=== PATIENT | male | born 1940 | race Two or more races ===

== ENCOUNTER → 2016-12-06 | Outpatient (REF) | payer MEDICARE ==
[2016-12-06 18:01] LABS: ALBUMIN 3.9 GM/DL (3.2-5.2); ALBUMIN/GLOBULIN RATIO 1.03 (1.00-1.93); BILIRUBIN,TOTAL 0.3 MG/DL (0.2-1.0); CALCIUM LEVEL 8.5 MG/DL (8.8-10.2); CREATININE FOR GFR 1.51 MG/DL (0.70-1.30); GLOMERULAR FILTRATION RATE 47.9 (>42); TOTAL PROTEIN 7.7 GM/DL (6.4-8.2)
[2016-12-06 18:03] LABS: POTASSIUM SERUM 5.2 MEQ/L (3.5-5.1)
[2016-12-06 18:32] LABS: MEAN CORPUSCULAR HEMOGLOBIN 34.5 pg (27.0-33.0); MEAN CORPUSCULAR HGB CONC 33.1 g/dl (32.0-36.5); MEAN CORPUSCULAR VOLUME 104.3 fl (80.0-96.0); RED CELL DISTRIBUTION WIDTH 13.5 % (11.5-14.5); WHITE BLOOD COUNT 8.4 K/mm3 (4.0-10.0)
[2016-12-06 19:16] LABS: EOSINOPHILS 1 % (0-5)
== END ==
LOC: M SFHCLERA 14:53
PROVIDERS: ATTEND Family Medicine
DX: S91.051A Open bite, right ankle, initial encounter (principal); I25.2 Old myocardial infarction; W54.0XXA Bitten by dog, initial encounter; Y92.9 Unspecified place or not applicable; Y93.9 Activity, unspecified; Y99.9 Unspecified external cause status; Z79.899 Other long term (current) drug therapy; Z79.82 Long term (current) use of aspirin
CPT/HCPCS: 80053; 80061; 83036; 85007; 85027; G0463

== ENCOUNTER 2017-03-07 13:54 | Emergency (ER) | payer MEDICARE ==
[~2017-03-07] VITALS: Ht 185.4 cm; Wt 77.1 kg
[2017-03-07] MEDS ORDERED: LISI-542 (14:13)
[2017-03-07] MEDS ORDERED: VITA400C97 PO (14:13)
[2017-03-07] MEDS ORDERED: IRON28TA PO (14:13)
[2017-03-07] MEDS ORDERED: MULTCAP11 PO (14:13)
[2017-03-07] MEDS ORDERED: ASCO25TA PO (14:13)
[2017-03-07] MEDS ORDERED: ASPI81TA85 PO (14:13)
[2017-03-07] MEDS ORDERED: HYDR500C12 (14:13)
[2017-03-07] MEDS ORDERED: METO-209 (14:13)
[2017-03-07] MEDS ORDERED: ATOR40TA (14:13)
--- NOTE | 2017-03-07 16:51 | REP ---
CT HEAD WITHOUT CONTRAST: HISTORY: Trauma. An area of decreased attentuation is present in the left basal ganglia. This represents an old lacunar infarction. Areas of decreased attenuation are present in the periventricular white matter. This represents small vessel ischemic disease. There is no intraparenchymal hemorrhage, mass, or midline shift. The ventricular system and cortical sulci are dilated consistent with mild volume loss. There is no extracerebral collection. There is no fracture. A small subgaleal hematoma is present overlying the left frontal and parietal bones at the vertex. The visualized sinuses are clear. IMPRESSION: 1. Old left basal ganglia lacunar infarction. 2. Small vessel ischemic disease. 2. Mild volume loss. Signed by Óscar Mathews MD 03/07/2017 04:56 P
--- NOTE | 2017-03-07 16:52 | REP ---
CT CERVICAL SPINE WITHOUT CONTRAST: HISTORY: Trauma. There is no acute fracture. Disc bulges are present at the C2-3 through C4-5 levels. Disc bulge with associated osteophyte formation are present at the C5-6 and C6-7 levels. There is minimal narrowing of the spinal canal. Uncinate process and/or facet hypertrophy are present at the C2-3 through C7-T1 levels. These findings produce minimal to moderate narrowing of the neural foramina. The C5-6 and C6-7 intervertebral discs are decreased in height consistent with disc degeneration. There are 2 mm of anterior subluxation of C3 on C4 and C4 on C5. A calcified granuloma is present in the right upper lobe. IMPRESSION: 1. There is no acute fracture. 2. There is cervical spondylosis at the C2-3 through C7-T1 levels. Signed by Óscar Mathews MD 03/07/2017 04:56 P
[2017-03-07 17:28] VITALS: BP 111/55
== END 2017-03-07 17:30 | disposition home or self-care (01) ==
LOC: M ED 15:06
DX: S01.01XA Laceration without foreign body of scalp, initial encounter (principal); W18.09XA Striking against other object with subsequent fall, initial encounter; Y92.014 Private driveway to single-family (private) house as the place of occurrence of the external cause; Y93.55 Activity, bike riding; Y99.8 Other external cause status; M47.813 Spondylosis without myelopathy or radiculopathy, cervicothoracic region; I73.9 Peripheral vascular disease, unspecified; I10 Essential (primary) hypertension; I25.2 Old myocardial infarction; F41.9 Anxiety disorder, unspecified; E78.00 Pure hypercholesterolemia, unspecified; Z79.82 Long term (current) use of aspirin; Z79.899 Other long term (current) drug therapy

== ENCOUNTER → 2017-03-28 | Outpatient (CLI) | payer MEDICARE ==
[~2017-03-28] MED LIST: ASCO25TA PO; ASPI81TA85 PO; ATOR40TA75; HYDR500C3; IRON28TA PO; LISI-542; METO1TAB33; MULTCAP11 PO; VITA400C97 PO
--- NOTE | 2017-03-28 17:42 | REP ---
RIGHT ANKLE, FOUR VIEWS: HISTORY: Injury. There is no acute fracture or dislocation. The joint space is normal in appearance. Osteophytes are present on the inferior and posterior calcaneus. A calcification is present lateral to the distal fibula. This represents ligamentous of tendon calcification. IMPRESSION: There is no acute fracture or dislocation. Signed by Óscar Mathews MD 03/28/2017 06:21 P
== END ==
LOC: M LRY 17:08
PROVIDERS: ATTEND Nurse Practitioner Family
DX: M25.471 Effusion, right ankle (principal)
CPT/HCPCS: 73610; G0463

== ENCOUNTER → 2017-05-03 | Outpatient (REF) | payer MEDICARE | LOC: M SFHCLERA 13:51 | PROVIDERS: ATTEND Family Medicine | DX: M70.21 Olecranon bursitis, right elbow (principal) ==

== ENCOUNTER → 2017-10-03 | Outpatient (REF) | payer MEDICARE ==
[2017-10-03 14:12] LABS: APPEARANCE, URINE CLEAR (CLEAR); BACTERIA, URINE AUTO NEGATIVE (NEGATIVE); BILIRUBIN, URINE AUTO NEGATIVE (NEGATIVE); BLOOD, URINE BLOOD NEGATIVE (NEGATIVE); COLOR, URINE YELLOW (YELLOW); GLUCOSE, URINE (UA) AUTO NEGATIVE (NEGATIVE); KETONE, URINE AUTO NEGATIVE (NEGATIVE); LEUKOCYTE ESTERASE, URINE AUTO NEGATIVE (NEGATIVE); NITRITE, URINE AUTO NEGATIVE (NEGATIVE); PROTEIN, URINE AUTO NEGATIVE (NEGATIVE); RBC, URINE AUTO 0 /HPF (0-3); SPECIFIC GRAVITY URINE AUTO 1.013 (1.002-1.035); SQUAMOUS EPITHELIAL CELL UR AU 0 /HPF (0-6); UROBILINOGEN, URINE AUTO 0.2 mg/dL (0.0-2.0); WBC, URINE AUTO 1 /HPF (0-3)
== END ==
LOC: M SMT 13:18
DX: N40.0 Benign prostatic hyperplasia without lower urinary tract symptoms (principal); R35.1 Nocturia
CPT/HCPCS: 81001

== ENCOUNTER → 2017-10-16 | Outpatient (REF) | payer MEDICARE ==
[2017-10-16 19:04] LABS: D-DIMER QUANT 713.8 ng/ml (<500)
[2017-10-16 19:55] LABS: C REACTIVE PROTEIN QUANTITATIV 0.51 MG/DL (0.00-0.30)
[2017-10-16 20:02] LABS: ERYTHROCYTE SEDIMENTATION RATE 21 mm/hr (0-20); REASON FOR REVIEW COMPREHENSIVE REVIEW; SLIDE REVIEW Report; SOURCE PERIPHERAL SMEAR
== END ==
LOC: M LAB REF 17:19
DX: D47.3 Essential (hemorrhagic) thrombocythemia (principal)
CPT/HCPCS: 86140

== ENCOUNTER 2017-10-20 10:06 | Emergency (ER) | payer MEDICARE ==
[2017-10-20] MEDS: fentaNYL 100 MCG/2 ML INJECTION (J3010) IV (11:18)
[2017-10-20 11:28] LABS: EOS # 0.1 10^3/uL (0.0-0.50); EOS % 0.5 % (0.0-3.0); HEMATOCRIT 35.1 % (42.0-52.0); HEMOGLOBIN 11.6 g/dl (14.0-18.0); IMMATURE GRANULOCYTE # 0.1 10^3/uL (0-0); LYMPH # 1.1 10^3/uL (1.5-4.5); LYMPH % 8.5 % (24.0-44.0); MEAN CORPUSCULAR HEMOGLOBIN 34.6 pg (27.0-33.0); MEAN CORPUSCULAR VOLUME 104.8 fl (80.0-96.0); MONO % 33.1 % (0.0-5.0); NEUTROPHILS # 7.3 10^3/uL (1.8-7.7); NEUTROPHILS % 56.9 % (36.0-66.0); PLATELET COUNT, AUTOMATED 379 10^3/uL (150-450); RED BLOOD COUNT 3.35 10^6/uL (4.30-6.10); RED CELL DISTRIBUTION WIDTH 13.4 % (11.5-14.5); WHITE BLOOD COUNT 12.9 10^3/uL (4.0-10.0)
[2017-10-20 11:39] LABS: INR 1.28; PROTHROMBIN TIME 16.3 SECONDS (12.4-14.5)
[2017-10-20 11:40] LABS: PARTIAL THROMBOPLASTIN TIME 33.4 SECONDS (26.8-37.9)
[2017-10-20 11:57] LABS: ALBUMIN 4.1 GM/DL (3.2-5.2); ALBUMIN/GLOBULIN RATIO 1.08 (1.00-1.93); ALKALINE PHOSPHATASE 109 U/L (45-117); ALT/SGPT 26 U/L (12-78); ANION GAP 8 MEQ/L (8-16); AST/SGOT 32 U/L (7-37); BILIRUBIN,DIRECT 0.1 MG/DL (0.0-0.2); BILIRUBIN,TOTAL 0.4 MG/DL (0.2-1.0); BLOOD UREA NITROGEN 25 MG/DL (7-18); CALCIUM LEVEL 8.4 MG/DL (8.8-10.2); CARBON DIOXIDE LEVEL 25 MEQ/L (21-32); CHLORIDE LEVEL 105 MEQ/L (98-107); CREATININE FOR GFR 1.59 MG/DL (0.70-1.30); GLOMERULAR FILTRATION RATE 45.1 (>42); GLUCOSE, FASTING 98 MG/DL (70-100); LIPASE 187 U/L (73-393); POTASSIUM SERUM 4.8 MEQ/L (3.5-5.1); SODIUM LEVEL 138 MEQ/L (136-145); TOTAL PROTEIN 7.9 GM/DL (6.4-8.2)
[2017-10-20 11:58] LABS: ADD MANUAL DIFFER NO; DIFF SLIDE NUMBER 142; MONO # 4.3 10^3/uL (0.0-0.8); POSITIVE DIFF POS FLAG
[2017-10-20 12:00] LABS: LACTIC ACID SEPSIS PROTOCOL 0.8 MMOL/L (0.4-2.0)
[2017-10-20] MEDS ORDERED: ISOVUE-370 76% 100ML VIAL (Q9967) As Ordered (12:00)
[2017-10-20] MEDS: OXYCODONE/APAP 5MG/325MG(BULK FOR ED) 1 TABLET PO (14:01)
== END 2017-10-20 14:12 | disposition home or self-care (01) ==
LOC: M ED 10:06
DX: M79.81 Nontraumatic hematoma of soft tissue (principal); I10 Essential (primary) hypertension; I45.10 Unspecified right bundle-branch block; I25.10 Atherosclerotic heart disease of native coronary artery without angina pectoris; E78.00 Pure hypercholesterolemia, unspecified; F41.9 Anxiety disorder, unspecified; F03.90 Unspecified dementia, unspecified severity, without behavioral disturbance, psychotic disturbance, mood disturbance, and anxiety; D61.9 Aplastic anemia, unspecified; Z79.899 Other long term (current) drug therapy

== ENCOUNTER 2017-10-22 18:45 | Inpatient (IN) | payer MEDICARE ==
[~2017-10-22 18:45] MED LIST changes: -ASCO25TA PO; -ASPI81TA85 PO; -ATOR40TA75; -HYDR500C3; +HYDROXYUREA 500 MG CAP PO; -IRON28TA PO; -LISI-542; -METO1TAB33; -MULTCAP11 PO; -VITA400C97 PO
[2017-10-22 19:15] LABS: BASO % 0.1 % (0.0-1.0); EOS % 0.2 % (0.0-3.0); HEMATOCRIT 30.3 % (42.0-52.0); IMMATURE GRANULOCYTE # 0.2 10^3/uL (0-0); IMMATURE GRANULOCYTE % 0.8 % (0-0); LYMPH # 0.9 10^3/uL (1.5-4.5); LYMPH % 4.7 % (24.0-44.0); MEAN CORPUSCULAR HEMOGLOBIN 34.6 pg (27.0-33.0); MEAN CORPUSCULAR VOLUME 104.8 fl (80.0-96.0); NEUTROPHILS # 14.5 10^3/uL (1.8-7.7); NEUTROPHILS % 75.2 % (36.0-66.0); PLATELET COUNT, AUTOMATED 347 10^3/uL (150-450); RED BLOOD COUNT 2.89 10^6/uL (4.30-6.10); RED CELL DISTRIBUTION WIDTH 13.4 % (11.5-14.5); WHITE BLOOD COUNT 19.3 10^3/uL (4.0-10.0)
[2017-10-22 19:17] LABS: VENOUS BASE EXCESS -2.6 (-2.0-2.0); VENOUS O2 SATURATION 47.7 % (60.0-80.0); VENOUS PARTIAL PRESSURE CO2 49.5 mmHg (38.0-50.0); VENOUS PARTIAL PRESSURE O2 28.1 mmHg (30.0-50.0); VENOUS PH 7.303 UNITS (7.330-7.430); VENOUS STANDARD HCO3 21.4 MEQ/L; VENOUS TOTAL CO2 25.5 MEQ/L (24.0-28.0)
[2017-10-22 19:34] LABS: AMMONIA 10 uMOL/L (<32)
[2017-10-22 19:37] LABS: OSMOLALITY SERUM 285 MOSM/KG (280-301)
[2017-10-22 19:38] LABS: LACTIC ACID SEPSIS PROTOCOL 1.1 MMOL/L (0.4-2.0)
[2017-10-22 19:40] LABS: MONO # 3.7 10^3/uL (0.0-0.8); POSITIVE DIFF POS FLAG; POSITIVE MORPH POS FLAG
[2017-10-22 19:53] LABS: BEDSIDE GLUCOSE 135 MG/DL (83-110)
[2017-10-22 19:54] LABS: ALBUMIN 3.7 GM/DL (3.2-5.2); ALBUMIN/GLOBULIN RATIO 1.06 (1.00-1.93); ALKALINE PHOSPHATASE 100 U/L (45-117); ALT/SGPT 20 U/L (12-78); ANION GAP 9 MEQ/L (8-16); AST/SGOT 31 U/L (7-37); BILIRUBIN,DIRECT 0.2 MG/DL (0.0-0.2); BILIRUBIN,TOTAL 0.6 MG/DL (0.2-1.0); BLOOD UREA NITROGEN 32 MG/DL (7-18); CALCIUM LEVEL 8.1 MG/DL (8.8-10.2); CARBON DIOXIDE LEVEL 25 MEQ/L (21-32); CHLORIDE LEVEL 100 MEQ/L (98-107); CPK CREATINE PHOSPHOKINASE 147 U/L (39-308); CREATININE FOR GFR 1.79 MG/DL (0.70-1.30); GLOMERULAR FILTRATION RATE 39.3 (>42); GLUCOSE, FASTING 129 MG/DL (70-100); POTASSIUM SERUM 5.1 MEQ/L (3.5-5.1); SODIUM LEVEL 134 MEQ/L (136-145); TOTAL PROTEIN 7.2 GM/DL (6.4-8.2); TROPONIN I < 0.02 NG/ML (< 0.10)
[2017-10-22 20:00] LABS: CK-MB VALUE MASS 2.6 NG/ML (0.0-3.6); MB/CK RELATIVE INDEX 1.76 (< OR =4)
[2017-10-22 21:04] LABS: AMORPHOUS SEDIMENT RFX SMALL (NEGATIVE); KETONE, URINE AUTO RFX NEGATIVE (NEGATIVE); LEUKOCYTE ESTERASE UR AUTO RFX NEGATIVE (NEGATIVE); MUCUS, URINE RFX SMALL (NEGATIVE); NITRITE, URINE AUTO RFX NEGATIVE (NEGATIVE); RBC, URINE AUTO RFX 3 /HPF (0-3); SPECIFIC GRAVITY UR AUTO RFX 1.017 (1.002-1.035); SQUAM EPITHELIAL CELL UR AURFX 0 /HPF (0-6); WBC, URINE AUTO RFX 3 /HPF (0-3)
[2017-10-22] MEDS: NS 500 ML IV (21:19)
[2017-10-22] MEDS ORDERED: NS 1,000 ML IV (22:29)
[2017-10-22] MEDS ORDERED: ONDANSETRON 4MG/2ML VIAL (J2405) IV (22:30)
[2017-10-22] MEDS ORDERED: ACETAMINOPHEN TAB 650MG DOSE (2X325MG) PO (22:30)
[2017-10-22] MEDS: LORazepam 2 MG/ML VIAL (J2060) IV (23:02)
[2017-10-22] MEDS: HALOPERIDOL 5 MG/ML VIAL (J1630) IM ×2 (23:10→23:46)
[2017-10-22 23:15] LABS: C REACTIVE PROTEIN QUANTITATIV 2.72 MG/DL (0.00-0.30); FREE THYROXINE INDEX 3.3 % (1.4-3.8); LDH LACTATE DEHYDROGENASE 313 U/L (87-241); T UPTAKE 34 % (33-40); THYROXINE (T4) 9.8 UG/DL (4.5-12.0)
[2017-10-22 23:23] LABS: REASON FOR REVIEW COMPREHENSIVE REVIEW; SLIDE REVIEW Report; SOURCE PERIPHERAL SMEAR
[2017-10-22] MEDS: PIPERACILLIN/TAZOBACTAM SOD 2.25 GM in APPROPRIATE DILUENT 1 EA IV (23:25)
[2017-10-22 23:48] LABS: ERYTHROCYTE SEDIMENTATION RATE 52 mm/hr (0-20)
[2017-10-22] MEDS: diphenhydrAMINE INJ 50MG/ML VIAL (J1200) IM (23:58)
[2017-10-23] MEDS: diphenhydrAMINE INJ 50MG/ML VIAL (J1200) IV (00:17)
[2017-10-23] MEDS: NS 1,000 ML IV (01:02)
[2017-10-23] MEDS: ASPIRIN 81 MG ENTERIC TAB PO ×2 (01:03→21:18)
[2017-10-23] MEDS: HYDROXYUREA 500 MG CAP PO ×2 (01:03→21:18)
[2017-10-23] MEDS: FERROUS SULFATE 325MG TAB PO ×2 (01:03→21:18)
[2017-10-23] MEDS: ASCORBIC ACID 500 MG TAB PO ×2 (01:03→21:18)
[2017-10-23 07:22] LABS: BASO % 0.1 % (0.0-1.0); EOS # 0.1 10^3/uL (0.0-0.50); EOS % 0.3 % (0.0-3.0); HEMATOCRIT 27.4 % (42.0-52.0); HEMOGLOBIN 9.1 g/dl (14.0-18.0); IMMATURE GRANULOCYTE # 0.1 10^3/uL (0-0); IMMATURE GRANULOCYTE % 0.7 % (0-0); LYMPH # 1.5 10^3/uL (1.5-4.5); LYMPH % 10.2 % (24.0-44.0); MEAN CORPUSCULAR HEMOGLOBIN 34.3 pg (27.0-33.0); MEAN CORPUSCULAR HGB CONC 33.2 g/dl (32.0-36.5); MEAN CORPUSCULAR VOLUME 103.4 fl (80.0-96.0); MONO % 25.7 % (0.0-5.0); NEUTROPHILS # 9.3 10^3/uL (1.8-7.7); PLATELET COUNT, AUTOMATED 321 10^3/uL (150-450); RED BLOOD COUNT 2.65 10^6/uL (4.30-6.10); RED CELL DISTRIBUTION WIDTH 13.2 % (11.5-14.5); WHITE BLOOD COUNT 14.8 10^3/uL (4.0-10.0)
[2017-10-23 07:44] LABS: ANION GAP 8 MEQ/L (8-16); BLOOD UREA NITROGEN 24 MG/DL (7-18); CALCIUM LEVEL 8.1 MG/DL (8.8-10.2); CARBON DIOXIDE LEVEL 24 MEQ/L (21-32); CHLORIDE LEVEL 105 MEQ/L (98-107); GLOMERULAR FILTRATION RATE 48.2 (>42); GLUCOSE, FASTING 80 MG/DL (70-100); SODIUM LEVEL 137 MEQ/L (136-145)
[2017-10-23 07:49] LABS: MONO # 3.8 10^3/uL (0.0-0.8); POSITIVE DIFF POS FLAG
[2017-10-23 08:43] LABS: C REACTIVE PROTEIN QUANTITATIV 2.57 MG/DL (0.00-0.30)
[2017-10-23] MEDS: MULTIVITAMINS/MINERALS THERAP 1 TAB PO (10:06)
[2017-10-23] MEDS: OSELTAMIVIR PHOSPHATE 30MG CAPSULE PO ×2 (10:06→21:17)
[2017-10-23] MEDS: VITAMIN D 1,000 INTERNATIONAL UNITS TABLET PO (10:06)
[2017-10-23] MEDS: ATORVASTATIN 20 MG TAB PO (10:06)
[2017-10-23] MEDS: HEPARIN SOD (PORCINE) 5000 UNITS/ML VIAL SQ (21:19)
[2017-10-24 06:29] LABS: HEMATOCRIT 29.5 % (42.0-52.0); HEMOGLOBIN 9.6 g/dl (14.0-18.0); MEAN CORPUSCULAR HEMOGLOBIN 33.8 pg (27.0-33.0); MEAN CORPUSCULAR HGB CONC 32.5 g/dl (32.0-36.5); MEAN CORPUSCULAR VOLUME 103.9 fl (80.0-96.0); PLATELET COUNT, AUTOMATED 350 10^3/uL (150-450); RED BLOOD COUNT 2.84 10^6/uL (4.30-6.10); RED CELL DISTRIBUTION WIDTH 13.1 % (11.5-14.5); WHITE BLOOD COUNT 14.5 10^3/uL (4.0-10.0)
[2017-10-24 06:30] LABS: ADD MANUAL DIFFER YES; DIFF SLIDE NUMBER 54; POSITIVE DIFF POS FLAG; POSITIVE MORPH POS FLAG
[2017-10-24 06:47] LABS: ANION GAP 6 MEQ/L (8-16); BLOOD UREA NITROGEN 21 MG/DL (7-18); C REACTIVE PROTEIN QUANTITATIV 2.94 MG/DL (0.00-0.30); CALCIUM LEVEL 8.4 MG/DL (8.8-10.2); CARBON DIOXIDE LEVEL 27 MEQ/L (21-32); CHLORIDE LEVEL 105 MEQ/L (98-107); CREATININE FOR GFR 1.33 MG/DL (0.70-1.30); GLOMERULAR FILTRATION RATE 55.4 (>42); GLUCOSE, FASTING 86 MG/DL (70-100); SODIUM LEVEL 138 MEQ/L (136-145)
[2017-10-24 06:55] LABS: ATYPICAL LYMPH 1 % (0-5); LYMPHOCYTES 14 % (16-52); MONOCYTES 26 % (0-8); NEUTROPHILS 59 % (35-75)
[2017-10-24 06:56] LABS: GIANT PLATELETS 2+; PLATELET ESTIMATE NORMAL (NORMAL)
[2017-10-24] MEDS: VITAMIN D 1,000 INTERNATIONAL UNITS TABLET PO (09:54)
[2017-10-24] MEDS: ATORVASTATIN 20 MG TAB PO (09:54)
[2017-10-24] MEDS: OSELTAMIVIR PHOSPHATE 30MG CAPSULE PO ×2 (09:54→20:26)
[2017-10-24] MEDS: MULTIVITAMINS/MINERALS THERAP 1 TAB PO (09:54)
[2017-10-24] MEDS: HEPARIN SOD (PORCINE) 5000 UNITS/ML VIAL SQ ×2 (09:55→20:26)
[2017-10-24] MEDS: METOPROLOL SUCC (TopROL XL) 50MG **XL** TAB PO (13:03)
[2017-10-24] MEDS: ASCORBIC ACID 500 MG TAB PO (20:25)
[2017-10-24] MEDS: ASPIRIN 81 MG ENTERIC TAB PO (20:25)
[2017-10-24] MEDS: FERROUS SULFATE 325MG TAB PO (20:25)
[2017-10-24] MEDS: HYDROXYUREA 500 MG CAP PO (20:25)
[2017-10-25 06:29] LABS: BASO % 0.1 % (0.0-1.0); EOS # 0.1 10^3/uL (0.0-0.50); EOS % 0.3 % (0.0-3.0); HEMATOCRIT 31.1 % (42.0-52.0); HEMOGLOBIN 10.3 g/dl (14.0-18.0); IMMATURE GRANULOCYTE # 0.1 10^3/uL (0-0); IMMATURE GRANULOCYTE % 0.3 % (0-0); LYMPH # 1.4 10^3/uL (1.5-4.5); LYMPH % 8.7 % (24.0-44.0); MEAN CORPUSCULAR HEMOGLOBIN 34.2 pg (27.0-33.0); MEAN CORPUSCULAR HGB CONC 33.1 g/dl (32.0-36.5); MEAN CORPUSCULAR VOLUME 103.3 fl (80.0-96.0); MONO % 25.5 % (0.0-5.0); NEUTROPHILS # 10.7 10^3/uL (1.8-7.7); NEUTROPHILS % 65.1 % (36.0-66.0); PLATELET COUNT, AUTOMATED 427 10^3/uL (150-450); RED BLOOD COUNT 3.01 10^6/uL (4.30-6.10); RED CELL DISTRIBUTION WIDTH 13.2 % (11.5-14.5); WHITE BLOOD COUNT 16.4 10^3/uL (4.0-10.0)
[2017-10-25 06:30] LABS: MONO # 4.2 10^3/uL (0.0-0.8); POSITIVE DIFF POS FLAG
[2017-10-25 06:49] LABS: ANION GAP 7 MEQ/L (8-16); BLOOD UREA NITROGEN 19 MG/DL (7-18); C REACTIVE PROTEIN QUANTITATIV 2.49 MG/DL (0.00-0.30); CALCIUM LEVEL 8.8 MG/DL (8.8-10.2); CARBON DIOXIDE LEVEL 26 MEQ/L (21-32); CHLORIDE LEVEL 103 MEQ/L (98-107); CREATININE FOR GFR 1.34 MG/DL (0.70-1.30); GLOMERULAR FILTRATION RATE 54.9 (>42); GLUCOSE, FASTING 98 MG/DL (70-100); POTASSIUM SERUM 3.9 MEQ/L (3.5-5.1); SODIUM LEVEL 136 MEQ/L (136-145)
[2017-10-25] MEDS: METOPROLOL SUCC (TopROL XL) 50MG **XL** TAB PO (09:00)
[2017-10-25] MEDS: MULTIVITAMINS/MINERALS THERAP 1 TAB PO (10:15)
[2017-10-25] MEDS: ATORVASTATIN 20 MG TAB PO (10:15)
[2017-10-25] MEDS: VITAMIN D 1,000 INTERNATIONAL UNITS TABLET PO (10:16)
[2017-10-25] MEDS: HEPARIN SOD (PORCINE) 5000 UNITS/ML VIAL SQ ×2 (10:16→20:31)
[2017-10-25] MEDS: OSELTAMIVIR PHOSPHATE 30MG CAPSULE PO ×2 (10:16→20:32)
[2017-10-25] MEDS: FERROUS SULFATE 325MG TAB PO (20:31)
[2017-10-25] MEDS: ASCORBIC ACID 500 MG TAB PO (20:32)
[2017-10-25] MEDS: ASPIRIN 81 MG ENTERIC TAB PO (20:32)
[2017-10-25] MEDS: HYDROXYUREA 500 MG CAP PO (20:32)
[2017-10-26 06:43] LABS: BASO % 0.1 % (0.0-1.0); EOS # 0.1 10^3/uL (0.0-0.50); EOS % 0.4 % (0.0-3.0); HEMATOCRIT 29.2 % (42.0-52.0); HEMOGLOBIN 9.7 g/dl (14.0-18.0); IMMATURE GRANULOCYTE # 0.1 10^3/uL (0-0); IMMATURE GRANULOCYTE % 0.4 % (0-0); LYMPH # 1.6 10^3/uL (1.5-4.5); LYMPH % 9.9 % (24.0-44.0); MEAN CORPUSCULAR HEMOGLOBIN 33.9 pg (27.0-33.0); MEAN CORPUSCULAR HGB CONC 33.2 g/dl (32.0-36.5); MEAN CORPUSCULAR VOLUME 102.1 fl (80.0-96.0); MONO # 4.9 10^3/uL (0.0-0.8); MONO % 30.3 % (0.0-5.0); NEUTROPHILS # 9.6 10^3/uL (1.8-7.7); NEUTROPHILS % 58.9 % (36.0-66.0); PLATELET COUNT, AUTOMATED 434 10^3/uL (150-450); POSITIVE DIFF POS FLAG; RED BLOOD COUNT 2.86 10^6/uL (4.30-6.10); WHITE BLOOD COUNT 16.3 10^3/uL (4.0-10.0)
[2017-10-26 06:59] LABS: ANION GAP 5 MEQ/L (8-16); BLOOD UREA NITROGEN 18 MG/DL (7-18); C REACTIVE PROTEIN QUANTITATIV 1.56 MG/DL (0.00-0.30); CALCIUM LEVEL 8.7 MG/DL (8.8-10.2); CARBON DIOXIDE LEVEL 27 MEQ/L (21-32); CHLORIDE LEVEL 105 MEQ/L (98-107); CREATININE FOR GFR 1.31 MG/DL (0.70-1.30); GLOMERULAR FILTRATION RATE 56.3 (>42); GLUCOSE, FASTING 93 MG/DL (70-100); POTASSIUM SERUM 4.3 MEQ/L (3.5-5.1); SODIUM LEVEL 137 MEQ/L (136-145)
[2017-10-26] MEDS: OSELTAMIVIR PHOSPHATE 30MG CAPSULE PO ×2 (10:12→20:34)
[2017-10-26] MEDS: ATORVASTATIN 20 MG TAB PO (10:13)
[2017-10-26] MEDS: MULTIVITAMINS/MINERALS THERAP 1 TAB PO (10:13)
[2017-10-26] MEDS: VITAMIN D 1,000 INTERNATIONAL UNITS TABLET PO (10:13)
[2017-10-26] MEDS: HEPARIN SOD (PORCINE) 5000 UNITS/ML VIAL SQ ×2 (10:14→20:34)
[2017-10-26] MEDS: METOPROLOL SUCC (TopROL XL) 50MG **XL** TAB PO (10:14)
[2017-10-26] MEDS: ASCORBIC ACID 500 MG TAB PO (20:34)
[2017-10-26] MEDS: HYDROXYUREA 500 MG CAP PO (20:34)
[2017-10-26] MEDS: FERROUS SULFATE 325MG TAB PO (20:35)
[2017-10-26] MEDS: ASPIRIN 81 MG ENTERIC TAB PO (20:35)
[2017-10-27 07:01] LABS: HEMOGLOBIN 10.1 g/dl (14.0-18.0); MEAN CORPUSCULAR HEMOGLOBIN 33.6 pg (27.0-33.0); MEAN CORPUSCULAR HGB CONC 32.6 g/dl (32.0-36.5); PLATELET COUNT, AUTOMATED 510 10^3/uL (150-450); RED BLOOD COUNT 3.01 10^6/uL (4.30-6.10); RED CELL DISTRIBUTION WIDTH 13.2 % (11.5-14.5)
[2017-10-27 07:19] LABS: ANION GAP 8 MEQ/L (8-16); BLOOD UREA NITROGEN 23 MG/DL (7-18); C REACTIVE PROTEIN QUANTITATIV 1.28 MG/DL (0.00-0.30); CALCIUM LEVEL 8.8 MG/DL (8.8-10.2); CARBON DIOXIDE LEVEL 26 MEQ/L (21-32); CHLORIDE LEVEL 104 MEQ/L (98-107); GLOMERULAR FILTRATION RATE 52.2 (>42); GLUCOSE, FASTING 85 MG/DL (70-100); POTASSIUM SERUM 4.2 MEQ/L (3.5-5.1); SODIUM LEVEL 138 MEQ/L (136-145)
[2017-10-27 07:21] LABS: ADD MANUAL DIFFER YES; DIFF SLIDE NUMBER 15; POSITIVE DIFF POS FLAG
[2017-10-27 07:46] LABS: ATYPICAL LYMPH 1 % (0-5); EOSINOPHILS 1 % (0-5); LYMPHOCYTES 8 % (16-52); MONOCYTES 24 % (0-8); NEUTROPHILS 66 % (35-75)
[2017-10-27 07:51] LABS: GIANT PLATELETS 1+
[2017-10-27 07:52] LABS: PLATELET ESTIMATE INCREASED (NORMAL)
[2017-10-27] MEDS: METOPROLOL SUCC (TopROL XL) 50MG **XL** TAB PO (09:00)
[2017-10-27] MEDS: ATORVASTATIN 20 MG TAB PO (09:13)
[2017-10-27] MEDS: MULTIVITAMINS/MINERALS THERAP 1 TAB PO (09:13)
[2017-10-27] MEDS: HEPARIN SOD (PORCINE) 5000 UNITS/ML VIAL SQ ×2 (09:13→20:51)
[2017-10-27] MEDS: VITAMIN D 1,000 INTERNATIONAL UNITS TABLET PO (09:14)
[2017-10-27] MEDS: OSELTAMIVIR PHOSPHATE 30MG CAPSULE PO ×2 (10:25→20:51)
[2017-10-27] MEDS: HYDROXYUREA 500 MG CAP PO (20:51)
[2017-10-27] MEDS: FERROUS SULFATE 325MG TAB PO (20:51)
[2017-10-27] MEDS: ASCORBIC ACID 500 MG TAB PO (20:52)
[2017-10-27] MEDS: ASPIRIN 81 MG ENTERIC TAB PO (20:52)
[2017-10-28 06:23] LABS: BASO % 0.1 % (0.0-1.0); EOS # 0.1 10^3/uL (0.0-0.50); EOS % 0.5 % (0.0-3.0); HEMATOCRIT 31.5 % (42.0-52.0); HEMOGLOBIN 10.3 g/dl (14.0-18.0); IMMATURE GRANULOCYTE # 0.1 10^3/uL (0-0); IMMATURE GRANULOCYTE % 0.7 % (0-0); LYMPH # 1.8 10^3/uL (1.5-4.5); LYMPH % 9.8 % (24.0-44.0); MEAN CORPUSCULAR HEMOGLOBIN 33.4 pg (27.0-33.0); MEAN CORPUSCULAR HGB CONC 32.7 g/dl (32.0-36.5); MEAN CORPUSCULAR VOLUME 102.3 fl (80.0-96.0); MONO % 34.5 % (0.0-5.0); NEUTROPHILS % 54.4 % (36.0-66.0); PLATELET COUNT, AUTOMATED 553 10^3/uL (150-450); RED BLOOD COUNT 3.08 10^6/uL (4.30-6.10); RED CELL DISTRIBUTION WIDTH 13.2 % (11.5-14.5); WHITE BLOOD COUNT 18.5 10^3/uL (4.0-10.0)
[2017-10-28 06:56] LABS: ANION GAP 10 MEQ/L (8-16); BLOOD UREA NITROGEN 25 MG/DL (7-18); CARBON DIOXIDE LEVEL 22 MEQ/L (21-32); CHLORIDE LEVEL 104 MEQ/L (98-107); CREATININE FOR GFR 1.35 MG/DL (0.70-1.30); GLOMERULAR FILTRATION RATE 54.4 (>42); GLUCOSE, FASTING 88 MG/DL (70-100); MAGNESIUM LEVEL 2.3 MG/DL (1.8-2.4); MONO # 6.4 10^3/uL (0.0-0.8); POSITIVE DIFF POS FLAG; SODIUM LEVEL 136 MEQ/L (136-145)
[2017-10-28] MEDS: VITAMIN D 1,000 INTERNATIONAL UNITS TABLET PO (08:12)
[2017-10-28] MEDS: MULTIVITAMINS/MINERALS THERAP 1 TAB PO (08:12)
[2017-10-28] MEDS: HEPARIN SOD (PORCINE) 5000 UNITS/ML VIAL SQ ×2 (08:12→19:59)
[2017-10-28] MEDS: ATORVASTATIN 20 MG TAB PO (08:13)
[2017-10-28] MEDS: OSELTAMIVIR PHOSPHATE 30MG CAPSULE PO (08:13)
[2017-10-28] MEDS: METOPROLOL SUCC (TopROL XL) 50MG **XL** TAB PO (08:14)
[2017-10-28] MEDS: BISACODYL 5 MG TAB PO (10:21)
[2017-10-28] MEDS: ASPIRIN 81 MG ENTERIC TAB PO (19:57)
[2017-10-28] MEDS: FERROUS SULFATE 325MG TAB PO (19:58)
[2017-10-28] MEDS: HYDROXYUREA 500 MG CAP PO (19:58)
[2017-10-28] MEDS: ASCORBIC ACID 500 MG TAB PO (19:58)
[2017-10-29] MEDS: ATORVASTATIN 20 MG TAB PO (08:13)
[2017-10-29] MEDS: MULTIVITAMINS/MINERALS THERAP 1 TAB PO (08:13)
[2017-10-29] MEDS: VITAMIN D 1,000 INTERNATIONAL UNITS TABLET PO (08:13)
[2017-10-29] MEDS: HEPARIN SOD (PORCINE) 5000 UNITS/ML VIAL SQ ×2 (08:14→21:52)
[2017-10-29] MEDS: METOPROLOL SUCC (TopROL XL) 50MG **XL** TAB PO (08:14)
[2017-10-29 08:19] LABS: BASO % 0.1 % (0.0-1.0); EOS # 0.1 10^3/uL (0.0-0.50); EOS % 0.5 % (0.0-3.0); HEMATOCRIT 30.7 % (42.0-52.0); HEMOGLOBIN 10.1 g/dl (14.0-18.0); IMMATURE GRANULOCYTE # 0.1 10^3/uL (0-0); IMMATURE GRANULOCYTE % 0.6 % (0-0); LYMPH # 1.3 10^3/uL (1.5-4.5); LYMPH % 7.8 % (24.0-44.0); MEAN CORPUSCULAR HEMOGLOBIN 33.8 pg (27.0-33.0); MEAN CORPUSCULAR HGB CONC 32.9 g/dl (32.0-36.5); MEAN CORPUSCULAR VOLUME 102.7 fl (80.0-96.0); MONO % 37.2 % (0.0-5.0); NEUTROPHILS # 8.8 10^3/uL (1.8-7.7); NEUTROPHILS % 53.8 % (36.0-66.0); PLATELET COUNT, AUTOMATED 542 10^3/uL (150-450); RED BLOOD COUNT 2.99 10^6/uL (4.30-6.10); RED CELL DISTRIBUTION WIDTH 13.4 % (11.5-14.5); WHITE BLOOD COUNT 16.4 10^3/uL (4.0-10.0)
[2017-10-29 08:41] LABS: ANION GAP 5 MEQ/L (8-16); BLOOD UREA NITROGEN 25 MG/DL (7-18); CALCIUM LEVEL 8.9 MG/DL (8.8-10.2); CARBON DIOXIDE LEVEL 26 MEQ/L (21-32); CHLORIDE LEVEL 106 MEQ/L (98-107); GLOMERULAR FILTRATION RATE 52.2 (>42); GLUCOSE, FASTING 92 MG/DL (70-100); MAGNESIUM LEVEL 2.5 MG/DL (1.8-2.4); POTASSIUM SERUM 4.6 MEQ/L (3.5-5.1); SODIUM LEVEL 137 MEQ/L (136-145)
[2017-10-29 08:45] LABS: MONO # 6.1 10^3/uL (0.0-0.8); POSITIVE DIFF POS FLAG
[2017-10-29] MEDS: ASPIRIN 81 MG ENTERIC TAB PO (21:51)
[2017-10-29] MEDS: FERROUS SULFATE 325MG TAB PO (21:51)
[2017-10-29] MEDS: ASCORBIC ACID 500 MG TAB PO (21:51)
[2017-10-29] MEDS: HYDROXYUREA 500 MG CAP PO (21:52)
[2017-10-30 05:50] LABS: HEMATOCRIT 29.6 % (42.0-52.0); HEMOGLOBIN 9.7 g/dl (14.0-18.0); MEAN CORPUSCULAR HGB CONC 32.8 g/dl (32.0-36.5); MEAN CORPUSCULAR VOLUME 103.9 fl (80.0-96.0); PLATELET COUNT, AUTOMATED 488 10^3/uL (150-450); RED BLOOD COUNT 2.85 10^6/uL (4.30-6.10); RED CELL DISTRIBUTION WIDTH 13.4 % (11.5-14.5); WHITE BLOOD COUNT 15.6 10^3/uL (4.0-10.0)
[2017-10-30 05:53] LABS: ADD MANUAL DIFFER YES; DIFF SLIDE NUMBER 49; POSITIVE DIFF POS FLAG; POSITIVE MORPH POS FLAG
[2017-10-30 06:09] LABS: ANION GAP 9 MEQ/L (8-16); BLOOD UREA NITROGEN 27 MG/DL (7-18); CARBON DIOXIDE LEVEL 25 MEQ/L (21-32); CHLORIDE LEVEL 102 MEQ/L (98-107); CREATININE FOR GFR 1.47 MG/DL (0.70-1.30); GLOMERULAR FILTRATION RATE 49.3 (>42); GLUCOSE, FASTING 93 MG/DL (70-100); MAGNESIUM LEVEL 2.4 MG/DL (1.8-2.4); POTASSIUM SERUM 4.2 MEQ/L (3.5-5.1); SODIUM LEVEL 136 MEQ/L (136-145)
[2017-10-30 07:33] LABS: ANISOCYTOSIS 2+; BASOPHILS 1 % (0-4); EOSINOPHILS 2 % (0-5); LYMPHOCYTES 14 % (16-52); MONOCYTES 25 % (0-8); MYELOCYTES 1 % (0-0); NEUTROPHILS 57 % (35-75)
[2017-10-30 07:34] LABS: PLATELET ESTIMATE INCREASED (NORMAL); POLYCHROMASIA 1+
[2017-10-30] MEDS: ATORVASTATIN 20 MG TAB PO (09:00)
[2017-10-30] MEDS: VITAMIN D 1,000 INTERNATIONAL UNITS TABLET PO (09:00)
[2017-10-30] MEDS: METOPROLOL SUCC (TopROL XL) 50MG **XL** TAB PO (09:00)
[2017-10-30] MEDS: MULTIVITAMINS/MINERALS THERAP 1 TAB PO (09:00)
[2017-10-30] MEDS: HEPARIN SOD (PORCINE) 5000 UNITS/ML VIAL SQ ×2 (09:00→21:50)
[2017-10-30] MEDS: HYDROXYUREA 500 MG CAP PO (21:50)
[2017-10-30] MEDS: ASPIRIN 81 MG ENTERIC TAB PO (21:51)
[2017-10-30] MEDS: FERROUS SULFATE 325MG TAB PO (21:51)
[2017-10-30] MEDS: ASCORBIC ACID 500 MG TAB PO (21:51)
[2017-10-31 05:43] LABS: BASO % 0.2 % (0.0-1.0); EOS # 0.2 10^3/uL (0.0-0.50); HEMATOCRIT 30.5 % (42.0-52.0); HEMOGLOBIN 9.9 g/dl (14.0-18.0); IMMATURE GRANULOCYTE # 0.1 10^3/uL (0-0); IMMATURE GRANULOCYTE % 0.8 % (0-0); LYMPH # 1.3 10^3/uL (1.5-4.5); LYMPH % 8.1 % (24.0-44.0); MEAN CORPUSCULAR HEMOGLOBIN 33.8 pg (27.0-33.0); MEAN CORPUSCULAR HGB CONC 32.5 g/dl (32.0-36.5); MEAN CORPUSCULAR VOLUME 104.1 fl (80.0-96.0); MONO % 43.3 % (0.0-5.0); NEUTROPHILS # 7.7 10^3/uL (1.8-7.7); NEUTROPHILS % 46.6 % (36.0-66.0); PLATELET COUNT, AUTOMATED 501 10^3/uL (150-450); RED BLOOD COUNT 2.93 10^6/uL (4.30-6.10); RED CELL DISTRIBUTION WIDTH 13.5 % (11.5-14.5); WHITE BLOOD COUNT 16.5 10^3/uL (4.0-10.0)
[2017-10-31 05:45] LABS: MONO # 7.2 10^3/uL (0.0-0.8); POSITIVE DIFF POS FLAG
[2017-10-31 06:05] LABS: ANION GAP 9 MEQ/L (8-16); BLOOD UREA NITROGEN 25 MG/DL (7-18); CARBON DIOXIDE LEVEL 24 MEQ/L (21-32); CHLORIDE LEVEL 105 MEQ/L (98-107); CREATININE FOR GFR 1.38 MG/DL (0.70-1.30); GLOMERULAR FILTRATION RATE 53.1 (>42); GLUCOSE, FASTING 88 MG/DL (70-100); MAGNESIUM LEVEL 2.5 MG/DL (1.8-2.4); POTASSIUM SERUM 4.3 MEQ/L (3.5-5.1); SODIUM LEVEL 138 MEQ/L (136-145)
[2017-10-31] MEDS: HEPARIN SOD (PORCINE) 5000 UNITS/ML VIAL SQ ×2 (08:07→20:33)
[2017-10-31] MEDS: VITAMIN D 1,000 INTERNATIONAL UNITS TABLET PO (08:07)
[2017-10-31] MEDS: METOPROLOL SUCC (TopROL XL) 50MG **XL** TAB PO (08:07)
[2017-10-31] MEDS: MULTIVITAMINS/MINERALS THERAP 1 TAB PO (08:07)
[2017-10-31] MEDS: ATORVASTATIN 20 MG TAB PO (08:07)
[2017-10-31] MEDS: FERROUS SULFATE 325MG TAB PO (20:31)
[2017-10-31] MEDS: ASCORBIC ACID 500 MG TAB PO (20:32)
[2017-10-31] MEDS: HYDROXYUREA 500 MG CAP PO (20:32)
[2017-10-31] MEDS: ASPIRIN 81 MG ENTERIC TAB PO (20:32)
[2017-11-01 06:50] LABS: BASO % 0.2 % (0.0-1.0); EOS # 0.1 10^3/uL (0.0-0.50); EOS % 0.9 % (0.0-3.0); HEMATOCRIT 31.5 % (42.0-52.0); HEMOGLOBIN 10.2 g/dl (14.0-18.0); IMMATURE GRANULOCYTE % 0.8 % (0-3.0); LYMPH # 1.2 10^3/uL (1.5-4.5); LYMPH % 8.5 % (24.0-44.0); MEAN CORPUSCULAR HGB CONC 32.4 g/dl (32.0-36.5); NEUTROPHILS # 6.4 10^3/uL (1.8-7.7); NEUTROPHILS % 46.6 % (36.0-66.0); PLATELET COUNT, AUTOMATED 484 10^3/uL (150-450); RED CELL DISTRIBUTION WIDTH 13.8 % (11.5-14.5); WHITE BLOOD COUNT 13.7 10^3/uL (4.0-10.0)
[2017-11-01 06:54] LABS: MONO # 5.9 10^3/uL (0.0-0.8); POSITIVE DIFF POS FLAG
[2017-11-01 07:11] LABS: ANION GAP 7 MEQ/L (8-16); BLOOD UREA NITROGEN 29 MG/DL (7-18); CARBON DIOXIDE LEVEL 26 MEQ/L (21-32); CHLORIDE LEVEL 105 MEQ/L (98-107); CREATININE FOR GFR 1.45 MG/DL (0.70-1.30); GLOMERULAR FILTRATION RATE 50.1 (>42); GLUCOSE, FASTING 88 MG/DL (70-100); MAGNESIUM LEVEL 2.6 MG/DL (1.8-2.4); POTASSIUM SERUM 4.5 MEQ/L (3.5-5.1); SODIUM LEVEL 138 MEQ/L (136-145)
[2017-11-01] MEDS: ATORVASTATIN 20 MG TAB PO (09:34)
[2017-11-01] MEDS: MULTIVITAMINS/MINERALS THERAP 1 TAB PO (09:34)
[2017-11-01] MEDS: VITAMIN D 1,000 INTERNATIONAL UNITS TABLET PO (09:35)
[2017-11-01] MEDS: HEPARIN SOD (PORCINE) 5000 UNITS/ML VIAL SQ ×2 (09:35→21:18)
[2017-11-01] MEDS: METOPROLOL SUCC (TopROL XL) 50MG **XL** TAB PO (09:47)
[2017-11-01] MEDS: ASPIRIN 81 MG ENTERIC TAB PO (21:18)
[2017-11-01] MEDS: FERROUS SULFATE 325MG TAB PO (21:18)
[2017-11-01] MEDS: HYDROXYUREA 500 MG CAP PO (21:18)
[2017-11-01] MEDS: ASCORBIC ACID 500 MG TAB PO (21:18)
[2017-11-02 06:41] LABS: BASO % 0.2 % (0.0-1.0); EOS # 0.1 10^3/uL (0.0-0.50); EOS % 0.9 % (0.0-3.0); HEMATOCRIT 30.5 % (42.0-52.0); HEMOGLOBIN 9.9 g/dl (14.0-18.0); IMMATURE GRANULOCYTE % 0.6 % (0-3.0); LYMPH # 1.2 10^3/uL (1.5-4.5); LYMPH % 9.5 % (24.0-44.0); MEAN CORPUSCULAR HEMOGLOBIN 33.8 pg (27.0-33.0); MEAN CORPUSCULAR HGB CONC 32.5 g/dl (32.0-36.5); MEAN CORPUSCULAR VOLUME 104.1 fl (80.0-96.0); MONO % 40.9 % (0.0-5.0); NEUTROPHILS # 6.1 10^3/uL (1.8-7.7); NEUTROPHILS % 47.9 % (36.0-66.0); PLATELET COUNT, AUTOMATED 488 10^3/uL (150-450); RED BLOOD COUNT 2.93 10^6/uL (4.30-6.10); RED CELL DISTRIBUTION WIDTH 13.7 % (11.5-14.5); WHITE BLOOD COUNT 12.7 10^3/uL (4.0-10.0)
[2017-11-02 07:02] LABS: ANION GAP 7 MEQ/L (8-16); BLOOD UREA NITROGEN 31 MG/DL (7-18); CALCIUM LEVEL 8.6 MG/DL (8.8-10.2); CARBON DIOXIDE LEVEL 26 MEQ/L (21-32); CHLORIDE LEVEL 104 MEQ/L (98-107); CREATININE FOR GFR 1.51 MG/DL (0.70-1.30); GLOMERULAR FILTRATION RATE 47.8 (>42); GLUCOSE, FASTING 99 MG/DL (70-100); MAGNESIUM LEVEL 2.5 MG/DL (1.8-2.4); POTASSIUM SERUM 4.5 MEQ/L (3.5-5.1); SODIUM LEVEL 137 MEQ/L (136-145)
[2017-11-02 07:28] LABS: ADD MANUAL DIFFER NO; DIFF SLIDE NUMBER 8; MONO # 5.2 10^3/uL (0.0-0.8); POSITIVE DIFF POS FLAG
[2017-11-02] MEDS: VITAMIN D 1,000 INTERNATIONAL UNITS TABLET PO (08:59)
[2017-11-02] MEDS: HEPARIN SOD (PORCINE) 5000 UNITS/ML VIAL SQ (08:59)
[2017-11-02] MEDS: ATORVASTATIN 20 MG TAB PO (08:59)
[2017-11-02] MEDS: MULTIVITAMINS/MINERALS THERAP 1 TAB PO (08:59)
[2017-11-02] MEDS: METOPROLOL SUCC (TopROL XL) 50MG **XL** TAB PO (09:00)
== END 2017-11-02 12:40 | DRG 193 ==
LOC: M ED INP 22:29 → M MSPAV 10-23 15:14 → M ED 18:45
DX: J10.1 Influenza due to other identified influenza virus with other respiratory manifestations (principal); G93.40 Encephalopathy, unspecified; D46.9 Myelodysplastic syndrome, unspecified; M79.81 Nontraumatic hematoma of soft tissue; Z66 Do not resuscitate; I10 Essential (primary) hypertension; I45.10 Unspecified right bundle-branch block; I25.10 Atherosclerotic heart disease of native coronary artery without angina pectoris; E78.00 Pure hypercholesterolemia, unspecified; R29.6 Repeated falls; D47.3 Essential (hemorrhagic) thrombocythemia; Z79.899 Other long term (current) drug therapy; I25.2 Old myocardial infarction; Z79.82 Long term (current) use of aspirin; Z95.9 Presence of cardiac and vascular implant and graft, unspecified

== ENCOUNTER → 2017-10-22 | Outpatient (REF) | payer MEDICARE ==
[2017-10-22 20:25] LABS: ANION GAP 9 MEQ/L (8-16); BLOOD UREA NITROGEN 31 MG/DL (7-18); CALCIUM LEVEL 8.4 MG/DL (8.8-10.2); CARBON DIOXIDE LEVEL 26 MEQ/L (21-32); CHLORIDE LEVEL 99 MEQ/L (98-107); CREATININE FOR GFR 1.71 MG/DL (0.70-1.30); GLOMERULAR FILTRATION RATE 41.4 (>42); GLUCOSE, FASTING 111 MG/DL (70-100); POTASSIUM SERUM 5.1 MEQ/L (3.5-5.1); SODIUM LEVEL 134 MEQ/L (136-145)
[2017-10-22 21:12] LABS: BASO % 0.1 % (0.0-1.0); EOS # 0.1 10^3/uL (0.0-0.50); EOS % 0.3 % (0.0-3.0); HEMOGLOBIN 10.8 g/dl (14.0-18.0); IMMATURE GRANULOCYTE # 0.1 10^3/uL (0-0); IMMATURE GRANULOCYTE % 0.8 % (0-0); LYMPH # 1.2 10^3/uL (1.5-4.5); LYMPH % 6.8 % (24.0-44.0); MEAN CORPUSCULAR HEMOGLOBIN 34.3 pg (27.0-33.0); MEAN CORPUSCULAR HGB CONC 32.7 g/dl (32.0-36.5); MEAN CORPUSCULAR VOLUME 104.8 fl (80.0-96.0); MONO % 23.6 % (0.0-5.0); NEUTROPHILS # 12.1 10^3/uL (1.8-7.7); NEUTROPHILS % 68.4 % (36.0-66.0); PLATELET COUNT, AUTOMATED 384 10^3/uL (150-450); RED BLOOD COUNT 3.15 10^6/uL (4.30-6.10); RED CELL DISTRIBUTION WIDTH 13.6 % (11.5-14.5); WHITE BLOOD COUNT 17.7 10^3/uL (4.0-10.0)
[2017-10-22 21:39] LABS: MONO # 4.2 10^3/uL (0.0-0.8); POSITIVE DIFF POS FLAG
== END ==
LOC: M SFHCLERA 11:52
DX: D47.3 Essential (hemorrhagic) thrombocythemia (principal); S30.1XXD Contusion of abdominal wall, subsequent encounter
CPT/HCPCS: 80048

== ENCOUNTER → 2017-11-07 | Outpatient (REF) | payer MEDICARE | LOC: SKLAB8 08:00 | DX: R00.1 Bradycardia, unspecified (principal) | CPT/HCPCS: 93005 ==

== ENCOUNTER → 2017-11-08 | Outpatient (REF) | payer MEDICARE | LOC: SKLAB8 08:15 | DX: I25.10 Atherosclerotic heart disease of native coronary artery without angina pectoris (principal) ==

== ENCOUNTER → 2017-11-08 | Outpatient (REF) | payer MEDICARE ==
[2017-11-08 09:17] LABS: HEMATOCRIT 31.9 % (42.0-52.0); HEMOGLOBIN 10.1 g/dl (14.0-18.0); MEAN CORPUSCULAR HGB CONC 31.7 g/dl (32.0-36.5); MEAN CORPUSCULAR VOLUME 107.4 fl (80.0-96.0); PLATELET COUNT, AUTOMATED 518 10^3/uL (150-450); RED BLOOD COUNT 2.97 10^6/uL (4.30-6.10); RED CELL DISTRIBUTION WIDTH 14.3 % (11.5-14.5); WHITE BLOOD COUNT 12.9 10^3/uL (4.0-10.0)
[2017-11-08 09:54] LABS: ALBUMIN 4.1 GM/DL (3.2-5.2); ALBUMIN/GLOBULIN RATIO 1.08 (1.00-1.93); ALKALINE PHOSPHATASE 102 U/L (45-117); ALT/SGPT 20 U/L (12-78); ANION GAP 8 MEQ/L (8-16); AST/SGOT 29 U/L (7-37); BILIRUBIN,TOTAL 0.4 MG/DL (0.2-1.0); BLOOD UREA NITROGEN 39 MG/DL (7-18); CALCIUM LEVEL 8.8 MG/DL (8.8-10.2); CARBON DIOXIDE LEVEL 27 MEQ/L (21-32); CHLORIDE LEVEL 101 MEQ/L (98-107); CHOLESTEROL LEVEL 97 MG/DL (<200); CHOLESTEROL RISK RATIO 2.487 (<5); CREATININE FOR GFR 1.61 MG/DL (0.70-1.30); GLOMERULAR FILTRATION RATE 44.4 (>42); GLUCOSE, FASTING 113 MG/DL (70-100); HDL CHOLESTEROL 39 MG/DL (>40); IRON (FE) 58 UG/DL (65-175); LDL CHOLESTEROL 38.4 MG/DL (<100); NON-HDL-C 58 MG/DL; SODIUM LEVEL 136 MEQ/L (136-145); TOTAL PROTEIN 7.9 GM/DL (6.4-8.2); TRIGLYCERIDES LEVEL 98 MG/DL (<150)
[2017-11-08 09:56] LABS: POTASSIUM SERUM 5.2 MEQ/L (3.5-5.1)
== END ==
LOC: SKLAB8 07:00
DX: I25.10 Atherosclerotic heart disease of native coronary artery without angina pectoris (principal); I10 Essential (primary) hypertension; E78.5 Hyperlipidemia, unspecified; D64.9 Anemia, unspecified; Z79.82 Long term (current) use of aspirin
CPT/HCPCS: 93005

== ENCOUNTER → 2017-11-12 | Outpatient (REF) | payer MEDICARE ==
[2017-11-12 08:24] LABS: ANION GAP 6 MEQ/L (8-16); BLOOD UREA NITROGEN 33 MG/DL (7-18); CALCIUM LEVEL 8.9 MG/DL (8.8-10.2); CARBON DIOXIDE LEVEL 27 MEQ/L (21-32); CHLORIDE LEVEL 107 MEQ/L (98-107); CREATININE FOR GFR 1.35 MG/DL (0.70-1.30); GLOMERULAR FILTRATION RATE 54.4 (>42); GLUCOSE, FASTING 87 MG/DL (70-100); SODIUM LEVEL 140 MEQ/L (136-145)
[2017-11-12 08:26] LABS: POTASSIUM SERUM 5.3 MEQ/L (3.5-5.1)
== END ==
LOC: SKLAB8 08:00
DX: E87.5 Hyperkalemia (principal)
CPT/HCPCS: 80048

== ENCOUNTER → 2018-02-27 | Outpatient (REF) | payer MEDICARE ==
[2018-02-27 10:47] LABS: ANION GAP 7 MEQ/L (8-16); BLOOD UREA NITROGEN 30 MG/DL (7-18); CALCIUM LEVEL 8.9 MG/DL (8.8-10.2); CARBON DIOXIDE LEVEL 25 MEQ/L (21-32); CHLORIDE LEVEL 108 MEQ/L (98-107); CREATININE FOR GFR 1.74 MG/DL (0.70-1.30); GLOMERULAR FILTRATION RATE 40.6 (>42); GLUCOSE, FASTING 84 MG/DL (70-100); SODIUM LEVEL 140 MEQ/L (136-145)
== END ==
LOC: SKLAB2 09:06 → SKLAB3 09:06
DX: I10 Essential (primary) hypertension (principal); E87.5 Hyperkalemia
CPT/HCPCS: 36415

== ENCOUNTER 2018-04-22 20:40 | Emergency (ER) | payer MEDICARE ==
[2018-04-22 22:03] LABS: HEMATOCRIT 33.8 % (42.0-52.0); HEMOGLOBIN 10.9 g/dl (13.5-17.5); MEAN CORPUSCULAR HEMOGLOBIN 35.5 pg (27.0-33.0); MEAN CORPUSCULAR HGB CONC 32.2 g/dl (32.0-36.5); MEAN CORPUSCULAR VOLUME 110.1 fl (80.0-96.0); PLATELET COUNT, AUTOMATED 333 10^3/uL (150-450); RED BLOOD COUNT 3.07 10^6/uL (4.30-6.10); RED CELL DISTRIBUTION WIDTH 16.6 % (11.5-14.5); WHITE BLOOD COUNT 19.7 10^3/uL (4.0-10.0)
[2018-04-22 22:30] LABS: ANION GAP 8 MEQ/L (8-16); BLOOD UREA NITROGEN 39 MG/DL (7-18); CARBON DIOXIDE LEVEL 26 MEQ/L (21-32); CHLORIDE LEVEL 106 MEQ/L (98-107); CK-MB VALUE MASS 3.5 NG/ML (<3.6); CPK CREATINE PHOSPHOKINASE 152 U/L (39-308); CREATININE FOR GFR 1.81 MG/DL (0.70-1.30); GLOMERULAR FILTRATION RATE 38.8 (>42); GLUCOSE, FASTING 118 MG/DL (70-100); POTASSIUM SERUM 4.4 MEQ/L (3.5-5.1); SODIUM LEVEL 140 MEQ/L (136-145); TROPONIN I < 0.02 NG/ML (< 0.10)
[2018-04-22] MEDS: LIDOCAINE W/EPINEPHRINE 1% 20ML VIAL SC (22:38)
[2018-04-22 22:41] LABS: INR 1.29; PROTHROMBIN TIME 16.2 SECONDS (12.1-14.4)
== END 2018-04-22 23:30 | disposition home or self-care (01) ==
LOC: M ED 20:40
DX: S01.01XA Laceration without foreign body of scalp, initial encounter (principal); S00.93XA Contusion of unspecified part of head, initial encounter; W18.2XXA Fall in (into) shower or empty bathtub, initial encounter; Y92.121 Bathroom in nursing home as the place of occurrence of the external cause; I10 Essential (primary) hypertension; K21.9 Gastro-esophageal reflux disease without esophagitis; F41.9 Anxiety disorder, unspecified; Z79.899 Other long term (current) drug therapy
CPT/HCPCS: 71045

== ENCOUNTER 2018-04-23 04:01 | Inpatient (IN) | payer MEDICARE ==
[2018-04-23 04:36] LABS: BASO # 0.1 10^3/uL (0.0-0.2); BASO % 0.2 % (0.0-1.0); EOS # 0.1 10^3/uL (0.0-0.50); EOS % 0.3 % (0.0-3.0); HEMATOCRIT 30.5 % (42.0-52.0); HEMOGLOBIN 9.6 g/dl (13.5-17.5); IMMATURE GRANULOCYTE % 1.4 % (0-3.0); LYMPH # 2.7 10^3/uL (1.5-4.5); LYMPH % 8.7 % (24.0-44.0); MEAN CORPUSCULAR HGB CONC 31.5 g/dl (32.0-36.5); MEAN CORPUSCULAR VOLUME 111.3 fl (80.0-96.0); MONO % 23.7 % (0.0-5.0); NEUTROPHILS # 20.1 10^3/uL (1.8-7.7); NEUTROPHILS % 65.7 % (36.0-66.0); PLATELET COUNT, AUTOMATED 429 10^3/uL (150-450); RED BLOOD COUNT 2.74 10^6/uL (4.30-6.10); RED CELL DISTRIBUTION WIDTH 16.6 % (11.5-14.5)
[2018-04-23 04:37] LABS: MONO # 7.3 10^3/uL (0.0-0.8)
[2018-04-23 04:43] LABS: POS COUNT POS FLAG; POSITIVE DIFF POS FLAG; WHITE BLOOD COUNT 30.6 10^3/uL (4.0-10.0)
[2018-04-23] MEDS: NS 1,000 ML IV ×2 (04:45→06:10)
[2018-04-23 04:50] LABS: INR 1.32; PROTHROMBIN TIME 16.6 SECONDS (12.1-14.4)
[2018-04-23 04:51] LABS: PARTIAL THROMBOPLASTIN TIME 27.6 SECONDS (25.4-37.6)
[2018-04-23] MEDS: ONDANSETRON 4MG/2ML VIAL (J2405) IV (05:43)
[2018-04-23 05:48] LABS: CK-MB VALUE MASS 4.1 NG/ML (<3.6); CPK CREATINE PHOSPHOKINASE 144 U/L (39-308); MB/CK RELATIVE INDEX 2.84 (< OR =4); TROPONIN I < 0.02 NG/ML (< 0.10)
[2018-04-23 07:50] LABS: HEMATOCRIT 25.9 % (42.0-52.0); HEMOGLOBIN 8.3 g/dl (13.5-17.5)
[2018-04-23 08:47] LABS: IMMEDIATE SPIN CROSSMATCH 1 2
[2018-04-23] MEDS: HYDROXYUREA 500 MG CAP PO ×2 (09:00→20:32)
[2018-04-23] MEDS ORDERED: BISACODYL 10 MG SUPP PR (12:30)
[2018-04-23] MEDS: ACETAMINOPHEN 500 MG TAB PO (13:37)
[2018-04-23] MEDS: SERTRALINE HCL 50 MG TAB PO (16:53)
[2018-04-23] MEDS: FERROUS SULFATE 325MG TAB PO (16:54)
[2018-04-23] MEDS: SENOKOT S TAB PO (16:54)
[2018-04-23 18:34] LABS: HEMATOCRIT 27.8 % (42.0-52.0); HEMOGLOBIN 9.2 g/dl (13.5-17.5); MEAN CORPUSCULAR HEMOGLOBIN 34.1 pg (27.0-33.0); MEAN CORPUSCULAR HGB CONC 33.1 g/dl (32.0-36.5); PLATELET COUNT, AUTOMATED 297 10^3/uL (150-450); RED CELL DISTRIBUTION WIDTH 20.1 % (11.5-14.5); WHITE BLOOD COUNT 25.6 10^3/uL (4.0-10.0)
[2018-04-23] MEDS: SIMVASTATIN 40 MG TAB PO (20:32)
[2018-04-23] MEDS: ASPIRIN 81 MG ENTERIC TAB PO (20:32)
[2018-04-24 05:45] LABS: HEMATOCRIT 26.3 % (42.0-52.0); HEMOGLOBIN 8.6 g/dl (13.5-17.5); MEAN CORPUSCULAR HEMOGLOBIN 33.2 pg (27.0-33.0); MEAN CORPUSCULAR HGB CONC 32.7 g/dl (32.0-36.5); MEAN CORPUSCULAR VOLUME 101.5 fl (80.0-96.0); PLATELET COUNT, AUTOMATED 270 10^3/uL (150-450); RED BLOOD COUNT 2.59 10^6/uL (4.30-6.10); RED CELL DISTRIBUTION WIDTH 20.3 % (11.5-14.5); WHITE BLOOD COUNT 22.8 10^3/uL (4.0-10.0)
[2018-04-24 05:56] LABS: ANION GAP 10 MEQ/L (8-16); BLOOD UREA NITROGEN 32 MG/DL (7-18); CALCIUM LEVEL 7.8 MG/DL (8.8-10.2); CARBON DIOXIDE LEVEL 22 MEQ/L (21-32); CHLORIDE LEVEL 110 MEQ/L (98-107); CREATININE FOR GFR 1.81 MG/DL (0.70-1.30); GLOMERULAR FILTRATION RATE 38.8 (>42); GLUCOSE, FASTING 111 MG/DL (70-100); POTASSIUM SERUM 4.2 MEQ/L (3.5-5.1); SODIUM LEVEL 142 MEQ/L (136-145)
[2018-04-24] MEDS: SERTRALINE HCL 50 MG TAB PO (08:49)
[2018-04-24] MEDS: FERROUS SULFATE 325MG TAB PO (08:49)
[2018-04-24] MEDS: HYDROXYUREA 500 MG CAP PO ×2 (08:49→20:39)
[2018-04-24] MEDS: SENOKOT S TAB PO (08:50)
[2018-04-24] MEDS: ACETAMINOPHEN 500 MG TAB PO ×3 (09:10→22:11)
[2018-04-24] MEDS ORDERED: SLF 3 ML SYR IV (12:00)
[2018-04-24] MEDS: SLF 3 ML SYR IV ×2 (14:21→22:12)
[2018-04-24] MEDS: ASPIRIN 81 MG ENTERIC TAB PO (20:39)
[2018-04-24] MEDS: SIMVASTATIN 40 MG TAB PO (20:40)
[2018-04-25 06:23] LABS: HEMATOCRIT 23.2 % (42.0-52.0); HEMOGLOBIN 7.7 g/dl (13.5-17.5); MEAN CORPUSCULAR HEMOGLOBIN 34.8 pg (27.0-33.0); MEAN CORPUSCULAR HGB CONC 33.2 g/dl (32.0-36.5); PLATELET COUNT, AUTOMATED 250 10^3/uL (150-450); RED BLOOD COUNT 2.21 10^6/uL (4.30-6.10); RED CELL DISTRIBUTION WIDTH 19.6 % (11.5-14.5); WHITE BLOOD COUNT 18.3 10^3/uL (4.0-10.0)
[2018-04-25 06:39] LABS: ANION GAP 6 MEQ/L (8-16); BLOOD UREA NITROGEN 27 MG/DL (7-18); CALCIUM LEVEL 7.9 MG/DL (8.8-10.2); CARBON DIOXIDE LEVEL 26 MEQ/L (21-32); CHLORIDE LEVEL 110 MEQ/L (98-107); CREATININE FOR GFR 1.83 MG/DL (0.70-1.30); GLOMERULAR FILTRATION RATE 38.3 (>42); GLUCOSE, FASTING 95 MG/DL (70-100); SODIUM LEVEL 142 MEQ/L (136-145)
[2018-04-25] MEDS: SLF 3 ML SYR IV ×3 (06:40→21:06)
[2018-04-25] MEDS: SENOKOT S TAB PO (09:12)
[2018-04-25] MEDS: HYDROXYUREA 500 MG CAP PO ×2 (09:13→21:05)
[2018-04-25] MEDS: ACETAMINOPHEN 500 MG TAB PO ×2 (09:13→21:11)
[2018-04-25] MEDS: FERROUS SULFATE 325MG TAB PO (09:13)
[2018-04-25] MEDS: SERTRALINE HCL 50 MG TAB PO (09:13)
[2018-04-25 13:42] LABS: IMMEDIATE SPIN CROSSMATCH 1 1
[2018-04-25] MEDS: SIMVASTATIN 40 MG TAB PO (21:05)
[2018-04-25] MEDS: ASPIRIN 81 MG ENTERIC TAB PO (21:05)
[2018-04-26] MEDS: SLF 3 ML SYR IV ×3 (05:05→21:11)
[2018-04-26 06:25] LABS: HEMATOCRIT 25.9 % (42.0-52.0); HEMOGLOBIN 8.7 g/dl (13.5-17.5); MEAN CORPUSCULAR HEMOGLOBIN 33.5 pg (27.0-33.0); MEAN CORPUSCULAR HGB CONC 33.6 g/dl (32.0-36.5); MEAN CORPUSCULAR VOLUME 99.6 fl (80.0-96.0); PLATELET COUNT, AUTOMATED 289 10^3/uL (150-450); WHITE BLOOD COUNT 20.4 10^3/uL (4.0-10.0)
[2018-04-26 06:45] LABS: ANION GAP 7 MEQ/L (8-16); BLOOD UREA NITROGEN 23 MG/DL (7-18); CALCIUM LEVEL 8.3 MG/DL (8.8-10.2); CARBON DIOXIDE LEVEL 26 MEQ/L (21-32); CHLORIDE LEVEL 110 MEQ/L (98-107); GLOMERULAR FILTRATION RATE 44.7 (>42); GLUCOSE, FASTING 92 MG/DL (70-100); POTASSIUM SERUM 3.9 MEQ/L (3.5-5.1); SODIUM LEVEL 143 MEQ/L (136-145)
[2018-04-26] MEDS: HYDROXYUREA 500 MG CAP PO ×2 (10:34→21:10)
[2018-04-26] MEDS: SENOKOT S TAB PO (10:34)
[2018-04-26] MEDS: SERTRALINE HCL 50 MG TAB PO (10:35)
[2018-04-26] MEDS: FERROUS SULFATE 325MG TAB PO (10:35)
[2018-04-26] MEDS: ASPIRIN 81 MG ENTERIC TAB PO (21:10)
[2018-04-26] MEDS: SIMVASTATIN 40 MG TAB PO (21:11)
[2018-04-26] MEDS: ACETAMINOPHEN 500 MG TAB PO (21:13)
[2018-04-27] MEDS: SLF 3 ML SYR IV ×3 (05:11→21:08)
[2018-04-27 06:08] LABS: MEAN CORPUSCULAR HEMOGLOBIN 33.3 pg (27.0-33.0); MEAN CORPUSCULAR HGB CONC 32.1 g/dl (32.0-36.5); MEAN CORPUSCULAR VOLUME 103.7 fl (80.0-96.0); PLATELET COUNT, AUTOMATED 344 10^3/uL (150-450); RED CELL DISTRIBUTION WIDTH 19.9 % (11.5-14.5); WHITE BLOOD COUNT 21.8 10^3/uL (4.0-10.0)
[2018-04-27 06:28] LABS: ANION GAP 6 MEQ/L (8-16); BLOOD UREA NITROGEN 20 MG/DL (7-18); CALCIUM LEVEL 8.5 MG/DL (8.8-10.2); CARBON DIOXIDE LEVEL 28 MEQ/L (21-32); CHLORIDE LEVEL 109 MEQ/L (98-107); CREATININE FOR GFR 1.58 MG/DL (0.70-1.30); GLOMERULAR FILTRATION RATE 45.4 (>42); GLUCOSE, FASTING 85 MG/DL (70-100); SODIUM LEVEL 143 MEQ/L (136-145)
[2018-04-27] MEDS: FERROUS SULFATE 325MG TAB PO (09:00)
[2018-04-27] MEDS ORDERED: PROPOFOL 200 MG/20 ML VIAL As Ordered (11:11)
[2018-04-27] MEDS ORDERED: LIDOCAINE 2% INJ 100 MG/5 ML SDV (FOR ANES.) As Ordered (11:11)
[2018-04-27] MEDS ORDERED: fentaNYL 100 MCG/2 ML INJECTION (J3010) As Ordered (11:12)
[2018-04-27] MEDS ORDERED: PHENYLephrine HCL 500 MCG/5 ML (100MCG/ML) SYRINGE (J2370) As Ordered (11:33)
[2018-04-27] MEDS: HYDROXYUREA 500 MG CAP PO ×2 (13:20→21:08)
[2018-04-27] MEDS: SENOKOT S TAB PO (13:20)
[2018-04-27] MEDS: SERTRALINE HCL 50 MG TAB PO (13:20)
[2018-04-27] MEDS: MIRALAX POWDER 255 GM BTL (POLYETHYLENE GLYCOL) PO ×2 (13:21→18:43)
[2018-04-27] MEDS: FLEET ENEMA PR (13:21)
[2018-04-27] MEDS: ASPIRIN 81 MG ENTERIC TAB PO (21:08)
[2018-04-27] MEDS: SIMVASTATIN 40 MG TAB PO (21:08)
[2018-04-28] MEDS: SLF 3 ML SYR IV ×3 (05:28→21:47)
[2018-04-28 05:32] LABS: HEMOGLOBIN 9.1 g/dl (13.5-17.5); MEAN CORPUSCULAR HGB CONC 32.5 g/dl (32.0-36.5); MEAN CORPUSCULAR VOLUME 104.5 fl (80.0-96.0); PLATELET COUNT, AUTOMATED 352 10^3/uL (150-450); RED BLOOD COUNT 2.68 10^6/uL (4.30-6.10); RED CELL DISTRIBUTION WIDTH 19.2 % (11.5-14.5); WHITE BLOOD COUNT 20.1 10^3/uL (4.0-10.0)
[2018-04-28 05:47] LABS: ANION GAP 8 MEQ/L (8-16); BLOOD UREA NITROGEN 15 MG/DL (7-18); CALCIUM LEVEL 8.1 MG/DL (8.8-10.2); CARBON DIOXIDE LEVEL 26 MEQ/L (21-32); CHLORIDE LEVEL 106 MEQ/L (98-107); CREATININE FOR GFR 1.52 MG/DL (0.70-1.30); GLOMERULAR FILTRATION RATE 47.5 (>42); GLUCOSE, FASTING 107 MG/DL (70-100); POTASSIUM SERUM 3.6 MEQ/L (3.5-5.1); SODIUM LEVEL 140 MEQ/L (136-145)
[2018-04-28] MEDS: MAGNESIUM CITRATE 300 ML BTL PO (08:20)
[2018-04-28] MEDS: SENOKOT S TAB PO (09:00)
[2018-04-28] MEDS: SERTRALINE HCL 50 MG TAB PO (09:00)
[2018-04-28] MEDS: HYDROXYUREA 500 MG CAP PO ×2 (09:00→21:46)
[2018-04-28] MEDS: SIMVASTATIN 40 MG TAB PO (21:46)
[2018-04-28] MEDS: ASPIRIN 81 MG ENTERIC TAB PO (21:46)
[2018-04-28] MEDS: ACETAMINOPHEN 500 MG TAB PO (21:51)
[2018-04-29] MEDS: SLF 3 ML SYR IV (05:34)
[2018-04-29 07:15] LABS: HEMATOCRIT 29.2 % (42.0-52.0); HEMOGLOBIN 9.5 g/dl (13.5-17.5); MEAN CORPUSCULAR HEMOGLOBIN 34.3 pg (27.0-33.0); MEAN CORPUSCULAR HGB CONC 32.5 g/dl (32.0-36.5); MEAN CORPUSCULAR VOLUME 105.4 fl (80.0-96.0); PLATELET COUNT, AUTOMATED 394 10^3/uL (150-450); RED BLOOD COUNT 2.77 10^6/uL (4.30-6.10); RED CELL DISTRIBUTION WIDTH 19.3 % (11.5-14.5); WHITE BLOOD COUNT 17.1 10^3/uL (4.0-10.0)
[2018-04-29 07:29] LABS: ANION GAP 7 MEQ/L (8-16); BLOOD UREA NITROGEN 21 MG/DL (7-18); CALCIUM LEVEL 8.6 MG/DL (8.8-10.2); CARBON DIOXIDE LEVEL 26 MEQ/L (21-32); CHLORIDE LEVEL 107 MEQ/L (98-107); CREATININE FOR GFR 1.91 MG/DL (0.70-1.30); GLOMERULAR FILTRATION RATE 36.5 (>42); GLUCOSE, FASTING 99 MG/DL (70-100); POTASSIUM SERUM 3.9 MEQ/L (3.5-5.1); SODIUM LEVEL 140 MEQ/L (136-145)
[2018-04-29] MEDS: HYDROXYUREA 500 MG CAP PO (09:39)
[2018-04-29] MEDS: SENOKOT S TAB PO (09:40)
[2018-04-29] MEDS: SERTRALINE HCL 50 MG TAB PO (09:40)
== END 2018-04-29 12:32 | DRG 812 ==
LOC: M MSPAV 04-24 14:36 → M ED 04:01 → M ED INP 09:17 → M PCU 11:12
PROC: 0DJ08ZZ Inspection of Upper Intestinal Tract, Via Natural or Artificial Opening Endoscopic (ICD-10-PCS; principal; 2018-04-27 11:00)
PROC: 30233N1 Transfusion of Nonautologous Red Blood Cells into Peripheral Vein, Percutaneous Approach (ICD-10-PCS; 2018-04-27 11:23)
PROC: 0DJD8ZZ Inspection of Lower Intestinal Tract, Via Natural or Artificial Opening Endoscopic (ICD-10-PCS; 2018-04-27 11:23)
DX: D62 Acute posthemorrhagic anemia (principal); D47.1 Chronic myeloproliferative disease; N17.9 Acute kidney failure, unspecified; S32.502A Unspecified fracture of left pubis, initial encounter for closed fracture; S01.01XA Laceration without foreign body of scalp, initial encounter; I12.9 Hypertensive chronic kidney disease with stage 1 through stage 4 chronic kidney disease, or unspecified chronic kidney disease; K21.9 Gastro-esophageal reflux disease without esophagitis; S70.02XA Contusion of left hip, initial encounter; F41.9 Anxiety disorder, unspecified; K57.90 Diverticulosis of intestine, part unspecified, without perforation or abscess without bleeding; R13.10 Dysphagia, unspecified; K64.8 Other hemorrhoids; I95.9 Hypotension, unspecified; G47.00 Insomnia, unspecified; F03.90 Unspecified dementia, unspecified severity, without behavioral disturbance, psychotic disturbance, mood disturbance, and anxiety; E78.5 Hyperlipidemia, unspecified; N18.3 Chronic kidney disease, stage 3 (moderate); I25.10 Atherosclerotic heart disease of native coronary artery without angina pectoris; N40.0 Benign prostatic hyperplasia without lower urinary tract symptoms; I87.2 Venous insufficiency (chronic) (peripheral); D47.3 Essential (hemorrhagic) thrombocythemia; W18.2XXA Fall in (into) shower or empty bathtub, initial encounter; I25.2 Old myocardial infarction; Y92.121 Bathroom in nursing home as the place of occurrence of the external cause; Z95.9 Presence of cardiac and vascular implant and graft, unspecified; Z96.642 Presence of left artificial hip joint; Y93.E1 Activity, personal bathing and showering

== ENCOUNTER → 2018-05-06 | Outpatient (REF) ==
[2018-05-06 12:33] LABS: HEMATOCRIT 33.8 % (42.0-52.0); HEMOGLOBIN 10.9 g/dl (13.5-17.5); MEAN CORPUSCULAR HEMOGLOBIN 34.3 pg (27.0-33.0); MEAN CORPUSCULAR HGB CONC 32.2 g/dl (32.0-36.5); MEAN CORPUSCULAR VOLUME 106.3 fl (80.0-96.0); PLATELET COUNT, AUTOMATED 440 10^3/uL (150-450); RED BLOOD COUNT 3.18 10^6/uL (4.30-6.10); RED CELL DISTRIBUTION WIDTH 17.9 % (11.5-14.5); WHITE BLOOD COUNT 19.6 10^3/uL (4.0-10.0)
== END ==
LOC: SKLAB3 11:56
DX: D64.9 Anemia, unspecified (principal)

== ENCOUNTER → 2018-05-09 | Outpatient (CLI) | payer MEDICARE, SELFPAY | LOC: M RAD 14:55 | DX: M19.011 Primary osteoarthritis, right shoulder (principal) | CPT/HCPCS: 73030 ==

== ENCOUNTER → 2018-05-09 | Outpatient (REF) | LOC: SKLAB3 14:15 | DX: M25.511 Pain in right shoulder (principal); W19.XXXA Unspecified fall, initial encounter ==

== ENCOUNTER → 2018-05-13 | Outpatient (REF) ==
[2018-05-13 09:33] LABS: ALBUMIN/GLOBULIN RATIO 0.95 (1.00-1.93); ALKALINE PHOSPHATASE 167 U/L (45-117); ALT/SGPT 20 U/L (12-78); ANION GAP 9 MEQ/L (8-16); AST/SGOT 25 U/L (7-37); BILIRUBIN,TOTAL 0.4 MG/DL (0.2-1.0); BLOOD UREA NITROGEN 30 MG/DL (7-18); CALCIUM LEVEL 8.8 MG/DL (8.8-10.2); CARBON DIOXIDE LEVEL 26 MEQ/L (21-32); CHLORIDE LEVEL 107 MEQ/L (98-107); CREATININE FOR GFR 1.89 MG/DL (0.70-1.30); GLOMERULAR FILTRATION RATE 36.9 (>42); GLUCOSE, FASTING 132 MG/DL (70-100); POTASSIUM SERUM 4.5 MEQ/L (3.5-5.1); SODIUM LEVEL 142 MEQ/L (136-145); TOTAL PROTEIN 8.2 GM/DL (6.4-8.2)
[2018-05-13 09:41] LABS: HEMOGLOBIN 11.6 g/dl (13.5-17.5); MEAN CORPUSCULAR HEMOGLOBIN 33.9 pg (27.0-33.0); MEAN CORPUSCULAR HGB CONC 31.4 g/dl (32.0-36.5); MEAN CORPUSCULAR VOLUME 108.2 fl (80.0-96.0); PLATELET COUNT, AUTOMATED 361 10^3/uL (150-450); RED BLOOD COUNT 3.42 10^6/uL (4.30-6.10); RED CELL DISTRIBUTION WIDTH 17.3 % (11.5-14.5); WHITE BLOOD COUNT 18.2 10^3/uL (4.0-10.0)
== END ==
LOC: SKLAB3 08:00
DX: I10 Essential (primary) hypertension (principal)

== ENCOUNTER → 2018-05-20 | Outpatient (REF) | payer MEDICARE, SELFPAY ==
[2018-05-20 09:51] LABS: HEMATOCRIT 37.7 % (42.0-52.0); HEMOGLOBIN 11.9 g/dl (13.5-17.5); MEAN CORPUSCULAR HEMOGLOBIN 33.9 pg (27.0-33.0); MEAN CORPUSCULAR HGB CONC 31.6 g/dl (32.0-36.5); MEAN CORPUSCULAR VOLUME 107.4 fl (80.0-96.0); PLATELET COUNT, AUTOMATED 366 10^3/uL (150-450); RED BLOOD COUNT 3.51 10^6/uL (4.30-6.10); RED CELL DISTRIBUTION WIDTH 17.2 % (11.5-14.5); WHITE BLOOD COUNT 16.9 10^3/uL (4.0-10.0)
== END ==
LOC: SKLAB3 07:13
DX: K92.2 Gastrointestinal hemorrhage, unspecified (principal)
CPT/HCPCS: 85027

== ENCOUNTER → 2018-05-28 | Outpatient (REF) ==
[2018-05-28 08:23] LABS: HEMATOCRIT 34.8 % (42.0-52.0); HEMOGLOBIN 11.2 g/dl (13.5-17.5); MEAN CORPUSCULAR HEMOGLOBIN 34.5 pg (27.0-33.0); MEAN CORPUSCULAR HGB CONC 32.2 g/dl (32.0-36.5); MEAN CORPUSCULAR VOLUME 107.1 fl (80.0-96.0); PLATELET COUNT, AUTOMATED 302 10^3/uL (150-450); RED BLOOD COUNT 3.25 10^6/uL (4.30-6.10); RED CELL DISTRIBUTION WIDTH 16.3 % (11.5-14.5); WHITE BLOOD COUNT 11.5 10^3/uL (4.0-10.0)
== END ==
LOC: SKLAB3 08:00
DX: D64.9 Anemia, unspecified (principal); I10 Essential (primary) hypertension; E78.5 Hyperlipidemia, unspecified

== ENCOUNTER → 2018-06-21 | Outpatient (REF) | payer MEDICARE ==
[2018-06-21 16:42] LABS: ANION GAP 8 MEQ/L (8-16); BLOOD UREA NITROGEN 28 MG/DL (7-18); CALCIUM LEVEL 8.9 MG/DL (8.8-10.2); CARBON DIOXIDE LEVEL 24 MEQ/L (21-32); CHLORIDE LEVEL 105 MEQ/L (98-107); CREATININE FOR GFR 1.53 MG/DL (0.70-1.30); GLOMERULAR FILTRATION RATE 47.1 (>42); GLUCOSE, FASTING 119 MG/DL (70-100); POTASSIUM SERUM 4.4 MEQ/L (3.5-5.1); SODIUM LEVEL 137 MEQ/L (136-145)
== END ==
LOC: SKLAB3 14:07
DX: R41.82 Altered mental status, unspecified (principal)
CPT/HCPCS: 36415

== ENCOUNTER → 2018-07-01 | Outpatient (REF) | payer MEDICARE ==
[2018-07-01 08:53] LABS: BASO # 0.1 10^3/uL (0.0-0.2); BASO % 0.4 % (0.0-1.0); EOS # 0.1 10^3/uL (0.0-0.50); EOS % 0.7 % (0.0-3.0); HEMATOCRIT 39.2 % (42.0-52.0); HEMOGLOBIN 12.6 g/dl (13.5-17.5); IMMATURE GRANULOCYTE % 0.4 % (0-3.0); LYMPH # 1.9 10^3/uL (1.5-4.5); LYMPH % 16.3 % (24.0-44.0); MEAN CORPUSCULAR HEMOGLOBIN 34.1 pg (27.0-33.0); MEAN CORPUSCULAR HGB CONC 32.1 g/dl (32.0-36.5); MEAN CORPUSCULAR VOLUME 106.2 fl (80.0-96.0); MONO % 29.6 % (0.0-5.0); NEUTROPHILS # 6.2 10^3/uL (1.8-7.7); NEUTROPHILS % 52.6 % (36.0-66.0); PLATELET COUNT, AUTOMATED 274 10^3/uL (150-450); RED BLOOD COUNT 3.69 10^6/uL (4.30-6.10); RED CELL DISTRIBUTION WIDTH 14.6 % (11.5-14.5); WHITE BLOOD COUNT 11.8 10^3/uL (4.0-10.0)
[2018-07-01 09:14] LABS: MONO # 3.5 10^3/uL (0.0-0.8); POSITIVE DIFF POS FLAG
== END ==
LOC: SKLAB3 07:00
DX: D64.9 Anemia, unspecified (principal)
CPT/HCPCS: 36415

== ENCOUNTER → 2018-07-29 | Outpatient (REF) | payer MEDICARE ==
[2018-07-29 20:08] LABS: APPEARANCE, URINE CLEAR (CLEAR); BACTERIA, URINE AUTO NEGATIVE (NEGATIVE); BILIRUBIN, URINE AUTO NEGATIVE (NEGATIVE); BLOOD, URINE BLOOD NEGATIVE (NEGATIVE); COLOR, URINE YELLOW (YELLOW); GLUCOSE, URINE (UA) AUTO NEGATIVE (NEGATIVE); KETONE, URINE AUTO NEGATIVE (NEGATIVE); LEUKOCYTE ESTERASE, URINE AUTO NEGATIVE (NEGATIVE); NITRITE, URINE AUTO NEGATIVE (NEGATIVE); PROTEIN, URINE AUTO NEGATIVE (NEGATIVE); RBC, URINE AUTO 2 /HPF (0-3); SQUAMOUS EPITHELIAL CELL UR AU 0 /HPF (0-6); UROBILINOGEN, URINE AUTO 0.2 mg/dL (0.0-2.0); WBC, URINE AUTO 1 /HPF (0-3)
[2018-07-29 20:16] LABS: HEMOGLOBIN 12.9 g/dl (13.5-17.5); MEAN CORPUSCULAR HEMOGLOBIN 33.9 pg (27.0-33.0); MEAN CORPUSCULAR HGB CONC 31.5 g/dl (32.0-36.5); MEAN CORPUSCULAR VOLUME 107.9 fl (80.0-96.0); PLATELET COUNT, AUTOMATED 263 10^3/uL (150-450); RED CELL DISTRIBUTION WIDTH 13.7 % (11.5-14.5); WHITE BLOOD COUNT 22.7 10^3/uL (4.0-10.0)
[2018-07-29 21:03] LABS: ANION GAP 8 MEQ/L (8-16); BLOOD UREA NITROGEN 22 MG/DL (7-18); CALCIUM LEVEL 8.6 MG/DL (8.8-10.2); CARBON DIOXIDE LEVEL 23 MEQ/L (21-32); CHLORIDE LEVEL 104 MEQ/L (98-107); GLOMERULAR FILTRATION RATE 44.7 (>42); GLUCOSE, FASTING 106 MG/DL (70-100); POTASSIUM SERUM 4.2 MEQ/L (3.5-5.1); SODIUM LEVEL 135 MEQ/L (136-145)
== END ==
LOC: SKLAB3 18:10
DX: R41.82 Altered mental status, unspecified (principal)
CPT/HCPCS: 80048

== ENCOUNTER 2018-08-14 02:08 | Inpatient (IN) | payer MEDICARE ==
[2018-08-14 02:50] LABS: BASO # 0.1 10^3/uL (0.0-0.2); BASO % 0.2 % (0.0-1.0); EOS % 0.1 % (0.0-3.0); HEMATOCRIT 41.1 % (42.0-52.0); HEMOGLOBIN 13.1 g/dl (13.5-17.5); LYMPH # 1.3 10^3/uL (1.5-4.5); MEAN CORPUSCULAR HEMOGLOBIN 33.1 pg (27.0-33.0); MEAN CORPUSCULAR HGB CONC 31.9 g/dl (32.0-36.5); MEAN CORPUSCULAR VOLUME 103.8 fl (80.0-96.0); MONO % 28.5 % (0.0-5.0); NEUTROPHILS # 20.4 10^3/uL (1.8-7.7); NEUTROPHILS % 65.2 % (36.0-66.0); PLATELET COUNT, AUTOMATED 375 10^3/uL (150-450); RED BLOOD COUNT 3.96 10^6/uL (4.30-6.10); RED CELL DISTRIBUTION WIDTH 13.2 % (11.5-14.5)
[2018-08-14] MEDS ORDERED: MORPHINE 4 MG/ML 1ML VIAL/SYRINGE (J2270) As Ordered ×2 (02:59→12:38)
[2018-08-14] MEDS: MORPHINE 4 MG/ML 1ML VIAL/SYRINGE (J2270) IV ×6 (03:01→20:17)
[2018-08-14 03:18] LABS: KETONE, URINE AUTO RFX NEGATIVE (NEGATIVE); LEUKOCYTE ESTERASE UR AUTO RFX NEGATIVE (NEGATIVE); MUCUS, URINE RFX SMALL (NEGATIVE); NITRITE, URINE AUTO RFX NEGATIVE (NEGATIVE); RBC, URINE AUTO RFX 1 /HPF (0-3); SPECIFIC GRAVITY UR AUTO RFX 1.009 (1.002-1.035); SQUAM EPITHELIAL CELL UR AURFX 0 /HPF (0-6); TRANSITIONAL EPITHELIAL AU RFX <1 /HPF; WBC, URINE AUTO RFX 0 /HPF (0-3)
[2018-08-14 03:22] LABS: POS COUNT POS FLAG; POSITIVE DIFF POS FLAG
[2018-08-14 03:23] LABS: WHITE BLOOD COUNT 31.4 10^3/uL (4.0-10.0)
[2018-08-14] MEDS: NS 1,000 ML IV ×2 (04:00→11:02)
[2018-08-14] MEDS: ADACEL/BOOSTRIX VACCINE (DIPHTH/PERTUSS/ACELL/TETANUS)0.5ML SYR (90715) IM (04:00)
[2018-08-14] MEDS: ACETAMINOPHEN TAB 650MG DOSE (2X325MG) PO ×2 (04:05→20:17)
[2018-08-14 04:28] LABS: INR 1.25; PROTHROMBIN TIME 15.9 SECONDS (12.1-14.4)
[2018-08-14 04:29] LABS: PARTIAL THROMBOPLASTIN TIME 28.8 SECONDS (25.4-37.6)
[2018-08-14 05:04] LABS: ALBUMIN 3.9 GM/DL (3.2-5.2); ALKALINE PHOSPHATASE 155 U/L (45-117); ALT/SGPT 31 U/L (12-78); ANION GAP 8 MEQ/L (8-16); AST/SGOT 59 U/L (7-37); BILIRUBIN,DIRECT < 0.1 MG/DL (0.0-0.2); BILIRUBIN,TOTAL 0.6 MG/DL (0.2-1.0); BLOOD UREA NITROGEN 23 MG/DL (7-18); CALCIUM LEVEL 8.7 MG/DL (8.8-10.2); CARBON DIOXIDE LEVEL 23 MEQ/L (21-32); CHLORIDE LEVEL 105 MEQ/L (98-107); CPK CREATINE PHOSPHOKINASE 615 U/L (39-308); CREATININE FOR GFR 1.66 MG/DL (0.70-1.30); GLOMERULAR FILTRATION RATE 42.9 (>42); GLUCOSE, FASTING 141 MG/DL (70-100); POTASSIUM SERUM 4.8 MEQ/L (3.5-5.1); SODIUM LEVEL 136 MEQ/L (136-145); TOTAL PROTEIN 7.8 GM/DL (6.4-8.2); TROPONIN I < 0.02 NG/ML (< 0.10)
[2018-08-14] MEDS ORDERED: BISACODYL 5 MG TAB PO (06:30)
[2018-08-14] MEDS ORDERED: BISACODYL 10 MG SUPP PR (06:30)
[2018-08-14 06:58] LABS: FREE THYROXINE INDEX 2.1 % (1.4-3.8); T UPTAKE 30 % (33-40)
[2018-08-14 07:33] LABS: LACTIC ACID SEPSIS PROTOCOL 1.6 MMOL/L (0.4-2.0)
[2018-08-14 07:59] LABS: CPK CREATINE PHOSPHOKINASE 779 U/L (39-308); MB/CK RELATIVE INDEX 4.25 (< OR =4); TROPONIN I 0.02 NG/ML (< 0.10)
[2018-08-14 08:30] LABS: C REACTIVE PROTEIN QUANTITATIV 1.74 MG/DL (0.00-0.30)
[2018-08-14] MEDS: ASCORBIC ACID 500 MG TAB PO (09:00)
[2018-08-14] MEDS: HEPARIN SOD (PORCINE) 5000 UNITS/ML VIAL SC ×3 (09:05→20:18)
[2018-08-14] MEDS: HYDROXYUREA 500 MG CAP PO (09:10)
[2018-08-14] MEDS: SERTRALINE HCL 25 MG TABLET PO (09:10)
[2018-08-14] MEDS: SENOKOT S TAB PO ×2 (09:10→20:18)
[2018-08-14 09:24] LABS: REASON FOR REVIEW WBC/LEUKEMIA/BLAST; SLIDE REVIEW Report; SOURCE PERIPHERAL SMEAR
[2018-08-14 09:42] LABS: ERYTHROCYTE SEDIMENTATION RATE 23 mm/hr (0-20)
[2018-08-14] MEDS: FERROUS SULFATE 325MG TAB PO (11:53)
[2018-08-14] MEDS ORDERED: ONDANSETRON 4MG/2ML VIAL (J2405) As Ordered (12:43)
[2018-08-14] MEDS ORDERED: BUPIVACAINE/DEXTROSE 0.75% 2 ML AMP As Ordered (12:43)
[2018-08-14] MEDS ORDERED: dexameTHASONE 4 MG/ML 1ML VIAL (J1100) As Ordered ×2 (12:43→12:51)
[2018-08-14] MEDS ORDERED: fentaNYL 100 MCG/2 ML INJECTION (J3010) As Ordered (12:47)
[2018-08-14] MEDS ORDERED: MIDAZOLAM INJ 2 MG/2 ML VIAL (J2250) As Ordered (12:47)
[2018-08-14] MEDS ORDERED: PROPOFOL 200 MG/20 ML VIAL As Ordered ×3 (12:48)
[2018-08-14] MEDS ORDERED: KETAMINE HCL 200 MG/20 ML VIAL As Ordered (13:10)
[2018-08-14] MEDS: ceFAZolin 2 GM/D5W 50 ML IV BAG (J0690 PER 500MG) As Ordered (13:39)
[2018-08-14] MEDS ORDERED: PHENYLEPHRINE INJ 10MG/ML VIAL (J2370) As Ordered ×2 (14:00→15:29)
[2018-08-14] MEDS ORDERED: LIDOCAINE 2% INJ 100 MG/5 ML SDV (FOR ANES.) As Ordered (14:29)
[2018-08-14] MEDS: ceFAZolin 1GM INJ (J0690 PER 500MG) As Ordered (14:58)
[2018-08-14] MEDS: PHENYLEPHRINE HCL INJ 10 MG in D5W 99 ML IV (15:28)
[2018-08-14] MEDS ORDERED: ONDANSETRON 4MG/2ML VIAL (J2405) IV (15:45)
[2018-08-14] MEDS ORDERED: PERCOCET 5MG/325MG TAB PO (15:45)
[2018-08-14] MEDS ORDERED: METOCLOPRAMIDE INJ 10MG/2ML VIAL (J2765) IV (15:45)
[2018-08-14] MEDS ORDERED: fentaNYL 100 MCG/2 ML INJECTION (J3010) IV (15:45)
[2018-08-14 16:37] LABS: CPK CREATINE PHOSPHOKINASE 670 U/L (39-308); MB/CK RELATIVE INDEX 2.39 (< OR =4); TROPONIN I 0.02 NG/ML (< 0.10)
[2018-08-14] MEDS: ACETAMINOPH W/CODEINE #3 TAB UD PO ×2 (18:25→23:10)
[2018-08-14] MEDS: NS 500 ML IV (18:29)
[2018-08-15] MEDS: MORPHINE 4 MG/ML 1ML VIAL/SYRINGE (J2270) IV ×6 (00:07→23:54)
[2018-08-15] MEDS: NS 1,000 ML IV ×3 (04:14→21:08)
[2018-08-15 05:16] LABS: HEMATOCRIT 33.6 % (42.0-52.0); MEAN CORPUSCULAR VOLUME 106.7 fl (80.0-96.0); PLATELET COUNT, AUTOMATED 359 10^3/uL (150-450); RED BLOOD COUNT 3.15 10^6/uL (4.30-6.10); RED CELL DISTRIBUTION WIDTH 13.6 % (11.5-14.5)
[2018-08-15 05:18] LABS: HEMOGLOBIN 10.4 g/dl (13.5-17.5); POS COUNT POS FLAG
[2018-08-15 05:41] LABS: ANION GAP 10 MEQ/L (8-16); BLOOD UREA NITROGEN 25 MG/DL (7-18); CARBON DIOXIDE LEVEL 21 MEQ/L (21-32); CHLORIDE LEVEL 109 MEQ/L (98-107); CPK CREATINE PHOSPHOKINASE 610 U/L (39-308); CREATININE FOR GFR 1.75 MG/DL (0.70-1.30); GLOMERULAR FILTRATION RATE 40.3 (>42); GLUCOSE, FASTING 128 MG/DL (70-100); MB/CK RELATIVE INDEX 1.38 (< OR =4); POTASSIUM SERUM 4.1 MEQ/L (3.5-5.1); SODIUM LEVEL 140 MEQ/L (136-145); TROPONIN I < 0.02 NG/ML (< 0.10)
[2018-08-15] MEDS: HEPARIN SOD (PORCINE) 5000 UNITS/ML VIAL SC (06:02)
[2018-08-15] MEDS: HYDROXYUREA 500 MG CAP PO ×2 (09:21→20:52)
[2018-08-15] MEDS: ASCORBIC ACID 500 MG TAB PO (09:21)
[2018-08-15] MEDS: SENOKOT S TAB PO ×2 (09:21→20:52)
[2018-08-15] MEDS: SERTRALINE HCL 25 MG TABLET PO (09:21)
[2018-08-15] MEDS: ACETAMINOPH W/CODEINE #3 TAB UD PO (09:26)
[2018-08-15] MEDS: FERROUS SULFATE 325MG TAB PO (14:13)
[2018-08-15] MEDS: RIVAROXABAN 10 MG TAB (XARELTO) PO (18:44)
[2018-08-16] MEDS: ACETAMINOPH W/CODEINE #3 TAB UD PO (02:19)
[2018-08-16] MEDS: MORPHINE 4 MG/ML 1ML VIAL/SYRINGE (J2270) IV ×3 (04:58→20:20)
[2018-08-16 05:08] LABS: BASO % 0.1 % (0.0-1.0); EOS % 0.1 % (0.0-3.0); HEMATOCRIT 25.6 % (42.0-52.0); LYMPH # 1.6 10^3/uL (1.5-4.5); LYMPH % 4.8 % (24.0-44.0); MEAN CORPUSCULAR HEMOGLOBIN 33.2 pg (27.0-33.0); MEAN CORPUSCULAR HGB CONC 30.9 g/dl (32.0-36.5); MEAN CORPUSCULAR VOLUME 107.6 fl (80.0-96.0); MONO % 35.2 % (0.0-5.0); NEUTROPHILS # 19.6 10^3/uL (1.8-7.7); NEUTROPHILS % 58.8 % (36.0-66.0); PLATELET COUNT, AUTOMATED 308 10^3/uL (150-450); RED BLOOD COUNT 2.38 10^6/uL (4.30-6.10); RED CELL DISTRIBUTION WIDTH 13.7 % (11.5-14.5)
[2018-08-16 05:24] LABS: HEMOGLOBIN 7.9 g/dl (13.5-17.5); MONO # 11.7 10^3/uL (0.0-0.8); POS COUNT POS FLAG; POSITIVE DIFF POS FLAG; WHITE BLOOD COUNT 33.3 10^3/uL (4.0-10.0)
[2018-08-16 05:59] LABS: COLLAGEN EPINEPHRINE 92 SECONDS (74-162)
[2018-08-16 07:20] LABS: ALBUMIN 2.6 GM/DL (3.2-5.2); ALBUMIN/GLOBULIN RATIO 0.76 (1.00-1.93); ALKALINE PHOSPHATASE 123 U/L (45-117); ALT/SGPT 11 U/L (12-78); ANION GAP 10 MEQ/L (8-16); AST/SGOT 35 U/L (7-37); BILIRUBIN,DIRECT 0.1 MG/DL (0.0-0.2); BILIRUBIN,TOTAL 0.3 MG/DL (0.2-1.0); BLOOD UREA NITROGEN 41 MG/DL (7-18); CALCIUM LEVEL 7.8 MG/DL (8.8-10.2); CARBON DIOXIDE LEVEL 20 MEQ/L (21-32); CHLORIDE LEVEL 111 MEQ/L (98-107); CREATININE FOR GFR 2.25 MG/DL (0.70-1.30); GLOMERULAR FILTRATION RATE 30.2 (>42); GLUCOSE, FASTING 91 MG/DL (70-100); POTASSIUM SERUM 4.3 MEQ/L (3.5-5.1); SODIUM LEVEL 141 MEQ/L (136-145); URIC ACID 7.6 MG/DL (3.5-7.2)
[2018-08-16] MEDS: NS 1,000 ML IV ×2 (09:04→22:21)
[2018-08-16 09:59] LABS: FOLATE 9.3 NG/ML; VITAMIN B12 LEVEL 556 PG/ML
[2018-08-16] MEDS: QUEtiapine FUMARATE 25 MG TAB PO ×3 (10:33→21:00)
[2018-08-16] MEDS: SERTRALINE HCL 25 MG TABLET PO (10:33)
[2018-08-16] MEDS: SENOKOT S TAB PO ×3 (10:34→21:00)
[2018-08-16] MEDS: ASCORBIC ACID 500 MG TAB PO (10:34)
[2018-08-16] MEDS: HYDROXYUREA 500 MG CAP PO ×3 (10:34→21:00)
[2018-08-16 12:07] LABS: IMMEDIATE SPIN CROSSMATCH 1 1
[2018-08-16 12:35] LABS: AMORPHOUS SEDIMENT SMALL (NEGATIVE); APPEARANCE, URINE CLOUDY (CLEAR); BACTERIA, URINE AUTO NEGATIVE (NEGATIVE); BILIRUBIN, URINE AUTO NEGATIVE (NEGATIVE); BLOOD, URINE BLOOD NEGATIVE (NEGATIVE); COLOR, URINE YELLOW (YELLOW); GLUCOSE, URINE (UA) AUTO NEGATIVE (NEGATIVE); KETONE, URINE AUTO NEGATIVE (NEGATIVE); LEUKOCYTE ESTERASE, URINE AUTO NEGATIVE (NEGATIVE); MUCUS, URINE SMALL (NEGATIVE); NITRITE, URINE AUTO NEGATIVE (NEGATIVE); PROTEIN, URINE AUTO 1+ mg/dL (NEGATIVE); RBC, URINE AUTO 2 /HPF (0-3); SPECIFIC GRAVITY URINE AUTO 1.017 (1.002-1.035); SQUAMOUS EPITHELIAL CELL UR AU 0 /HPF (0-6); UROBILINOGEN, URINE AUTO 0.2 mg/dL (0.0-2.0); WBC, URINE AUTO 7 /HPF (0-3)
[2018-08-16 12:48] LABS: CHLORIDE,RANDOM URINE 38 MEQ/L; POTASSIUM RANDOM URINE 53.7 MEQ/L; SODIUM,RANDOM URINE 19 MEQ/L; TOTAL PROTEIN,RANDOM URINE 118.4 MG/DL (0.0-12.0)
[2018-08-16 13:01] LABS: OSMOLALITY URINE 525 MOSM/KG (500-800)
[2018-08-16] MEDS: FERROUS SULFATE 325MG TAB PO (13:20)
[2018-08-16] MEDS: ACETAMINOPHEN TAB 650MG DOSE (2X325MG) PO (13:21)
[2018-08-16] MEDS: RIVAROXABAN 10 MG TAB (XARELTO) PO (17:19)
[2018-08-16] MEDS: LORazepam 2 MG/ML VIAL (J2060) IV (20:46)
[2018-08-17 04:59] LABS: BASO % 0.1 % (0.0-1.0); EOS # 0.1 10^3/uL (0.0-0.50); EOS % 0.4 % (0.0-3.0); HEMATOCRIT 24.5 % (42.0-52.0); HEMOGLOBIN 7.6 g/dl (13.5-17.5); IMMATURE GRANULOCYTE % 1.3 % (0-3.0); LYMPH # 1.2 10^3/uL (1.5-4.5); LYMPH % 5.6 % (24.0-44.0); MEAN CORPUSCULAR HEMOGLOBIN 32.9 pg (27.0-33.0); MEAN CORPUSCULAR VOLUME 106.1 fl (80.0-96.0); MONO % 21.1 % (0.0-5.0); NEUTROPHILS # 15.9 10^3/uL (1.8-7.7); NEUTROPHILS % 71.5 % (36.0-66.0); PLATELET COUNT, AUTOMATED 280 10^3/uL (150-450); RED BLOOD COUNT 2.31 10^6/uL (4.30-6.10); RED CELL DISTRIBUTION WIDTH 16.1 % (11.5-14.5); WHITE BLOOD COUNT 22.3 10^3/uL (4.0-10.0)
[2018-08-17 05:20] LABS: ALBUMIN 2.4 GM/DL (3.2-5.2); ALBUMIN/GLOBULIN RATIO 0.69 (1.00-1.93); ALKALINE PHOSPHATASE 95 U/L (45-117); ALT/SGPT 9 U/L (12-78); ANION GAP 8 MEQ/L (8-16); AST/SGOT 32 U/L (7-37); BILIRUBIN,DIRECT 0.1 MG/DL (0.0-0.2); BILIRUBIN,TOTAL 0.5 MG/DL (0.2-1.0); BLOOD UREA NITROGEN 39 MG/DL (7-18); CALCIUM LEVEL 7.7 MG/DL (8.8-10.2); CARBON DIOXIDE LEVEL 22 MEQ/L (21-32); CHLORIDE LEVEL 117 MEQ/L (98-107); CREATININE FOR GFR 1.57 MG/DL (0.70-1.30); GLOMERULAR FILTRATION RATE 45.7 (>42); GLUCOSE, FASTING 89 MG/DL (70-100); MAGNESIUM LEVEL 2.1 MG/DL (1.8-2.4); POTASSIUM SERUM 3.9 MEQ/L (3.5-5.1); SODIUM LEVEL 147 MEQ/L (136-145); TOTAL PROTEIN 5.9 GM/DL (6.4-8.2)
[2018-08-17 05:27] LABS: MONO # 4.7 10^3/uL (0.0-0.8); POSITIVE DIFF POS FLAG
[2018-08-17] MEDS: ACETAMINOPH W/CODEINE #3 TAB UD PO ×2 (06:27→18:26)
[2018-08-17] MEDS ORDERED: HYDROXYUREA 500 MG CAP PO (08:00)
[2018-08-17] MEDS: SENOKOT S TAB PO ×2 (09:26→21:01)
[2018-08-17] MEDS: SERTRALINE HCL 25 MG TABLET PO (09:26)
[2018-08-17] MEDS: ASCORBIC ACID 500 MG TAB PO (09:26)
[2018-08-17] MEDS: HYDROXYUREA 500 MG CAP PO ×2 (09:26→21:01)
[2018-08-17 10:05] LABS: IMMEDIATE SPIN CROSSMATCH 1 1
[2018-08-17] MEDS: FERROUS SULFATE 325MG TAB PO (12:59)
[2018-08-17] MEDS: QUEtiapine FUMARATE 50 MG TAB PO ×2 (12:59→21:01)
[2018-08-17 14:23] LABS: HEMATOCRIT 27.6 % (42.0-52.0); HEMOGLOBIN 8.7 g/dl (13.5-17.5)
[2018-08-17] MEDS: ACETAMINOPHEN TAB 650MG DOSE (2X325MG) PO (15:21)
[2018-08-17] MEDS: RIVAROXABAN 10 MG TAB (XARELTO) PO (17:24)
[2018-08-18 05:56] LABS: BASO % 0.1 % (0.0-1.0); EOS # 0.2 10^3/uL (0.0-0.50); EOS % 0.8 % (0.0-3.0); HEMATOCRIT 26.8 % (42.0-52.0); HEMOGLOBIN 8.3 g/dl (13.5-17.5); IMMATURE GRANULOCYTE % 1.5 % (0-3.0); LYMPH # 1.4 10^3/uL (1.5-4.5); LYMPH % 6.6 % (24.0-44.0); MEAN CORPUSCULAR HEMOGLOBIN 31.8 pg (27.0-33.0); MEAN CORPUSCULAR VOLUME 102.7 fl (80.0-96.0); MONO % 20.6 % (0.0-5.0); NEUTROPHILS # 15.1 10^3/uL (1.8-7.7); NEUTROPHILS % 70.4 % (36.0-66.0); PLATELET COUNT, AUTOMATED 301 10^3/uL (150-450); RED BLOOD COUNT 2.61 10^6/uL (4.30-6.10); WHITE BLOOD COUNT 21.5 10^3/uL (4.0-10.0)
[2018-08-18 06:00] LABS: MONO # 4.4 10^3/uL (0.0-0.8); POSITIVE DIFF POS FLAG
[2018-08-18 06:27] LABS: ALBUMIN 2.6 GM/DL (3.2-5.2); ALKALINE PHOSPHATASE 112 U/L (45-117); ALT/SGPT 10 U/L (12-78); ANION GAP 9 MEQ/L (8-16); AST/SGOT 36 U/L (7-37); BILIRUBIN,DIRECT 0.1 MG/DL (0.0-0.2); BILIRUBIN,TOTAL 0.6 MG/DL (0.2-1.0); BLOOD UREA NITROGEN 40 MG/DL (7-18); CALCIUM LEVEL 8.2 MG/DL (8.8-10.2); CARBON DIOXIDE LEVEL 21 MEQ/L (21-32); CHLORIDE LEVEL 114 MEQ/L (98-107); CREATININE FOR GFR 1.42 MG/DL (0.70-1.30); GLOMERULAR FILTRATION RATE 51.3 (>42); GLUCOSE, FASTING 102 MG/DL (70-100); MAGNESIUM LEVEL 2.3 MG/DL (1.8-2.4); POTASSIUM SERUM 3.8 MEQ/L (3.5-5.1); SODIUM LEVEL 144 MEQ/L (136-145); TOTAL PROTEIN 6.3 GM/DL (6.4-8.2)
[2018-08-18] MEDS: HYDROXYUREA 500 MG CAP PO ×2 (09:22→21:11)
[2018-08-18] MEDS: SENOKOT S TAB PO ×2 (09:22→21:11)
[2018-08-18] MEDS: QUEtiapine FUMARATE 50 MG TAB PO ×2 (09:22→21:11)
[2018-08-18] MEDS: ASCORBIC ACID 500 MG TAB PO (09:22)
[2018-08-18] MEDS: SERTRALINE HCL 25 MG TABLET PO (09:22)
[2018-08-18] MEDS: ACETAMINOPH W/CODEINE #3 TAB UD PO ×3 (09:23→22:44)
[2018-08-18] MEDS: FERROUS SULFATE 325MG TAB PO (12:18)
[2018-08-18] MEDS: RIVAROXABAN 10 MG TAB (XARELTO) PO (17:31)
[2018-08-19 07:07] LABS: BASO % 0.1 % (0.0-1.0); EOS # 0.1 10^3/uL (0.0-0.50); HEMOGLOBIN 8.4 g/dl (13.5-17.5); IMMATURE GRANULOCYTE % 1.3 % (0-3.0); LYMPH # 1.1 10^3/uL (1.5-4.5); LYMPH % 7.7 % (24.0-44.0); MEAN CORPUSCULAR HEMOGLOBIN 32.2 pg (27.0-33.0); MEAN CORPUSCULAR HGB CONC 32.3 g/dl (32.0-36.5); MEAN CORPUSCULAR VOLUME 99.6 fl (80.0-96.0); MONO % 14.1 % (0.0-5.0); NEUTROPHILS % 75.8 % (36.0-66.0); PLATELET COUNT, AUTOMATED 299 10^3/uL (150-450); RED BLOOD COUNT 2.61 10^6/uL (4.30-6.10); WHITE BLOOD COUNT 14.6 10^3/uL (4.0-10.0)
[2018-08-19 07:22] LABS: MONO # 2.1 10^3/uL (0.0-0.8); POSITIVE DIFF POS FLAG
[2018-08-19 07:31] LABS: ALBUMIN 2.6 GM/DL (3.2-5.2); ALBUMIN/GLOBULIN RATIO 0.74 (1.00-1.93); ALKALINE PHOSPHATASE 127 U/L (45-117); ALT/SGPT 12 U/L (12-78); ANION GAP 6 MEQ/L (8-16); AST/SGOT 38 U/L (7-37); BILIRUBIN,DIRECT 0.2 MG/DL (0.0-0.2); BILIRUBIN,TOTAL 0.7 MG/DL (0.2-1.0); BLOOD UREA NITROGEN 35 MG/DL (7-18); CALCIUM LEVEL 8.1 MG/DL (8.8-10.2); CARBON DIOXIDE LEVEL 24 MEQ/L (21-32); CHLORIDE LEVEL 112 MEQ/L (98-107); CREATININE FOR GFR 1.18 MG/DL (0.70-1.30); GLOMERULAR FILTRATION RATE > 60.0 (>42); GLUCOSE, FASTING 104 MG/DL (70-100); MAGNESIUM LEVEL 2.2 MG/DL (1.8-2.4); POTASSIUM SERUM 3.9 MEQ/L (3.5-5.1); SODIUM LEVEL 142 MEQ/L (136-145); TOTAL PROTEIN 6.1 GM/DL (6.4-8.2)
[2018-08-19] MEDS: SENOKOT S TAB PO ×2 (08:15→21:00)
[2018-08-19] MEDS: ASCORBIC ACID 500 MG TAB PO (08:15)
[2018-08-19] MEDS: HYDROXYUREA 500 MG CAP PO (08:16)
[2018-08-19] MEDS: QUEtiapine FUMARATE 50 MG TAB PO ×2 (08:16→21:30)
[2018-08-19] MEDS: SERTRALINE HCL 25 MG TABLET PO (08:16)
[2018-08-19] MEDS: ACETAMINOPHEN 500 MG TAB PO ×3 (13:20→21:54)
[2018-08-19] MEDS: FERROUS SULFATE 325MG TAB PO (13:21)
[2018-08-19 16:21] LABS: HEMATOCRIT 28.6 % (42.0-52.0); MEAN CORPUSCULAR HGB CONC 31.5 g/dl (32.0-36.5); MEAN CORPUSCULAR VOLUME 101.8 fl (80.0-96.0); PLATELET COUNT, AUTOMATED 329 10^3/uL (150-450); RED BLOOD COUNT 2.81 10^6/uL (4.30-6.10); RED CELL DISTRIBUTION WIDTH 16.5 % (11.5-14.5); WHITE BLOOD COUNT 16.3 10^3/uL (4.0-10.0)
[2018-08-19] MEDS: traMADol 50 MG TAB PO (18:28)
[2018-08-20] MEDS: ONDANSETRON 4MG/2ML VIAL (J2405) IV (05:10)
[2018-08-20] MEDS: ACETAMINOPHEN 500 MG TAB PO (06:15)
[2018-08-20 06:33] LABS: BASO % 0.1 % (0.0-1.0); EOS # 0.1 10^3/uL (0.0-0.50); EOS % 0.6 % (0.0-3.0); HEMATOCRIT 29.3 % (42.0-52.0); HEMOGLOBIN 9.4 g/dl (13.5-17.5); LYMPH # 0.8 10^3/uL (1.5-4.5); LYMPH % 4.7 % (24.0-44.0); MEAN CORPUSCULAR HEMOGLOBIN 31.8 pg (27.0-33.0); MEAN CORPUSCULAR HGB CONC 32.1 g/dl (32.0-36.5); MONO % 21.7 % (0.0-5.0); NEUTROPHILS % 70.9 % (36.0-66.0); PLATELET COUNT, AUTOMATED 366 10^3/uL (150-450); RED BLOOD COUNT 2.96 10^6/uL (4.30-6.10); RED CELL DISTRIBUTION WIDTH 15.9 % (11.5-14.5)
[2018-08-20 06:43] LABS: INR 1.39; PROTHROMBIN TIME 17.3 SECONDS (12.1-14.4)
[2018-08-20 06:44] LABS: FIBRINOGEN 667 MG/DL (221-452)
[2018-08-20 06:53] LABS: MONO # 3.7 10^3/uL (0.0-0.8); POSITIVE DIFF POS FLAG
[2018-08-20] MEDS ORDERED: PILL CRUSHER/CUTTER 1 EACH XX (07:00)
[2018-08-20 07:04] LABS: ALBUMIN 3.1 GM/DL (3.2-5.2); ALBUMIN/GLOBULIN RATIO 0.89 (1.00-1.93); ALKALINE PHOSPHATASE 151 U/L (45-117); ALT/SGPT 16 U/L (12-78); ANION GAP 10 MEQ/L (8-16); AST/SGOT 53 U/L (7-37); BILIRUBIN,DIRECT 0.3 MG/DL (0.0-0.2); BILIRUBIN,TOTAL 1.3 MG/DL (0.2-1.0); BLOOD UREA NITROGEN 27 MG/DL (7-18); CALCIUM LEVEL 8.6 MG/DL (8.8-10.2); CARBON DIOXIDE LEVEL 24 MEQ/L (21-32); CHLORIDE LEVEL 107 MEQ/L (98-107); CREATININE FOR GFR 1.01 MG/DL (0.70-1.30); GLOMERULAR FILTRATION RATE > 60.0 (>42); GLUCOSE, FASTING 105 MG/DL (70-100); SODIUM LEVEL 141 MEQ/L (136-145); TOTAL PROTEIN 6.6 GM/DL (6.4-8.2)
[2018-08-20] MEDS: BISACODYL 10 MG SUPP PR (09:00)
[2018-08-20] MEDS: BISACODYL ENEMA 10 MG/30 ML PR (09:00)
[2018-08-20] MEDS: ASCORBIC ACID 500 MG TAB PO (09:44)
[2018-08-20] MEDS: SENOKOT S TAB PO (09:45)
[2018-08-20] MEDS: HYDROXYUREA 500 MG CAP PO (09:46)
[2018-08-20] MEDS: SERTRALINE HCL 25 MG TABLET PO (09:46)
[2018-08-20] MEDS: QUEtiapine FUMARATE 50 MG TAB PO (09:47)
[2018-08-20] MEDS ORDERED: RIVAROXABAN 10 MG TAB (XARELTO) PO (18:00)
[2018-08-21 14:13] LABS: F8 ACTIVITY FOR F8 PANEL 198 % (57-163); F8 ACTIVITY vWB FOR F8 PANEL 504 % (50-200); F8 ANTIGEN FOR F8 PANEL 386 % (50-200); INTERPRETATION: Note (.)
[2018-08-21 14:13] LABS: VITAMIN B6,PYRIDOXAL PHOSPHATE 3.7 ug/L (5.3-46.7)
[2018-08-23 14:50] LABS: FLOW CYTOMETRY FOR SEND OUT See Pathology Report
[2018-08-23 14:51] LABS: BCR/ABL MONITOR CML PATH S/O See Separate Report
== END 2018-08-20 11:05 | DRG 956 ==
LOC: M PCU 08-17 17:52 → M MS5PR 08-18 14:19 → M ED 02:08 → M MS5PR 08-19 12:20 → M ED INP 06:25 → M ICU 08:38
PROC: 0QS704Z Reposition Left Upper Femur with Internal Fixation Device, Open Approach (ICD-10-PCS; principal; 2018-08-14 12:00)
PROC: 30233N1 Transfusion of Nonautologous Red Blood Cells into Peripheral Vein, Percutaneous Approach (ICD-10-PCS; 2018-08-14 13:06)
DX: S72.145A Nondisplaced intertrochanteric fracture of left femur, initial encounter for closed fracture (principal); T79.6XXA Traumatic ischemia of muscle, initial encounter; D47.1 Chronic myeloproliferative disease; D69.3 Immune thrombocytopenic purpura; F03.91 Unspecified dementia, unspecified severity, with behavioral disturbance; S22.22XA Fracture of body of sternum, initial encounter for closed fracture; S32.039A Unspecified fracture of third lumbar vertebra, initial encounter for closed fracture; S32.049A Unspecified fracture of fourth lumbar vertebra, initial encounter for closed fracture; S22.010A Wedge compression fracture of first thoracic vertebra, initial encounter for closed fracture; S22.020A Wedge compression fracture of second thoracic vertebra, initial encounter for closed fracture; N17.9 Acute kidney failure, unspecified; Z66 Do not resuscitate; S01.01XA Laceration without foreign body of scalp, initial encounter; K21.9 Gastro-esophageal reflux disease without esophagitis; E03.9 Hypothyroidism, unspecified; R13.10 Dysphagia, unspecified; R94.6 Abnormal results of thyroid function studies; F41.9 Anxiety disorder, unspecified; G47.00 Insomnia, unspecified; E78.5 Hyperlipidemia, unspecified; I11.9 Hypertensive heart disease without heart failure; R41.0 Disorientation, unspecified; D64.9 Anemia, unspecified; N18.3 Chronic kidney disease, stage 3 (moderate); I25.10 Atherosclerotic heart disease of native coronary artery without angina pectoris; N40.0 Benign prostatic hyperplasia without lower urinary tract symptoms; I87.2 Venous insufficiency (chronic) (peripheral); W01.0XXA Fall on same level from slipping, tripping and stumbling without subsequent striking against object, initial encounter; Y92.129 Unspecified place in nursing home as the place of occurrence of the external cause; Y93.01 Activity, walking, marching and hiking; I25.2 Old myocardial infarction; Z79.899 Other long term (current) drug therapy; Z88.5 Allergy status to narcotic agent

== ENCOUNTER → 2018-08-14 | Outpatient (REF) | payer MEDICARE ==
[~2018-08-14] MED LIST changes: +ACET1TAB55 PO; +AFRI0.052; +ASCO25TA PO; +ASCO500T PO; +ASPI1TAB PO; +ASPI81CH PO; +ASPI81TA85 PO; +ASPI81TAEC PO; +ATOR40TA75; +ATOR40TA75 PO; +CARV3.12 PO; +DULC10SU2 PR; +ENEMENE16 PR; +ENEMENE6 PR; +ENSULIQ64 PO; +FERR1TAB8 PO; +FERR325T3 PO; +HYDR500C3; +HYDR500C3 PO; -HYDROXYUREA 500 MG CAP PO; +IRON28TA PO; +LISI-542; +LISI-542 PO; +LOVE1INJ SC; +METO1TAB33; +METO1TAB33 PO; +MILK12002 PO; +MULTCAP11 PO; +NASA0.0517; +QUET5TAB PO; +ROCE1INJ6 IJ; +ROLLMIS2 XX; +SALI0.6528 NARES; +SENN-23 PO; +SENN8.6T54 PO; +SENN8.6T7 PO; +SERT25TA PO; +SERT50TA PO; +SIMV40TA2 PO; +SODIGEL; +TRAM50TA2 PO; +TYLE325T5 PO; +ULTR50TA8 PO; +VITA100067 PO; +VITA1CAP2 PO; +VITA400C97 PO; +VITA500C24 PO; +VITA500T PO; +VITAD1000T PO; +VITMTA PO; +XARE10TA PO; +ZOCO40TA PO
== END ==
LOC: SKLAB3 10:42
PROVIDERS: ATTEND Internal Medicine
DX: D64.9 Anemia, unspecified (principal); Z53.9 Procedure and treatment not carried out, unspecified reason

== ENCOUNTER 2018-09-13 11:33 | Inpatient (IN) | payer MEDICARE ==
[2018-09-13] MEDS: NS 500 ML IV (13:17)
[2018-09-13 13:25] LABS: HEMATOCRIT 34.4 % (42.0-52.0); HEMOGLOBIN 10.5 g/dl (13.5-17.5); MEAN CORPUSCULAR HEMOGLOBIN 30.4 pg (27.0-33.0); MEAN CORPUSCULAR HGB CONC 30.5 g/dl (32.0-36.5); MEAN CORPUSCULAR VOLUME 99.7 fl (80.0-96.0); PLATELET COUNT, AUTOMATED 483 10^3/uL (150-450); RED BLOOD COUNT 3.45 10^6/uL (4.30-6.10); RED CELL DISTRIBUTION WIDTH 15.7 % (11.5-14.5)
[2018-09-13 13:30] LABS: ADD MANUAL DIFFER YES; DIFF SLIDE NUMBER 213; POS COUNT POS FLAG; POSITIVE DIFF POS FLAG; WHITE BLOOD COUNT 31.6 10^3/uL (4.0-10.0)
[2018-09-13 13:50] LABS: ANION GAP 9 MEQ/L (8-16); BLOOD UREA NITROGEN 36 MG/DL (7-18); CALCIUM LEVEL 9.1 MG/DL (8.8-10.2); CARBON DIOXIDE LEVEL 26 MEQ/L (21-32); CHLORIDE LEVEL 101 MEQ/L (98-107); CREATININE FOR GFR 1.84 MG/DL (0.70-1.30); GLUCOSE, FASTING 93 MG/DL (70-100); POTASSIUM SERUM 4.8 MEQ/L (3.5-5.1); SODIUM LEVEL 136 MEQ/L (136-145)
[2018-09-13 13:53] LABS: ATYPICAL LYMPH 4 % (0-5); EOSINOPHILS 2 % (0-5); LYMPHOCYTES 2 % (16-52); MONOCYTES 32 % (0-8); NEUTROPHILS 60 % (35-75)
[2018-09-13 13:54] LABS: PLATELET ESTIMATE INCREASED (NORMAL)
[2018-09-13 13:55] LABS: SMUDGE CELLS 1+
[2018-09-13 13:55] LABS: LACTIC ACID SEPSIS PROTOCOL 1.1 MMOL/L (0.4-2.0)
[2018-09-13 13:57] LABS: HYPOCHROMASIA 1+
[2018-09-13 14:24] LABS: ERYTHROCYTE SEDIMENTATION RATE 67 mm/hr (0-20)
[2018-09-13] MEDS: NS 1,000 ML IV ×2 (15:03→18:25)
[2018-09-13] MEDS: ceFAZolin SOD 1 GM in D5W MINI-BAG PLUS 50 ML IV (15:03)
[2018-09-13] MEDS ORDERED: ONDANSETRON 4 MG TAB (S0181) PO (15:45)
[2018-09-13] MEDS ORDERED: BISACODYL 10 MG SUPP PR (15:45)
[2018-09-13] MEDS: PANTOPRAZOLE 40MG TAB (PROTONIX) PO (18:25)
[2018-09-13] MEDS: cefTRIAXone SOD 2 GM in D5W MINI-BAG PLUS 50 ML IV (18:26)
[2018-09-13] MEDS: QUEtiapine FUMARATE 50 MG TAB PO (20:01)
[2018-09-13] MEDS: VANCOMYCIN HCL 1,000 MG, VIAL MATE ADAPTER 1 EACH in D5W 250 ML IV (20:01)
[2018-09-14] MEDS: NS 1,000 ML IV ×3 (05:20→22:00)
[2018-09-14 06:39] LABS: HEMATOCRIT 33.7 % (42.0-52.0); HEMOGLOBIN 10.4 g/dl (13.5-17.5); MEAN CORPUSCULAR HEMOGLOBIN 30.5 pg (27.0-33.0); MEAN CORPUSCULAR HGB CONC 30.9 g/dl (32.0-36.5); MEAN CORPUSCULAR VOLUME 98.8 fl (80.0-96.0); PLATELET COUNT, AUTOMATED 461 10^3/uL (150-450); RED BLOOD COUNT 3.41 10^6/uL (4.30-6.10); RED CELL DISTRIBUTION WIDTH 15.6 % (11.5-14.5); WHITE BLOOD COUNT 22.9 10^3/uL (4.0-10.0)
[2018-09-14 07:06] LABS: ANION GAP 8 MEQ/L (8-16); BLOOD UREA NITROGEN 27 MG/DL (7-18); CALCIUM LEVEL 8.6 MG/DL (8.8-10.2); CARBON DIOXIDE LEVEL 24 MEQ/L (21-32); CHLORIDE LEVEL 107 MEQ/L (98-107); CREATININE FOR GFR 1.58 MG/DL (0.70-1.30); GLOMERULAR FILTRATION RATE 45.3 (>42); GLUCOSE, FASTING 85 MG/DL (70-100); MAGNESIUM LEVEL 2.3 MG/DL (1.8-2.4); SODIUM LEVEL 139 MEQ/L (136-145)
[2018-09-14] MEDS: VANCOMYCIN HCL 1,000 MG, VIAL MATE ADAPTER 1 EACH in D5W 250 ML IV ×2 (09:23→20:07)
[2018-09-14] MEDS: HYDROXYUREA 500 MG CAP PO (09:23)
[2018-09-14] MEDS: FERROUS SULFATE 325MG TAB PO (09:23)
[2018-09-14] MEDS: SENOKOT S TAB PO (09:23)
[2018-09-14] MEDS: ASCORBIC ACID 500 MG TAB PO (09:23)
[2018-09-14] MEDS: PANTOPRAZOLE 40MG TAB (PROTONIX) PO (09:23)
[2018-09-14] MEDS: VITAMIN D 1,000 INTERNATIONAL UNITS TABLET PO (09:23)
[2018-09-14] MEDS: SERTRALINE HCL 25 MG TABLET PO (09:23)
[2018-09-14] MEDS: ASPIRIN 81 MG ENTERIC TAB PO (09:23)
[2018-09-14] MEDS: QUEtiapine FUMARATE 50 MG TAB PO ×2 (16:03→20:07)
[2018-09-14] MEDS: ACETAMINOPHEN 500 MG TAB PO (16:03)
[2018-09-14] MEDS: cefTRIAXone SOD 2 GM in D5W MINI-BAG PLUS 50 ML IV (18:10)
[2018-09-15] MEDS: NS 1,000 ML IV (04:09)
[2018-09-15 06:24] LABS: HEMATOCRIT 34.8 % (42.0-52.0); HEMOGLOBIN 10.3 g/dl (13.5-17.5); MEAN CORPUSCULAR HEMOGLOBIN 31.5 pg (27.0-33.0); MEAN CORPUSCULAR HGB CONC 29.6 g/dl (32.0-36.5); MEAN CORPUSCULAR VOLUME 106.4 fl (80.0-96.0); PLATELET COUNT, AUTOMATED 370 10^3/uL (150-450); RED BLOOD COUNT 3.27 10^6/uL (4.30-6.10); RED CELL DISTRIBUTION WIDTH 15.4 % (11.5-14.5); WHITE BLOOD COUNT 20.7 10^3/uL (4.0-10.0)
[2018-09-15 06:31] LABS: ANION GAP 8 MEQ/L (8-16); BLOOD UREA NITROGEN 24 MG/DL (7-18); C REACTIVE PROTEIN QUANTITATIV 5.57 MG/DL (0.00-0.30); CALCIUM LEVEL 8.8 MG/DL (8.8-10.2); CARBON DIOXIDE LEVEL 22 MEQ/L (21-32); CHLORIDE LEVEL 111 MEQ/L (98-107); CREATININE FOR GFR 1.26 MG/DL (0.70-1.30); GLOMERULAR FILTRATION RATE 58.8 (>42); GLUCOSE, FASTING 91 MG/DL (70-100); POTASSIUM SERUM 3.8 MEQ/L (3.5-5.1); SODIUM LEVEL 141 MEQ/L (136-145)
[2018-09-15] MEDS ORDERED: PILL CRUSHER/CUTTER 1 EACH XX (06:45)
[2018-09-15 07:32] LABS: VANCOMYCIN LEVEL TROUGH 20.2 UG/ML (10.0-20.0)
[2018-09-15] MEDS: QUEtiapine FUMARATE 50 MG TAB PO ×2 (08:31→21:26)
[2018-09-15] MEDS: HYDROXYUREA 500 MG CAP PO (08:31)
[2018-09-15] MEDS: SENOKOT S TAB PO (08:31)
[2018-09-15] MEDS: ASCORBIC ACID 500 MG TAB PO (08:31)
[2018-09-15] MEDS: ASPIRIN 81 MG ENTERIC TAB PO (08:31)
[2018-09-15] MEDS: SERTRALINE HCL 25 MG TABLET PO (08:31)
[2018-09-15] MEDS: ACETAMINOPHEN 500 MG TAB PO (08:31)
[2018-09-15] MEDS: FERROUS SULFATE 325MG TAB PO (08:31)
[2018-09-15] MEDS: PANTOPRAZOLE 40MG TAB (PROTONIX) PO (08:32)
[2018-09-15] MEDS: VITAMIN D 1,000 INTERNATIONAL UNITS TABLET PO (08:32)
[2018-09-15] MEDS: ENOXAPARIN 40 MG/0.4 ML SYRINGE (J1650) SC (10:07)
[2018-09-15] MEDS: MAGNESIUM CITRATE 300 ML BTL PO (10:07)
[2018-09-15] MEDS: cefTRIAXone SOD 2 GM in D5W MINI-BAG PLUS 50 ML IV (17:16)
[2018-09-15] MEDS: ACETAMINOPHEN TAB 650MG DOSE (2X325MG) PO (21:26)
[2018-09-16 06:19] LABS: HEMATOCRIT 34.5 % (42.0-52.0); HEMOGLOBIN 10.5 g/dl (13.5-17.5); MEAN CORPUSCULAR HGB CONC 30.4 g/dl (32.0-36.5); MEAN CORPUSCULAR VOLUME 98.6 fl (80.0-96.0); PLATELET COUNT, AUTOMATED 492 10^3/uL (150-450); RED CELL DISTRIBUTION WIDTH 15.2 % (11.5-14.5); WHITE BLOOD COUNT 19.1 10^3/uL (4.0-10.0)
[2018-09-16 06:39] LABS: ANION GAP 6 MEQ/L (8-16); BLOOD UREA NITROGEN 17 MG/DL (7-18); C REACTIVE PROTEIN QUANTITATIV 3.58 MG/DL (0.00-0.30); CARBON DIOXIDE LEVEL 26 MEQ/L (21-32); CHLORIDE LEVEL 109 MEQ/L (98-107); CREATININE FOR GFR 1.28 MG/DL (0.70-1.30); GLOMERULAR FILTRATION RATE 57.7 (>42); GLUCOSE, FASTING 87 MG/DL (70-100); MAGNESIUM LEVEL 2.1 MG/DL (1.8-2.4); SODIUM LEVEL 141 MEQ/L (136-145)
[2018-09-16] MEDS: FERROUS SULFATE 325MG TAB PO (08:41)
[2018-09-16] MEDS: ASCORBIC ACID 500 MG TAB PO (08:41)
[2018-09-16] MEDS: SENOKOT S TAB PO (08:41)
[2018-09-16] MEDS: ASPIRIN 81 MG ENTERIC TAB PO (08:42)
[2018-09-16] MEDS: ENOXAPARIN 40 MG/0.4 ML SYRINGE (J1650) SC (08:42)
[2018-09-16] MEDS: HYDROXYUREA 500 MG CAP PO (08:42)
[2018-09-16] MEDS: QUEtiapine FUMARATE 50 MG TAB PO ×2 (08:42→20:32)
[2018-09-16] MEDS: PANTOPRAZOLE 40MG TAB (PROTONIX) PO (08:42)
[2018-09-16] MEDS: SERTRALINE HCL 25 MG TABLET PO (08:42)
[2018-09-16] MEDS: VITAMIN D 1,000 INTERNATIONAL UNITS TABLET PO (08:42)
[2018-09-16] MEDS: cefTRIAXone SOD 2 GM in D5W MINI-BAG PLUS 50 ML IV (17:23)
[2018-09-16] MEDS: ACETAMINOPHEN TAB 650MG DOSE (2X325MG) PO (20:32)
[2018-09-17 06:16] LABS: HEMOGLOBIN 10.3 g/dl (13.5-17.5); MEAN CORPUSCULAR HEMOGLOBIN 30.6 pg (27.0-33.0); MEAN CORPUSCULAR HGB CONC 31.2 g/dl (32.0-36.5); MEAN CORPUSCULAR VOLUME 97.9 fl (80.0-96.0); PLATELET COUNT, AUTOMATED 495 10^3/uL (150-450); RED BLOOD COUNT 3.37 10^6/uL (4.30-6.10); RED CELL DISTRIBUTION WIDTH 15.3 % (11.5-14.5)
[2018-09-17 06:41] LABS: ANION GAP 6 MEQ/L (8-16); BLOOD UREA NITROGEN 20 MG/DL (7-18); C REACTIVE PROTEIN QUANTITATIV 2.39 MG/DL (0.00-0.30); CALCIUM LEVEL 8.9 MG/DL (8.8-10.2); CARBON DIOXIDE LEVEL 26 MEQ/L (21-32); CHLORIDE LEVEL 108 MEQ/L (98-107); CREATININE FOR GFR 1.32 MG/DL (0.70-1.30); GLOMERULAR FILTRATION RATE 55.7 (>42); GLUCOSE, FASTING 87 MG/DL (70-100); MAGNESIUM LEVEL 2.1 MG/DL (1.8-2.4); POTASSIUM SERUM 4.2 MEQ/L (3.5-5.1); SODIUM LEVEL 140 MEQ/L (136-145)
[2018-09-17] MEDS: HYDROXYUREA 500 MG CAP PO (08:51)
[2018-09-17] MEDS: ASCORBIC ACID 500 MG TAB PO (08:51)
[2018-09-17] MEDS: ENOXAPARIN 40 MG/0.4 ML SYRINGE (J1650) SC (08:51)
[2018-09-17] MEDS: QUEtiapine FUMARATE 50 MG TAB PO ×2 (08:51→20:26)
[2018-09-17] MEDS: FERROUS SULFATE 325MG TAB PO (08:51)
[2018-09-17] MEDS: SENOKOT S TAB PO (08:51)
[2018-09-17] MEDS: VITAMIN D 1,000 INTERNATIONAL UNITS TABLET PO (08:51)
[2018-09-17] MEDS: ASPIRIN 81 MG ENTERIC TAB PO (08:51)
[2018-09-17] MEDS: PANTOPRAZOLE 40MG TAB (PROTONIX) PO (08:51)
[2018-09-17] MEDS: SERTRALINE HCL 25 MG TABLET PO (08:51)
[2018-09-17] MEDS: ACETAMINOPHEN 500 MG TAB PO (10:06)
[2018-09-17] MEDS: cefTRIAXone SOD 2 GM in D5W MINI-BAG PLUS 50 ML IV (17:05)
[2018-09-17] MEDS: ACETAMINOPHEN TAB 650MG DOSE (2X325MG) PO (20:26)
[2018-09-18 06:36] LABS: HEMATOCRIT 35.9 % (42.0-52.0); HEMOGLOBIN 10.8 g/dl (13.5-17.5); MEAN CORPUSCULAR HGB CONC 30.1 g/dl (32.0-36.5); MEAN CORPUSCULAR VOLUME 99.7 fl (80.0-96.0); PLATELET COUNT, AUTOMATED 495 10^3/uL (150-450); RED CELL DISTRIBUTION WIDTH 15.3 % (11.5-14.5); WHITE BLOOD COUNT 19.2 10^3/uL (4.0-10.0)
[2018-09-18 06:49] LABS: ANION GAP 6 MEQ/L (8-16); BLOOD UREA NITROGEN 21 MG/DL (7-18); C REACTIVE PROTEIN QUANTITATIV 1.58 MG/DL (0.00-0.30); CALCIUM LEVEL 8.7 MG/DL (8.8-10.2); CARBON DIOXIDE LEVEL 28 MEQ/L (21-32); CHLORIDE LEVEL 106 MEQ/L (98-107); CREATININE FOR GFR 1.32 MG/DL (0.70-1.30); GLOMERULAR FILTRATION RATE 55.7 (>42); GLUCOSE, FASTING 88 MG/DL (70-100); MAGNESIUM LEVEL 2.2 MG/DL (1.8-2.4); POTASSIUM SERUM 3.7 MEQ/L (3.5-5.1); SODIUM LEVEL 140 MEQ/L (136-145)
[2018-09-18] MEDS: HYDROXYUREA 500 MG CAP PO (09:05)
[2018-09-18] MEDS: SENOKOT S TAB PO (09:05)
[2018-09-18] MEDS: PANTOPRAZOLE 40MG TAB (PROTONIX) PO (09:05)
[2018-09-18] MEDS: FERROUS SULFATE 325MG TAB PO (09:05)
[2018-09-18] MEDS: SERTRALINE HCL 25 MG TABLET PO (09:05)
[2018-09-18] MEDS: QUEtiapine FUMARATE 50 MG TAB PO ×2 (09:05→20:16)
[2018-09-18] MEDS: ASPIRIN 81 MG ENTERIC TAB PO (09:05)
[2018-09-18] MEDS: ASCORBIC ACID 500 MG TAB PO (09:05)
[2018-09-18] MEDS: VITAMIN D 1,000 INTERNATIONAL UNITS TABLET PO (09:05)
[2018-09-18] MEDS: ENOXAPARIN 40 MG/0.4 ML SYRINGE (J1650) SC (09:06)
[2018-09-18] MEDS: ACETAMINOPHEN 500 MG TAB PO ×2 (10:25→18:24)
[2018-09-18] MEDS ORDERED: LIDOCAINE 1% MDV 20ML VIAL As Ordered (17:11)
[2018-09-18] MEDS: cefTRIAXone SOD 2 GM in D5W MINI-BAG PLUS 50 ML IV (18:23)
[2018-09-18] MEDS ORDERED: SODIUM CHLORIDE 0.9% INJ 10 ML SYR IV (18:30)
[2018-09-19] MEDS: SODIUM CHLORIDE 0.9% INJ 10 ML SYR IV (05:11)
[2018-09-19 05:22] LABS: HEMATOCRIT 33.3 % (42.0-52.0); HEMOGLOBIN 10.1 g/dl (13.5-17.5); MEAN CORPUSCULAR HEMOGLOBIN 30.2 pg (27.0-33.0); MEAN CORPUSCULAR HGB CONC 30.3 g/dl (32.0-36.5); MEAN CORPUSCULAR VOLUME 99.7 fl (80.0-96.0); PLATELET COUNT, AUTOMATED 444 10^3/uL (150-450); RED BLOOD COUNT 3.34 10^6/uL (4.30-6.10); RED CELL DISTRIBUTION WIDTH 15.5 % (11.5-14.5); WHITE BLOOD COUNT 17.7 10^3/uL (4.0-10.0)
[2018-09-19 05:37] LABS: ANION GAP 6 MEQ/L (8-16); BLOOD UREA NITROGEN 21 MG/DL (7-18); C REACTIVE PROTEIN QUANTITATIV 1.33 MG/DL (0.00-0.30); CALCIUM LEVEL 8.4 MG/DL (8.8-10.2); CARBON DIOXIDE LEVEL 27 MEQ/L (21-32); CHLORIDE LEVEL 107 MEQ/L (98-107); CREATININE FOR GFR 1.52 MG/DL (0.70-1.30); GLOMERULAR FILTRATION RATE 47.3 (>42); GLUCOSE, FASTING 92 MG/DL (70-100); MAGNESIUM LEVEL 2.1 MG/DL (1.8-2.4); POTASSIUM SERUM 4.1 MEQ/L (3.5-5.1); SODIUM LEVEL 140 MEQ/L (136-145)
[2018-09-19] MEDS: ENOXAPARIN 40 MG/0.4 ML SYRINGE (J1650) SC (10:19)
[2018-09-19] MEDS: QUEtiapine FUMARATE 50 MG TAB PO (10:20)
[2018-09-19] MEDS: ASCORBIC ACID 500 MG TAB PO (10:20)
[2018-09-19] MEDS: VITAMIN D 1,000 INTERNATIONAL UNITS TABLET PO (10:20)
[2018-09-19] MEDS: FERROUS SULFATE 325MG TAB PO (10:20)
[2018-09-19] MEDS: HYDROXYUREA 500 MG CAP PO (10:20)
[2018-09-19] MEDS: PANTOPRAZOLE 40MG TAB (PROTONIX) PO (10:21)
[2018-09-19] MEDS: ASPIRIN 81 MG ENTERIC TAB PO (10:21)
[2018-09-19] MEDS: ACETAMINOPHEN 500 MG TAB PO (10:21)
[2018-09-19] MEDS: SERTRALINE HCL 25 MG TABLET PO (10:21)
[2018-09-19] MEDS: SENOKOT S TAB PO (10:21)
== END 2018-09-19 13:15 | DRG 863 ==
LOC: M MS5PR 09-14 09:39 → M ED 11:33 → M ED INP 15:21 → M MS5PR 17:10
PROC: 02HV33Z Insertion of Infusion Device into Superior Vena Cava, Percutaneous Approach (ICD-10-PCS; principal; 2018-09-18)
DX: T81.42XA Infection following a procedure, deep incisional surgical site, initial encounter (principal); D47.1 Chronic myeloproliferative disease; L03.116 Cellulitis of left lower limb; M25.452 Effusion, left hip; I12.9 Hypertensive chronic kidney disease with stage 1 through stage 4 chronic kidney disease, or unspecified chronic kidney disease; I25.10 Atherosclerotic heart disease of native coronary artery without angina pectoris; I25.2 Old myocardial infarction; F03.90 Unspecified dementia, unspecified severity, without behavioral disturbance, psychotic disturbance, mood disturbance, and anxiety; K21.9 Gastro-esophageal reflux disease without esophagitis; D64.9 Anemia, unspecified; E78.5 Hyperlipidemia, unspecified; I73.9 Peripheral vascular disease, unspecified; N18.3 Chronic kidney disease, stage 3 (moderate); N40.0 Benign prostatic hyperplasia without lower urinary tract symptoms; R29.6 Repeated falls; R47.02 Dysphasia; D72.829 Elevated white blood cell count, unspecified; Z79.899 Other long term (current) drug therapy; Y83.1 Surgical operation with implant of artificial internal device as the cause of abnormal reaction of the patient, or of later complication, without mention of misadventure at the time of the procedure

== ENCOUNTER → 2018-09-13 | Outpatient (REF) | payer MEDICARE | LOC: SKLAB3 10:38 | PROVIDERS: ATTEND Nurse Practitioner Family | DX: L03.116 Cellulitis of left lower limb (principal) ==

== ENCOUNTER → 2018-10-01 | Outpatient (REF) | payer MEDICARE ==
[~2018-10-01] MED LIST changes: -ENEMENE16 PR; +ENEMENE4 PR; +MILK120011 PO; -MILK12002 PO
[2018-10-01 13:08] LABS: HEMATOCRIT 37.3 % (42.0-52.0); HEMOGLOBIN 11.6 g/dl (13.5-17.5); MEAN CORPUSCULAR HEMOGLOBIN 30.4 pg (27.0-33.0); MEAN CORPUSCULAR HGB CONC 31.1 g/dl (32.0-36.5); MEAN CORPUSCULAR VOLUME 97.9 fl (80.0-96.0); PLATELET COUNT, AUTOMATED 538 10^3/uL (150-450); RED BLOOD COUNT 3.81 10^6/uL (4.30-6.10); WHITE BLOOD COUNT 19.7 10^3/uL (4.0-10.0)
[2018-10-01 13:29] LABS: ALBUMIN 3.5 GM/DL (3.2-5.2); BILIRUBIN,TOTAL 0.2 MG/DL (0.2-1.0); C REACTIVE PROTEIN QUANTITATIV 0.33 MG/DL (0.00-0.30); CREATININE FOR GFR 1.34 MG/DL (0.70-1.30); GLOMERULAR FILTRATION RATE 54.7 (>42); TOTAL PROTEIN 8.1 GM/DL (6.4-8.2)
[2018-10-01 13:44] LABS: ERYTHROCYTE SEDIMENTATION RATE 44 mm/hr (0-20)
== END ==
LOC: SKLAB3 11:41
PROVIDERS: ATTEND Internal Medicine
DX: L03.90 Cellulitis, unspecified (principal)

== ENCOUNTER → 2018-10-04 | Outpatient (REF) | payer MEDICARE ==
[2018-10-04 08:17] LABS: MEAN CORPUSCULAR HEMOGLOBIN 30.3 pg (27.0-33.0); MEAN CORPUSCULAR HGB CONC 30.8 g/dl (32.0-36.5); MEAN CORPUSCULAR VOLUME 98.5 fl (80.0-96.0); PLATELET COUNT, AUTOMATED 530 10^3/uL (150-450); RED BLOOD COUNT 3.96 10^6/uL (4.30-6.10); WHITE BLOOD COUNT 19.5 10^3/uL (4.0-10.0)
== END ==
LOC: SKLAB3 08:00
PROVIDERS: ATTEND Internal Medicine
DX: K62.5 Hemorrhage of anus and rectum (principal)

== ENCOUNTER → 2018-10-09 | Outpatient (REF) ==
[2018-10-09 07:22] LABS: HEMATOCRIT 38.3 % (42.0-52.0); HEMOGLOBIN 11.8 g/dl (13.5-17.5); MEAN CORPUSCULAR HEMOGLOBIN 30.5 pg (27.0-33.0); MEAN CORPUSCULAR HGB CONC 30.8 g/dl (32.0-36.5); PLATELET COUNT, AUTOMATED 488 10^3/uL (150-450); RED BLOOD COUNT 3.87 10^6/uL (4.30-6.10); WHITE BLOOD COUNT 15.6 10^3/uL (4.0-10.0)
[2018-10-09 07:51] LABS: C REACTIVE PROTEIN QUANTITATIV 0.44 MG/DL (0.00-0.30); CREATININE FOR GFR 1.32 MG/DL (0.70-1.30); GLOMERULAR FILTRATION RATE 55.7 (>42); POTASSIUM SERUM 4.4 MEQ/L (3.5-5.1)
[2018-10-09 08:16] LABS: ERYTHROCYTE SEDIMENTATION RATE 49 mm/hr (0-20)
== END ==
LOC: SKLAB3 08:00
PROVIDERS: ATTEND Internal Medicine
DX: L03.90 Cellulitis, unspecified (principal)

== ENCOUNTER → 2018-10-22 | Outpatient (REF) ==
[2018-10-22 07:35] LABS: HEMATOCRIT 40.3 % (42.0-52.0); HEMOGLOBIN 12.6 g/dl (13.5-17.5); MEAN CORPUSCULAR HEMOGLOBIN 30.7 pg (27.0-33.0); MEAN CORPUSCULAR HGB CONC 31.3 g/dl (32.0-36.5); MEAN CORPUSCULAR VOLUME 98.1 fl (80.0-96.0); PLATELET COUNT, AUTOMATED 584 10^3/uL (150-450); RED BLOOD COUNT 4.11 10^6/uL (4.30-6.10)
[2018-10-22 10:03] LABS: ERYTHROCYTE SEDIMENTATION RATE 43 mm/hr (0-20)
== END ==
LOC: SKLAB8 08:00
PROVIDERS: ATTEND Internal Medicine
DX: L03.90 Cellulitis, unspecified (principal)

== ENCOUNTER → 2018-11-14 | Outpatient (REF) | payer MEDICARE ==
[2018-11-14 09:27] LABS: HEMATOCRIT 42.1 % (42.0-52.0); HEMOGLOBIN 13.3 g/dl (13.5-17.5); MEAN CORPUSCULAR HEMOGLOBIN 30.6 pg (27.0-33.0); MEAN CORPUSCULAR HGB CONC 31.6 g/dl (32.0-36.5); PLATELET COUNT, AUTOMATED 492 10^3/uL (150-450); RED BLOOD COUNT 4.34 10^6/uL (4.30-6.10)
== END ==
LOC: SKLAB8 07:00
PROVIDERS: ATTEND Internal Medicine
DX: D64.9 Anemia, unspecified (principal)

== ENCOUNTER → 2018-12-16 | Outpatient (REF) | payer MEDICARE ==
[~2018-12-16] MED LIST changes: -ASCO25TA PO; -ASPI1TAB PO; -ASPI81CH PO; +ASPI81CH49 PO; +ASPI81TA26 PO; +SENN-50 PO; +SENN1TAB41 PO; -SENN8.6T54 PO; -SENN8.6T7 PO; +SERT-141 PO; -SERT25TA PO; +SERT25TA85 PO; -SERT50TA PO; +VITA-183 PO; -VITA1CAP2 PO; +VITA1TAB23 PO
[2018-12-16 15:28] LABS: BASO # 0.1 10^3/uL (0.0-0.2); BASO % 0.4 % (0.0-1.0); EOS # 0.2 10^3/uL (0.0-0.50); EOS % 0.7 % (0.0-3.0); HEMATOCRIT 35.6 % (42.0-52.0); HEMOGLOBIN 11.4 g/dl (13.5-17.5); LYMPH % 8.8 % (24.0-44.0); MEAN CORPUSCULAR HEMOGLOBIN 31.8 pg (27.0-33.0); MEAN CORPUSCULAR VOLUME 99.2 fl (80.0-96.0); MONO % 31.4 % (0.0-5.0); NEUTROPHILS # 13.2 10^3/uL (1.8-7.7); NEUTROPHILS % 57.8 % (36.0-66.0); PLATELET COUNT, AUTOMATED 434 10^3/uL (150-450); RED BLOOD COUNT 3.59 10^6/uL (4.30-6.10); WHITE BLOOD COUNT 22.9 10^3/uL (4.0-10.0)
[2018-12-16 16:17] LABS: MONO # 7.2 10^3/uL (0.0-0.8)
== END ==
LOC: SKLAB8 13:30
PROVIDERS: ATTEND Internal Medicine
DX: D64.9 Anemia, unspecified (principal)

== ENCOUNTER → 2019-02-06 | Outpatient (REF) | payer MEDICARE, MEDICAID ==
[2019-02-06 08:00] LABS: HEMATOCRIT 34.9 % (42.0-52.0); HEMOGLOBIN 11.5 g/dl (13.5-17.5); MEAN CORPUSCULAR HEMOGLOBIN 33.1 pg (27.0-33.0); MEAN CORPUSCULAR VOLUME 100.6 fl (80.0-96.0); PLATELET COUNT, AUTOMATED 503 10^3/uL (150-450); RED BLOOD COUNT 3.47 10^6/uL (4.30-6.10); WHITE BLOOD COUNT 16.5 10^3/uL (4.0-10.0)
== END ==
LOC: SKLAB8 07:00
PROVIDERS: ATTEND Internal Medicine
DX: D64.9 Anemia, unspecified (principal)

== ENCOUNTER → 2019-04-10 | Outpatient (REF) | payer MEDICARE, MEDICAID ==
[2019-04-10 08:25] LABS: ALBUMIN 3.8 GM/DL (3.2-5.2); BILIRUBIN,TOTAL 0.4 MG/DL (0.2-1.0); CALCIUM LEVEL 9.6 MG/DL (8.8-10.2); CREATININE FOR GFR 1.94 MG/DL (0.70-1.30); GLOMERULAR FILTRATION RATE 35.7 (>42); POTASSIUM SERUM 4.2 MEQ/L (3.5-5.1); TOTAL PROTEIN 8.4 GM/DL (6.4-8.2)
== END ==
LOC: SKLAB8 07:00
PROVIDERS: ATTEND Internal Medicine
DX: D64.9 Anemia, unspecified (principal)

== ENCOUNTER → 2019-04-17 | Outpatient (REF) | payer MEDICARE, MEDICAID ==
[2019-04-17 07:18] LABS: CALCIUM LEVEL 9.1 MG/DL (8.8-10.2); CREATININE FOR GFR 1.73 MG/DL (0.70-1.30); GLOMERULAR FILTRATION RATE 40.8 (>42); POTASSIUM SERUM 4.5 MEQ/L (3.5-5.1)
== END ==
LOC: SKLAB8 07:00
PROVIDERS: ATTEND Internal Medicine
DX: F03.90 Unspecified dementia, unspecified severity, without behavioral disturbance, psychotic disturbance, mood disturbance, and anxiety (principal); D64.9 Anemia, unspecified

== ENCOUNTER → 2019-05-08 | Outpatient (REF) | payer MEDICARE, MEDICAID ==
[~2019-05-08] MED LIST changes: +APAP325T4 PO; +CALCCAP4 PO; +CHOL100029 PO; +D 202000 PO; +DROX300C PO; +ENSU1LIQ36 PO; +EQL0.65S NARES; +MACR100C43 PO; +MILKSUS3 PO; -SIMV40TA2 PO; +SIMV40TA20 PO; -VITAD1000T PO
[2019-05-08 08:41] LABS: HEMATOCRIT 36.4 % (42.0-52.0); HEMOGLOBIN 11.7 g/dl (13.5-17.5); MEAN CORPUSCULAR HEMOGLOBIN 33.8 pg (27.0-33.0); MEAN CORPUSCULAR HGB CONC 32.1 g/dl (32.0-36.5); MEAN CORPUSCULAR VOLUME 105.2 fl (80.0-96.0); PLATELET COUNT, AUTOMATED 416 10^3/uL (150-450); RED BLOOD COUNT 3.46 10^6/uL (4.30-6.10); WHITE BLOOD COUNT 20.2 10^3/uL (4.0-10.0)
== END ==
LOC: SKLAB8 07:00
PROVIDERS: ATTEND Internal Medicine
DX: D64.9 Anemia, unspecified (principal)

== ENCOUNTER → 2019-05-30 | Outpatient (REF) | payer MEDICARE, MEDICAID ==
[~2019-05-30] MED LIST changes: -APAP325T4 PO; -CALCCAP4 PO; -D 202000 PO; -DROX300C PO; -ENSU1LIQ36 PO; -EQL0.65S NARES; -MACR100C43 PO; -MILKSUS3 PO; +SIMV40TA2 PO; -SIMV40TA20 PO
[2019-05-30 16:53] LABS: CALCIUM LEVEL 9.5 MG/DL (8.8-10.2); CREATININE FOR GFR 2.52 MG/DL (0.70-1.30); GLOMERULAR FILTRATION RATE 26.4 (>42); POTASSIUM SERUM 4.2 MEQ/L (3.5-5.1)
== END ==
LOC: SKLAB8 07:00
PROVIDERS: ATTEND Internal Medicine
DX: I12.9 Hypertensive chronic kidney disease with stage 1 through stage 4 chronic kidney disease, or unspecified chronic kidney disease (principal); N18.9 Chronic kidney disease, unspecified; F01.50 Vascular dementia, unspecified severity, without behavioral disturbance, psychotic disturbance, mood disturbance, and anxiety

== ENCOUNTER → 2019-06-02 | Outpatient (REF) | payer MEDICARE, MEDICAID ==
[2019-06-02 14:53] LABS: APPEARANCE, URINE TURBID (CLEAR); BACTERIA, URINE AUTO 1+ (NEGATIVE); BILIRUBIN, URINE AUTO NEGATIVE (NEGATIVE); BLOOD, URINE BLOOD NEGATIVE (NEGATIVE); COLOR, URINE YELLOW (YELLOW); GLUCOSE, URINE (UA) AUTO 1+ mg/dL (NEGATIVE); KETONE, URINE AUTO NEGATIVE (NEGATIVE); LEUKOCYTE ESTERASE, URINE AUTO 3+ (NEGATIVE); NITRITE, URINE AUTO NEGATIVE (NEGATIVE); PROTEIN, URINE AUTO 3+ mg/dL (NEGATIVE); RBC, URINE AUTO 15 /HPF (0-3); SPECIFIC GRAVITY URINE AUTO 1.015 (1.002-1.035); SQUAMOUS EPITHELIAL CELL UR AU 3 /HPF (0-6); TRANSITIONAL EPITHELIAL AUTO 2 /HPF; UROBILINOGEN, URINE AUTO 0.2 mg/dL (0.0-2.0); WBC, URINE AUTO TNTC /HPF (0-3)
== END ==
LOC: SKLAB8 07:00
PROVIDERS: ATTEND Nurse Practitioner Family
DX: F01.50 Vascular dementia, unspecified severity, without behavioral disturbance, psychotic disturbance, mood disturbance, and anxiety (principal); R32 Unspecified urinary incontinence

== ENCOUNTER → 2019-06-06 | Outpatient (REF) | payer MEDICARE, MEDICAID ==
[2019-06-06 08:12] LABS: CALCIUM LEVEL 9.6 MG/DL (8.8-10.2); CREATININE FOR GFR 2.6 MG/DL (0.70-1.30); GLOMERULAR FILTRATION RATE 25.5 (>42); POTASSIUM SERUM 4.1 MEQ/L (3.5-5.1)
== END ==
LOC: SKLAB8 07:00
PROVIDERS: ATTEND Internal Medicine
DX: F01.50 Vascular dementia, unspecified severity, without behavioral disturbance, psychotic disturbance, mood disturbance, and anxiety (principal)

== ENCOUNTER → 2019-06-12 | Outpatient (REF) | payer MEDICARE, MEDICAID ==
[~2019-06-12] MED LIST changes: +ENSU1LIQ36 PO; +EQL0.65S
[2019-06-12 10:05] LABS: HEMATOCRIT 38.5 % (42.0-52.0); HEMOGLOBIN 12.1 g/dl (13.5-17.5); MEAN CORPUSCULAR HEMOGLOBIN 32.6 pg (27.0-33.0); MEAN CORPUSCULAR HGB CONC 31.4 g/dl (32.0-36.5); MEAN CORPUSCULAR VOLUME 103.8 fl (80.0-96.0); PLATELET COUNT, AUTOMATED 499 10^3/uL (150-450); RED BLOOD COUNT 3.71 10^6/uL (4.30-6.10); WHITE BLOOD COUNT 15.8 10^3/uL (4.0-10.0)
[2019-06-12 10:33] LABS: BILIRUBIN,TOTAL 0.4 MG/DL (0.2-1.0); CALCIUM LEVEL 9.6 MG/DL (8.8-10.2); CREATININE FOR GFR 2.05 MG/DL (0.70-1.30); GLOMERULAR FILTRATION RATE 33.5 (>42); POTASSIUM SERUM 3.3 MEQ/L (3.5-5.1); TOTAL PROTEIN 8.7 GM/DL (6.4-8.2)
== END ==
LOC: SKLAB8 07:00
PROVIDERS: ATTEND Internal Medicine
DX: D50.9 Iron deficiency anemia, unspecified (principal)

== ENCOUNTER → 2019-06-13 | Outpatient (REF) | payer MEDICARE, MEDICAID ==
[2019-06-13 12:04] LABS: PERCENT SATURATION 23.1 % (19.7-50.0)
== END ==
LOC: SKLAB8 07:00
PROVIDERS: ATTEND Internal Medicine
DX: D50.9 Iron deficiency anemia, unspecified (principal)

== ENCOUNTER → 2019-06-27 | Outpatient (REF) | payer MEDICARE, MEDICAID ==
[~2019-06-27] MED LIST changes: +APAP325T4 PO; +DROX300C PO; -EQL0.65S; +EQL0.65S NARES; +MILKSUS3 PO
[2019-06-27 08:23] LABS: CALCIUM LEVEL 9.9 MG/DL (8.8-10.2); CREATININE FOR GFR 2.92 MG/DL (0.70-1.30); GLOMERULAR FILTRATION RATE 22.3 (>42); POTASSIUM SERUM 4.4 MEQ/L (3.5-5.1)
[2019-06-27 13:49] LABS: HEMATOCRIT 35.1 % (42.0-52.0); HEMOGLOBIN 11.1 g/dl (13.5-17.5); MEAN CORPUSCULAR HEMOGLOBIN 32.2 pg (27.0-33.0); MEAN CORPUSCULAR HGB CONC 31.6 g/dl (32.0-36.5); MEAN CORPUSCULAR VOLUME 101.7 fl (80.0-96.0); PLATELET COUNT, AUTOMATED 506 10^3/uL (150-450); RED BLOOD COUNT 3.45 10^6/uL (4.30-6.10); WHITE BLOOD COUNT 16.1 10^3/uL (4.0-10.0)
[2019-06-27 13:58] LABS: INR 1.28; PARTIAL THROMBOPLASTIN TIME 31.6 SECONDS (25.0-38.4); PROTHROMBIN TIME 15.8 SECONDS (11.8-14.0)
--- NOTE | 2019-06-27 18:19 | REP ---
HISTORY: Proximal femoral pain, status post THR. Two views of the left hip were obtained with AP and lateral views of the left femur. COMPARISON: 09/13/2018 Since the last examination, an acute lucency has developed in the proximal femur at the femoral neck base. The hip joint is unchanged from the prior exam. There is asymmetric hip joint space narrowing. The intramedullary seng proximally and distally is unchanged. IMPRESSION: Possible acute proximal femoral fracture as described above. Electronically Signed by Marciano Almanza DO 06/30/2019 04:12 P
== END ==
LOC: SKLAB8 07:00
PROVIDERS: ATTEND Internal Medicine
DX: M79.652 Pain in left thigh (principal); Z96.642 Presence of left artificial hip joint

== ENCOUNTER 2019-06-28 07:32 | Emergency (ER) | payer MEDICARE, MEDICAID ==
[~2019-06-28] VITALS: Ht 172.7 cm; Wt 81.4 kg
[~2019-06-28 07:32] MED LIST changes: -APAP325T4 PO; -DROX300C PO; -MILKSUS3 PO
[2019-06-28] MEDS ORDERED: MILKSUS3 PO (08:11)
[2019-06-28] MEDS ORDERED: DROX300C PO (08:11)
[2019-06-28] MEDS ORDERED: APAP325T4 PO (08:11)
[2019-06-28] MEDS ORDERED: ACETAMINOPHEN TAB 650MG DOSE (2X325MG) PO ONE (08:15)
--- NOTE | 2019-06-28 09:12 | REP ---
Right shoulder three views: Comparisons are the right shoulder series dated 05/09/[address] dated 04/23/2018. There is no acute fracture or dislocation. There is acromioclavicular osteoarthritis, unchanged. There is chronic narrowing of the subacromial space compatible with chronic impingement. This is unchanged. There is a large calcification interposed between the clavicle and coracoid, unchanged. On the comparison CT this appears to be an osteochondroma arising from the distal clavicle inferiorly. Impression: No acute fracture or dislocation. Chronic impingement. 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 Electronically Signed by Ted Morrell MD 06/28/2019 09:03 A
--- NOTE | 2019-06-28 09:22 | REP ---
CT of the left hip without IV contrast: Axial images are acquired helical scanning and a reformatted in sagittal coronal projections. Comparison is the plain film study dated 09/13 2018. There is gamma nail fixation. There is a l subtrochanteric lucent fracture line and there is an intertrochanteric lucent fracture line. These may represent recurrent acute fractures or may represent fibrous union of the original fracture. There is fragmentation of the greater lesser trochanters. This is unchanged. There is no dislocation. There is an old healed fracture of the left ischium. Impression: Lucent subtrochanteric an intertrochanteric fracture lines, acute fractures versus fibrous union of the original fractures. There is an old healed fracture of the left ischium. Electronically Signed by Ted Morrell MD 06/28/2019 09:14 A
[2019-06-28 10:47] VITALS: BP 120/71
--- NOTE | 2019-06-28 11:23 | CR ---
DATE OF CONSULTATION: 06/28/2019 INDICATION: Question acute left hip fracture. HISTORY OF PRESENT ILLNESS: Mr. Alcala is a 78-year-old gentleman, resident at [facility] who is believed to have suffered an unwitnessed fall in the past few days and a bruise was noted in the anterior thigh of the left leg and complaints of pain. He has fairly advanced dementia. He transfers from a wheelchair to bed or the bathroom somewhat independently. Occasionally uses a walker. Of note, he did have an intertrochanteric fracture fixed by my partner Dr. Colt White in July 2018. X-rays and CT scan raised the possibility of an acute refracture versus delayed union. For the patient's full past medical history, past surgical history, medications, allergies, social history and review of systems, please see the prior hospitalist history and physical which I have reviewed. PHYSICAL EXAM: Reveals an elderly gentleman who is sleeping on a hospital stretcher. He does not answer questions. Cardiovascular: 1+ PT pulse. Pulmonary: Nonlabored breathing. Skin is intact without open lesions. Prior incisions are well-healed. There is evidence of subacute bruising in the anterior medial thigh close to the hip. He does not grimace or elicit any signs of pain with palpation at the greater trochanter. Internal and external rotation with log roll elicits mild discomfort. There is no effusion at the knee. He does not follow commands to assess motor and sensation in the foot. X-rays of the left hip and left femur previously obtained were available for my review. These show an intertrochanteric femur fracture status post intermediate cephalomedullary nailing and it shows compression at the fracture site. It show what looks to be least partial union. There are no periimplant fractures. No fractures at the tip or distal to the stem. 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 Overall fracture alignment is still quite good and there is no sign of hardware breakage. ASSESSMENT/PLAN: Juan Alcala is a 78-year-old gentleman with left hip pain either due to a contusion or aggravation of a partial nonunion. At this point, the fracture is still in acceptable alignment. There is no sign of hardware failure and there is no indication for further surgery. I would recommend a vitamin D level be checked on an outpatient basis and if that is low, vitamin D supplements added to his diet. I also recommend a bone stimulator be ordered on an outpatient basis for this nonunion. The patient could be weightbearing as tolerated. He can continue to transfer from bed to wheelchair. I would highly recommend that the staff at [facility] try to get the patient to use a walker instead of cheating holding onto the sink or banister as the daughter and aide from [facility] were specifically warned he will be an increased fall risk with this acute episode of hip pain. They will contact the office on Sunday to set up an appointment with Dr. White. All their questions were answered. They agree with the plan.
--- NOTE | 2019-06-30 10:41 | ED PDOC ---
Post-Departure Follow-Up dr farrell and dr granados faxed formal report of ct femur and right shoulder xr ay for fu Drew Cartagena MD Jun 30, 2019 10:41
== END 2019-06-28 10:59 | disposition home or self-care (01) ==
LOC: EDBD 07:32 → M ED 07:32
DX: S72.92XA Unspecified fracture of left femur, initial encounter for closed fracture (principal); D16.01 Benign neoplasm of scapula and long bones of right upper limb; X58.XXXA Exposure to other specified factors, initial encounter; Y92.129 Unspecified place in nursing home as the place of occurrence of the external cause; Y93.9 Activity, unspecified; Y99.9 Unspecified external cause status; Z95.5 Presence of coronary angioplasty implant and graft; F03.90 Unspecified dementia, unspecified severity, without behavioral disturbance, psychotic disturbance, mood disturbance, and anxiety; G93.40 Encephalopathy, unspecified; R13.10 Dysphagia, unspecified; I25.2 Old myocardial infarction; E78.00 Pure hypercholesterolemia, unspecified; I10 Essential (primary) hypertension; K21.9 Gastro-esophageal reflux disease without esophagitis; N18.9 Chronic kidney disease, unspecified; N40.0 Benign prostatic hyperplasia without lower urinary tract symptoms; E03.9 Hypothyroidism, unspecified; D64.9 Anemia, unspecified; F41.9 Anxiety disorder, unspecified; G47.00 Insomnia, unspecified; Z87.81 Personal history of (healed) traumatic fracture; Z79.82 Long term (current) use of aspirin; Z79.899 Other long term (current) drug therapy

== ENCOUNTER → 2019-07-04 | Outpatient (REF) | payer MEDICARE, MEDICAID ==
[~2019-07-04] MED LIST changes: +APAP325T4 PO; +DROX300C PO; +MILKSUS3 PO
[2019-07-04 08:22] LABS: CALCIUM LEVEL 8.6 MG/DL (8.8-10.2); CREATININE FOR GFR 2.28 MG/DL (0.70-1.30); GLOMERULAR FILTRATION RATE 29.6 (>42); POTASSIUM SERUM 4.5 MEQ/L (3.5-5.1)
== END ==
LOC: SKLAB8 07:00
PROVIDERS: ATTEND Internal Medicine
DX: Z79.899 Other long term (current) drug therapy (principal)

== ENCOUNTER → 2019-07-10 | Outpatient (REF) | payer MEDICARE, MEDICAID | LOC: SKLAB8 07:00 | PROVIDERS: ATTEND Internal Medicine | DX: Z79.899 Other long term (current) drug therapy (principal) ==

== ENCOUNTER → 2019-07-25 | Outpatient (REF) | payer MEDICARE, MEDICAID ==
[2019-07-25 08:27] LABS: BASO # 0.1 10^3/uL (0.0-0.2); BASO % 0.5 % (0.0-1.0); EOS # 0.2 10^3/uL (0.0-0.5); EOS % 1.1 % (0.0-3.0); HEMATOCRIT 39.6 % (42.0-52.0); HEMOGLOBIN 12.1 g/dl (13.5-17.5); LYMPH # 2.3 10^3/uL (1.5-5.0); LYMPH % 13.7 % (24.0-44.0); MEAN CORPUSCULAR HEMOGLOBIN 31.3 pg (27.0-33.0); MEAN CORPUSCULAR HGB CONC 30.6 g/dl (32.0-36.5); MEAN CORPUSCULAR VOLUME 102.6 fl (80.0-96.0); MONO % 33.1 % (0.0-5.0); NEUTROPHILS # 8.5 10^3/uL (1.5-8.5); NEUTROPHILS % 50.5 % (36.0-66.0); PLATELET COUNT, AUTOMATED 566 10^3/uL (150-450); RED BLOOD COUNT 3.86 10^6/uL (4.30-6.10); WHITE BLOOD COUNT 16.8 10^3/uL (4.0-10.0)
[2019-07-25 08:30] LABS: MONO # 5.6 10^3/uL (0.0-0.8)
== END ==
LOC: SKLAB8 08:00
PROVIDERS: ATTEND Internal Medicine
DX: Z79.899 Other long term (current) drug therapy (principal)

== ENCOUNTER → 2019-08-02 | Outpatient (REF) | payer MEDICARE, MEDICAID ==
[2019-08-02 15:37] LABS: APPEARANCE, URINE TURBID (CLEAR); BACTERIA, URINE AUTO 3+ (NEGATIVE); BILIRUBIN, URINE AUTO NEGATIVE (NEGATIVE); BLOOD, URINE BLOOD 1+ (NEGATIVE); COLOR, URINE YELLOW (YELLOW); GLUCOSE, URINE (UA) AUTO NEGATIVE (NEGATIVE); KETONE, URINE AUTO NEGATIVE (NEGATIVE); LEUKOCYTE ESTERASE, URINE AUTO 3+ (NEGATIVE); NITRITE, URINE AUTO NEGATIVE (NEGATIVE); PROTEIN, URINE AUTO 3+ mg/dL (NEGATIVE); RBC, URINE AUTO 0 /HPF (0-3); SPECIFIC GRAVITY URINE AUTO 1.018 (1.002-1.035); SQUAMOUS EPITHELIAL CELL UR AU 0 /HPF (0-6); UROBILINOGEN, URINE AUTO 0.2 mg/dL (0.0-2.0); WBC, URINE AUTO 71 /HPF (0-3)
== END ==
LOC: SKLAB8 13:59
PROVIDERS: ATTEND Internal Medicine
DX: R39.89 Other symptoms and signs involving the genitourinary system (principal)

== ENCOUNTER 2019-08-11 01:46 | Emergency (ER) | payer MEDICARE, MEDICAID ==
[~2019-08-11] VITALS: Ht 172.7 cm; Wt 79.1 kg
--- NOTE | 2019-08-11 02:58 | REPVR ---
PROCEDURE INFORMATION: Exam: CT Head Without Contrast Exam date and time: 08/11/2019 2:40 AM Clinical history: 78 years old, male; Pain; Headache; Additional info: Fall and hit head TECHNIQUE: Imaging protocol: Computed tomography of the head without contrast. Radiation optimization: All CT scans at this facility use at least one of these dose optimization techniques: automated exposure control; mA and/or kV adjustment per patient size (includes targeted exams where dose is matched to clinical indication); or iterative reconstruction. COMPARISON: CT Head without contrast 2018-08-14 02:17 FINDINGS: Brain: Diffuse severe cerebral volume loss. Diffuse moderate to severe patchy low attenuation in the white matter compatible with chronic small vessel ischemic disease. No midline shift, mass, fluid collection, or evidence of hemorrhage. Ventricles: Ventricular enlargement proportional to volume loss. Bones/joints: Unremarkable. No acute fracture. Sinuses: Visualized sinuses are unremarkable. No fluid levels. Mastoid air cells: Visualized mastoid air cells are well aerated. Soft tissues: Small left forehead hematoma. IMPRESSION: 1. Moderate to severe involutional changes, no acute intracranial abnormality. 2. Small left forehead hematoma. Electronically signed by: Hilario Dobson On 08/11/2019 02:58:50 AM
--- NOTE | 2019-08-11 03:04 | REPVR ---
PROCEDURE INFORMATION: Exam: CT Cervical Spine Without Contrast Exam date and time: 08/11/2019 2:40 AM Clinical history: 78 years old, male; Neck pain; Additional info: Fall and hit head TECHNIQUE: Imaging protocol: Computed tomography images of the cervical spine without contrast. Radiation optimization: All CT scans at this facility use at least one of these dose optimization techniques: automated exposure control; mA and/or kV adjustment per patient size (includes targeted exams where dose is matched to clinical indication); or iterative reconstruction. COMPARISON: CT Spine,cervical w/o contrast 2018-08-14 02:17 FINDINGS: Vertebrae: Recent appearing C7 mild inferior endplate fracture. Recent superior T1, and age-indeterminate but likely chronic superior T2 mild compression fractures with vertebral body mild height loss. Moderate right TMJ degenerative joint disease. Reversal the normal cervical lordosis. 1 mm C3-C4 anterolisthesis. C4-C5 2 mm anterolisthesis. C7-T1 2 mm anterolisthesis. T1-T2 2 mm anterolisthesis. Discs/Spinal canal/Neural foramina: Diffuse degenerative disc space loss with degenerative disc osteophyte complexes, facet arthropathy, and ligamentum flavum thickening causes up to moderate spinal and moderate to severe foraminal stenosis greatest at C4-C6. Soft tissues: Unremarkable. Auditory system: Left mastoid and middle ear opacification with erosion of the left extra auditory canal, and suspected previous surgery, correlate with surgical history. Lungs: Lung apices are normal. Vasculature: Severe atherosclerotic calcification in the distal left common carotid artery. IMPRESSION: 1. Recent appearing C7 mild inferior endplate fracture. 2. Recent superior T1, and age-indeterminate but likely chronic superior T2 mild compression fractures with vertebral body mild height loss. 3. Left mastoid and middle ear opacification with erosion of the left extra auditory canal, and suspected previous surgery, correlate with surgical history. 4. Severe atherosclerotic calcification in the distal left common carotid artery. Electronically signed by: Hilario Dobson On 08/11/2019 03:04:13 AM
[2019-08-11 04:07] VITALS: BP 112/64
== END 2019-08-11 04:20 | disposition home or self-care (01) ==
LOC: M ED 01:46
DX: S12.600A Unspecified displaced fracture of seventh cervical vertebra, initial encounter for closed fracture (principal); S22.000A Wedge compression fracture of unspecified thoracic vertebra, initial encounter for closed fracture; S00.83XA Contusion of other part of head, initial encounter; H74.8X3 Other specified disorders of middle ear and mastoid, bilateral; W05.0XXA Fall from non-moving wheelchair, initial encounter; Y92.129 Unspecified place in nursing home as the place of occurrence of the external cause; Y93.89 Activity, other specified; Y99.9 Unspecified external cause status; I25.10 Atherosclerotic heart disease of native coronary artery without angina pectoris; F03.90 Unspecified dementia, unspecified severity, without behavioral disturbance, psychotic disturbance, mood disturbance, and anxiety; Z79.82 Long term (current) use of aspirin; Z79.899 Other long term (current) drug therapy

== ENCOUNTER 2019-08-11 18:43 | Emergency (ER) | payer MEDICARE, MEDICAID ==
[2019-08-11 21:20] VITALS: BP 98/56
== END 2019-08-11 21:42 | disposition home or self-care (01) ==
LOC: M ED 18:43
DX: S01.01XA Laceration without foreign body of scalp, initial encounter (principal); W19.XXXA Unspecified fall, initial encounter; Y92.129 Unspecified place in nursing home as the place of occurrence of the external cause; Y93.9 Activity, unspecified; Y99.9 Unspecified external cause status; F03.90 Unspecified dementia, unspecified severity, without behavioral disturbance, psychotic disturbance, mood disturbance, and anxiety; Z79.82 Long term (current) use of aspirin; Z79.899 Other long term (current) drug therapy

== ENCOUNTER → 2019-08-14 | Outpatient (REF) | payer MEDICARE, MEDICAID ==
[~2019-08-14] MED LIST changes: +CALCCAP4 PO; +D 202000 PO; +MACR100C43 PO; -SIMV40TA2 PO; +SIMV40TA20 PO
[2019-08-14 10:09] LABS: HEMATOCRIT 38.7 % (42.0-52.0); HEMOGLOBIN 11.6 g/dl (13.5-17.5); MEAN CORPUSCULAR HEMOGLOBIN 31.7 pg (27.0-33.0); MEAN CORPUSCULAR VOLUME 105.7 fl (80.0-96.0); PLATELET COUNT, AUTOMATED 616 10^3/uL (150-450); RED BLOOD COUNT 3.66 10^6/uL (4.30-6.10); WHITE BLOOD COUNT 17.3 10^3/uL (4.0-10.0)
== END ==
LOC: SKLAB8 08:00
PROVIDERS: ATTEND Internal Medicine
DX: Z79.899 Other long term (current) drug therapy (principal)

== ENCOUNTER → 2019-08-16 | Outpatient (REF) | payer MEDICARE, MEDICAID ==
[~2019-08-16] MED LIST changes: +SIMV40TA2 PO; -SIMV40TA20 PO
[2019-08-16 12:28] LABS: APPEARANCE, URINE MANUAL TURBID (CLEAR); COLOR, URINE MANUAL DK YELLOW (YELLOW)
[2019-08-16 12:29] LABS: BILIRUBIN, URINE MANUAL NEGATIVE (NEGATIVE); BLOOD URINE MANUAL POSITIVE (NEGATIVE); GLUCOSE, URINE (UA) MANUAL NEGATIVE (NEGATIVE); KETONE, URINE MANUAL NEGATIVE (NEGATIVE); LEUKOCYTE ESTERASE, URINE MAN POSITIVE (NEGATIVE); NITRITE, URINE MANUAL POSITIVE (NEGATIVE); PROTEIN, URINE MANUAL 3+ mg/dL (NEGATIVE); SPECIFIC GRAVITY,URINE MANUAL 1.005 (1.002-1.035); UROBILINOGEN, URINE MANUAL NORMAL (NORMAL)
[2019-08-16 12:57] LABS: BACTERIA, URINE LARGE AMOUNT; HYALINE CAST, URINE NONE SEEN /lpf (0-1); RBC, URINE TNTC /hpf (0-3); SQUAMOUS EPITHELIAL CELL URINE NONE SEEN /hpf (SMALL AMT); WBC, URINE TNTC /hpf (0-3)
== END ==
LOC: SKLAB8 10:45
PROVIDERS: ATTEND Internal Medicine
DX: R31.9 Hematuria, unspecified (principal)

== ENCOUNTER 2019-08-17 09:41 | Inpatient (IN) | payer MEDICARE, MEDICAID ==
[~2019-08-17] VITALS: Ht 185.4 cm; Wt 79.3 kg
[~2019-08-17 09:41] MED LIST changes: -CALCCAP4 PO; -D 202000 PO; -MACR100C43 PO; -SIMV40TA2 PO; +SIMV40TA20 PO
[2019-08-17] MEDS ORDERED: MACR100C43 PO (10:21)
[2019-08-17] MEDS ORDERED: D 202000 PO (10:21)
[2019-08-17] MEDS ORDERED: CALCCAP4 PO (10:21)
[2019-08-17 10:34] LABS: BASO # 0.1 10^3/uL (0.0-0.2); BASO % 0.5 % (0.0-1.0); EOS # 0.2 10^3/uL (0.0-0.5); EOS % 0.8 % (0.0-3.0); HEMATOCRIT 36.3 % (42.0-52.0); LYMPH # 3.1 10^3/uL (1.5-5.0); LYMPH % 14.3 % (24.0-44.0); MEAN CORPUSCULAR HEMOGLOBIN 31.3 pg (27.0-33.0); MEAN CORPUSCULAR HGB CONC 30.3 g/dl (32.0-36.5); MEAN CORPUSCULAR VOLUME 103.1 fl (80.0-96.0); MONO % 28.4 % (0.0-5.0); NEUTROPHILS # 11.9 10^3/uL (1.5-8.5); NEUTROPHILS % 55.3 % (36.0-66.0); PLATELET COUNT, AUTOMATED 641 10^3/uL (150-450); RED BLOOD COUNT 3.52 10^6/uL (4.30-6.10); WHITE BLOOD COUNT 21.6 10^3/uL (4.0-10.0)
[2019-08-17 10:47] LABS: BILIRUBIN, URINE MANUAL NEGATIVE (NEGATIVE); GLUCOSE, URINE (UA) MANUAL NEGATIVE (NEGATIVE); KETONE, URINE MANUAL NEGATIVE (NEGATIVE); UROBILINOGEN, URINE MANUAL NORMAL (NORMAL)
[2019-08-17 10:47] LABS: INR 1.23; PROTHROMBIN TIME 15.2 SECONDS (11.8-14.0)
[2019-08-17 10:48] LABS: PARTIAL THROMBOPLASTIN TIME 31.2 SECONDS (25.0-38.4)
[2019-08-17 10:49] LABS: RBC, URINE TNTC /hpf (0-3)
[2019-08-17 10:50] LABS: AMORPHOUS SEDIMENT, URINE SMALL AMOUNT (NEGATIVE); BACTERIA, URINE NONE SEEN; HYALINE CAST, URINE NONE SEEN /lpf (0-1); SQUAMOUS EPITHELIAL CELL URINE SMALL AMOUNT /hpf (SMALL AMT)
[2019-08-17 11:03] LABS: CALCIUM LEVEL 9.9 MG/DL (8.8-10.2); CREATININE FOR GFR 2.82 MG/DL (0.70-1.30); GLOMERULAR FILTRATION RATE 23.2 (>42); POTASSIUM SERUM 4.3 MEQ/L (3.5-5.1)
--- NOTE | 2019-08-17 11:03 | REP ---
REASON: Hematuria. COMPARISON: 10/15/2017, also without contrast. In the right lung base, there are two nodules. The largest measures approximately 2 cm. This may have increased compared to the prior exam. There are no other lung base changes. Limited evaluation of the solid intra-abdominal organs show no significant changes from the prior exam. There is cholelithiasis status quo. Limited evaluation of the pancreas, adrenal glands, and kidneys show no significant changes from the prior exam. There is no evidence of nephroureterolithiasis, hydronephrosis, or hydroureter. There are no urinary blood or calcifications. Limited evaluation of the abdominal aorta and para-aortic regions show no significant changes from the prior exam. There is bilateral common iliac arterial ectasia. There is no evidence of para-aortic adenopathy. There is no free fluid or free air in the abdomen. The bowel loops and their mesenteries are within normal limits. There is no evidence of an intra-abdominal mass or adenopathy. There are scattered mesenteric calcifications essentially unchanged. CT PELVIS: Abnormal filling defect in the urinary bladder difficult to evaluate without intravenous contrast. The bladder wall was thickened. There was no free fluid or free air in the pelvis. There is sigmoid colon diverticulosis. Bone window technique throughout the exam show chronic left hip changes with previous ORIF. Degenerative change also seen involving the spine and sacroiliac joints. IMPRESSION: 1. Right lung base nodules as described above. Contrast enhanced CT examination of the chest is recommended. 2. Filling defect in the urinary bladder representing either a mass, blood, or a combination of both. Urological consultation is recommended. 3. Cholelithiasis. 4. Chronic changes and other findings as described above. Electronically Signed by Marciano Almanza DO 08/17/2019 11:43 A
[2019-08-17 11:06] LABS: ALBUMIN 3.7 GM/DL (3.2-5.2); ALT/SGPT 20 U/L (12-78); BILIRUBIN,DIRECT < 0.1 MG/DL (0.0-0.2); BILIRUBIN,TOTAL 0.4 MG/DL (0.2-1.0); LIPASE 104 U/L (73-393); TOTAL PROTEIN 8.3 GM/DL (6.4-8.2)
[2019-08-17 11:07] LABS: MONO # 6.1 10^3/uL (0.0-0.8)
[2019-08-17] MEDS ORDERED: NS 500 ML IV ONE (11:30)
[2019-08-17] MEDS ORDERED: PIPERACILLIN/TAZOBACTAM SOD 3.375 GM in D5W MINI-BAG PLUS 50 ML IV ONE (11:30)
[2019-08-17] MEDS ORDERED: NS 1,000 ML IV ONE (11:30)
[2019-08-17] MEDS ORDERED: LevoFLOXacin IV 500 MG in IV 1 EA IV ONE (11:30)
--- NOTE | 2019-08-17 11:42 | HPEPDOC ---
[facility] Medical History & Physical Date of Admission Aug 17, 2019 Date of Service: Aug 17, 2019 History and Physical CHIEF COMPLAINT: Hematuria/UTI HISTORY OF PRESENT ILLNESS: Patient is a 78-year-old male with past medical history dementia, myelodysplastic disorder, never smoker, no family hx of bladder cancer or blood dyscrasias, CKD stage III, chronic macrocytic anemia, hyperlipidemia, hypertension, atherosclerotic heart disease, peripheral vascular disease, CAD, BPH, GERD, dysphagia, setting with hematuria. History was primarily obtained by aid and daughter. He was recently diagnosed with UTI growing Escherichia coli. On 08/02/2019 and treated with nitrofurantoin twice a day for 5 days. He also had a fall a week ago. Two days ago, his aide found that he had blood-tinged urine, which subsequently progressed to clots. She denies any fevers, chills, chest pain, shortness of breath, nausea, vomiting, abdominal pain, any issues with stooling. Review on CT abdomen and pelvis in 2018 does not reveal a bladder mass. In the ED, WBCs 21.6, H&H 11 and 36.3 respectively , MCV 103.1, platelet count 641 which appears to be his baseline hemoglobin, BUN 44, creatinine 2.6 to home. GFR 23, baseline GFR in CK D stage III, urinalysis is positive for blood, negative for nitrates, resident for high leukocyte esterase, PT elevated at 15.2, normal range between 11.8 and 14, INR 1.23. ROS: 10 point review of systems are negative except per above. PMH: See above. PSH: ORIF of right and left hip, cardiac stents, right shoulder surgery Family history: Reviewed and noncontributory Social history: Never smoker, no alcohol, no illicits, He currently resides [facility]. Allergies: NKDA PHYSICAL EXAMINATION: VITAL SIGNS: Please see below. GENERAL: Pleasantly demented elderly male in No distress HEENT: Normocephalic, atraumatic, moist mucous membranes, no pallor NECK: Supple CARDIOVASCULAR EXAMINATION: S1, S2 RESPIRATORY EXAMINATION: CTAB ABDOMINAL EXAMINATION: Soft, nontender, nondistended, positive bowel sounds EXTREMITIES: no edema SKIN: No rash NEUROLOGICAL EXAMINATION: Unable to follow directions PSYCHIATRIC EXAMINATION: Does not have capacity Patient is a 78-year-old male with past medical history dementia, myelodysplastic disorder, CKD stage III, chronic macrocytic anemia, hyperlipidemia, hypertension, atherosclerotic heart disease, peripheral vascular disease, CAD, BPH, GERD, dysphagia, setting with hematuria. # Hematuria: Secondary to new bladder mass versus clots from underlying myelodysplastic disorder, reviewed drug interactions, can consider sertraline with aspirin interaction, however, patient likely to get GI bleeding versus hematuria. Stop aspirin, urology consult, continue pharmacological DVT prophylaxis. Nothing by mouth at midnight, cystoscopy in the a.m. Leukocytosis secondary to dyscrasia versus UTI, continue empiric treatment of Zosyn, follow- up with urine culture. #CAD: Hold aspirin due to Hematuria #Dysplastic disorder: Continue home meds. #LAUREN on CK D: Consider gentle hydration, has underlying CHF with history of CAD, unable to find previous echo records #Dementia: Patient is DNR/DNI, continue home meds, 1 on 1. DVT prophylaxis: Heparin. DNR/DNI Vital Signs Vital Signs Date Time Temp Pulse Resp B/P (MAP) Pulse Ox O2 Delivery O2 Flow Rate FiO2 08/17/19 10:37 96.6 08/17/19 09:50 80 20 132/75 (94) 96 Room Air Laboratory Data Labs 24H Laboratory Tests 2 08/17/19 10:25: Immature Granulocyte % (Auto) 0.7, Neutrophils (%) (Auto) 55.3, Lymphocytes (%) (Auto) 14.3L, Monocytes (%) (Auto) 28.4H, Eosinophils (%) (Auto) 0.8, Basophils (%) (Auto) 0.5, Neutrophils # (Auto) 11.9H, Lymphocytes # (Auto) 3.1, Monocytes # (Auto) 6.1H, Eosinophils # (Auto) 0.2, Basophils # (Auto) 0.1, Nucleated Red Blood Cells % (auto) 0.0, Prothrombin Time 15.2H, Prothromb Time International Ratio 1.23, Activated Partial Thromboplast Time 31.2, Anion Gap 7L, Glomerular Filtration Rate 23.2L, Calcium Level 9.9, Total Bilirubin 0.4, Direct Bilirubin < 0.1, Aspartate Amino Transf (AST/SGOT) 27, Alanine Aminotransferase (ALT/SGPT) 20, Alkaline Phosphatase 126H, Total Protein 8.3H, Albumin 3.7, Albumin/Globulin Ratio 0.80L, Lipase 104 08/17/19 10:36: Urine Color (AGAPITO) REDH, Urine Appearance (AGAPITO) TURBIDH, Urine pH (AGAPITO) 7.5, Urine Specific [place] (AGAPITO) 1.010, Urine Protein 3+H, Bedside Urine Glucose (UA) NEGATIVE, Bedside Urine Ketones (LAB) NEGATIVE, Bedside Urine Blood POSITI VEH, Bedside Urine Nitrite (LAB) NEGATIVE, Bedside Urine Bilirubin (LAB) NEGATIVE, Bedside Urine Urobilinogen (LAB) NORMAL, Bedside Urine Leukocyte Esterase (L POSITIVEH, Urine Sediment Examination UNSPUN, Urine RBC TNTCH, Urine WBC TNTCH, Urine Squamous Epithelial Cells SMALL AMOUNT, Urine Amorphous Sediment SMALL AMOUNTH, Urine Bacteria NONE SEEN, Urine Hyaline Casts NONE SEEN 08/17/19 11:33: CBC/BMP Laboratory Tests 08/17/19 10:25 Microbiology Microbiology 08/17/19 Blood Culture, Received Pending 08/17/19 Urine Culture, Received Pending 08/17/19 Blood Culture, Received Pending Home Medications Scheduled Acetaminophen (Acetaminophen) 325 Mg Tab, 650 MG PO BID Aspirin (Aspirin) 81 Mg Chw, 81 MG PO DAILY Calcium Carbonate/Vitamin D3 (Calcium 600 + Vit D 400 Softgl) 1 Each Capsule, 1 CAP PO BID Cholecalciferol (Vitamin D3) (Vitamin D3) 2,000 Unit Tablet, 2,000 UNIT PO DAILY AT NOON Ferrous Sulfate (Ferrous Sulfate) 325 Mg Tab, 325 MG PO BID 1100 AND 2000 Hydroxyurea (Hydroxyurea) 500 Mg Cap, 500 MG PO Q2D Hydroxyurea (Droxia) 300 Mg Capsule, 300 MG PO Q2D Nitrofurantoin Monohyd/M-Cryst (Macrobid 100 mg Capsule) 100 Mg Capsule, 100 MG PO BID x5 DAYS; PRESCRIBED 08/16/19 Sennosides/Docusate Sodium (Senna-S Tablet) 1 Tab Tab, 2 TAB PO BID Sertraline Hcl (Sertraline HCl) 25 Mg Tab, 25 MG PO DAILY Scheduled PRN Acetaminophen (Acetaminophen) 325 Mg Tablet, 650 MG PO Q4H PRN for PAIN Bisacodyl (Dulcolax) 10 Mg Sup, 10 MG [place] DAILY PRN for CONSTIPATION Magnesium Hydroxide (Milk of Magnesia) 400 Mg/5 Ml Oral.susp, 30 ML PO DAILY PRN for CONSTIPATION Sodium Chloride (Saline Nasal [place]) 88 Ml [place], 1 SPRAY NARES Q4H PRN for NASAL DRYNESS Sodium Phosphate,Borden-Dibasic (Enema [id number]-Az-[id number]) 1 Marissa Marissa, 1 MARISSA [place] DAILY PRN for CONSTIPATION Allergies Coded Allergies: No Known Allergies (Unverified , 04/23/18) A-FIB/CHADSVASC A-FIB History Current/History of A-Fib/PAF?: No NEENA ARMENTA MD Aug 17, 2019 11:42
[2019-08-17] MEDS ORDERED: MOM 30ML SUSPENSION UDC PO PRN (11:45)
[2019-08-17] MEDS ORDERED: MAALOX 30 ML SUSP *UDC PO PRN (11:45)
[2019-08-17] MEDS ORDERED: FLEET ENEMA PR PRN (12:45)
[2019-08-17] MEDS ORDERED: SODIUM CHLORIDE NASAL 0.65% SPRAY BTL (OCEAN) PRN (12:45)
[2019-08-17] MEDS: NS 1,000 ML IV SCH (13:18)
[2019-08-17 13:41] VITALS: BP 118/70
[2019-08-17] MEDS ORDERED: cefTRIAXone SOD 1 GM in D5W MINI-BAG PLUS 50 ML IV SCH (15:00)
--- NOTE | 2019-08-17 16:54 | SMCUROLCON ---
Urology Consultation General Date of Consultation 08/17/19 Reason For Consultation Review on CT abdomen and pelvis 08/17/19 reveal a bladder mass, possible clot, prostate or tumor. History of Present Illness Patient is a 78-year-old male with past medical history dementia, myelodysplastic disorder, never smoker, no family hx of bladder cancer or blood dyscrasias, CKD stage III, chronic macrocytic anemia, hyperlipidemia, hypertension, atherosclerotic heart disease, peripheral vascular disease, CAD, BPH, GERD, dysphagia, setting with hematuria. History was primarily obtained by aid and daughter. He was recently diagnosed with UTI growing Escherichia coli. On 08/02/2019 and treated with nitrofurantoin twice a day for 5 days. He also had a fall a week ago. Two days ago, his aide found that he had blood-tinged urine, which subsequently progressed to clots. She denies any fevers, chills, chest pain, shortness of breath, nausea, vomiting, abdominal pain, any issues with stooling. Medications Current Medications Current Medications Medications (Trade) Dose Ordered Sig/Shalonda Route PRN Reason Start Time Stop Time Status Last Admin Dose Admin Acetaminophen (Tylenol Tab) 650 mg Q4H PRN PO PAIN OR FEVER 08/17/19 11:45 Al Hydrox/Mg Hydrox/Simethicone (Mylanta) 30 ml DAILY PRN PO DYSPEPSIA 08/17/19 11:45 Ceftriaxone Sodium 1 gm/ Dextrose 50 ml @ 100 mls/hr DAILY IV 08/17/19 15:00 08/17/19 12:20 DC Docusate Sodium (Colace) 100 mg BID PO 08/17/19 21:00 Ferrous Sulfate (Ferrous Sulfate) 325 mg BID PO 08/17/19 21:00 Heparin Sodium (Porcine) (Heparin) 5,000 units Q8H SC 08/17/19 22:00 Home Med (Med Rec Complete!) ASDIRECTED XX 08/17/19 10:30 08/17/19 10:33 DC Hydroxyurea (Hydrea) 500 mg Q2D PO 08/18/19 09:00 Magnesium Hydroxide (Milk Of Magnesia) 30 ml DAILY PRN PO CONSTIPATION 08/17/19 11:45 Piperacillin Sod/ Tazobactam Sod 2.25 gm/Dextrose 50 ml @ 100 mls/hr Q8H IV 08/17/19 20:00 08/22/19 19:59 Senna/Docusate Sodium (Senokot S) 2 tab BID PO 08/17/19 21:00 Sertraline HCl (Zoloft) 25 mg DAILY PO 08/18/19 09:00 Sodium Biphosphate/ Sodium Phosphate (Fleet Enema) 1 ea DAILY PRN IA CONSTIPATION 08/17/19 12:45 Sodium Chloride 1,000 ml @ 75 mls/hr [id number] IV 08/17/19 12:00 08/17/19 13:18 Sodium Chloride ([place] Nasal [place]) 1 spray Q4H PRN NA NASAL DRYNESS 08/17/19 12:45 Allergies Allergies: Coded Allergies: No Known Allergies (Unverified , 04/23/18) Review of Systems Neurological: Reports: Other Symptoms (Dementia ) Physical Examination General Exam: Alert, Cooperative, No Acute Distress EYE EXAM: PERRLA ENT EXAM: Atraumatic, Mucous membr. moist/pink, Tongue Midline Neck Exam: Supple Abdomen Exam: Soft, Tenderness, Hepatospenomegaly Vital Signs/I&O Vital Signs Date Time Temp Pulse Resp B/P (MAP) Pulse Ox O2 Delivery O2 Flow Rate FiO2 08/17/19 13:41 97.8 78 16 118/70 (86) 99 Room Air Laboratory Data 24H Labs Laboratory Tests 2 08/17/19 10:25: Immature Granulocyte % (Auto) 0.7, Neutrophils (%) (Auto) 55.3, Lymphocytes (%) (Auto) 14.3L, Monocytes (%) (Auto) 28.4H, Eosinophils (%) (Auto) 0.8, Basophils (%) (Auto) 0.5, Neutrophils # (Auto) 11.9H, Lymphocytes # (Auto) 3.1, Monocytes # (Auto) 6.1H, Eosinophils # (Auto) 0.2, Basophils # (Auto) 0.1, Nucleated Red Blood Cells % (auto) 0.0, Prothrombin Time 15.2H, Prothromb Time International Ratio 1.23, Activated Partial Thromboplast Time 31.2, Anion Gap 7L, Glomerular Filtration Rate 23.2L, Calcium Level 9.9, Total Bilirubin 0.4, Direct Bilirubin < 0.1, Aspartate Amino Transf (AST/SGOT) 27, Alanine Aminotransferase (ALT/SGPT) 20, Alkaline Phosphatase 126H, Total Protein 8.3H, Albumin 3.7, Albumin/Globulin Ratio 0.80L, Lipase 104 08/17/19 10:36: Urine Color (AGAPITO) REDH, Urine Appearance (AGAP[place]O) TURBIDH, Urine pH (AGAPITO) 7.5, Urine Specific [place] (AGAPITO) 1.010, Urine Protein 3+H, Bedside Urine Glucose (UA) NEGATIVE, Bedside Urine Ketones (LAB) NEGATIVE, Bedside Urine Blood POSITIVEH, Bedside Urine Nitrite (LAB) NEGATIVE, Bedside Urine Bilirubin (LAB) NEGATIVE, Bedside Urine Urobilinogen (LAB) NORMAL, Bedside Urine Leukocyte Esterase (L POSITIVEH, Urine Sediment Examination UNSPUN, Urine RBC TNTCH, Urine WBC TNTCH, Urine Squamous Epithelial Cells SMALL AMOUNT, Urine Amorphous Sediment SMALL AMOUNTH, Urine Bacteria NONE SEEN, Urine Hyaline Casts NONE SEEN 08/17/19 11:33: Lactic Acid Level 1.3 CBC/BMP Laboratory Tests 08/17/19 10:25 Microbiology Microbiology 08/17/19 Blood Culture, Received Pending 08/17/19 Urine Culture, Received Pending 08/17/19 Blood Culture, Received Pending Assessment Pt with CT scan consistent with clot in bladder or enlarged prostate. He is having hematuria. I discussed the plan with patient's daughter. Plan NPO after midnight Add on for operating room for exam under anesthesia and cystoscopy with clot evacuation Time Spent on Consult: Time Spent / Consult (Minutes): 30 MARY ARIAS MD Aug 17, 2019 16:54
[2019-08-17] MEDS ORDERED: LIDOCAINE 2% 5ML JELLY UROJET TOP ONE (17:15)
[2019-08-17] MEDS: PIPERACILLIN/TAZOBACTAM SOD 2.25 GM in D5W MINI-BAG PLUS 50 ML IV SCH (20:13)
[2019-08-17] MEDS: FERROUS SULFATE 325MG TAB PO SCH (20:13)
[2019-08-17] MEDS: SENOKOT S TAB PO SCH (20:13)
[2019-08-17] MEDS: DOCUSATE SODIUM 100 MG CAP PO SCH (20:13)
[2019-08-17 22:00] VITALS: BP 92/56
[2019-08-17] MEDS: HEPARIN SOD (PORCINE) 5000 UNITS/ML VIAL SC SCH (22:51)
[2019-08-18 01:45] VITALS: BP 117/64
[2019-08-18] MEDS: PIPERACILLIN/TAZOBACTAM SOD 2.25 GM in D5W MINI-BAG PLUS 50 ML IV SCH ×3 (03:55→22:58)
[2019-08-18] MEDS: NS 1,000 ML IV SCH ×2 (03:55→11:22)
[2019-08-18] MEDS: HEPARIN SOD (PORCINE) 5000 UNITS/ML VIAL SC SCH ×3 (05:01→22:58)
[2019-08-18 06:00] VITALS: BP 96/59
--- NOTE | 2019-08-18 07:10 | IPNPDOC ---
Date Seen The patient was seen on 08/18/19. Progress Note SUBJECTIVE: Patient had no overnight events. He is pleasantly demented and hard of hearing. OBJECTIVE PHYSICAL EXAMINATION: VITAL SIGNS: Please see below. GENERAL: Pleasantly demented elderly male in No distress HEENT: Normocephalic, atraumatic, moist mucous membranes, no pallor NECK: Supple CARDIOVASCULAR EXAMINATION: S1, S2 RESPIRATORY EXAMINATION: CTAB ABDOMINAL EXAMINATION: Soft, nontender, nondistended, positive bowel sounds, no [place] EXTREMITIES: no edema SKIN: No rash NEUROLOGICAL EXAMINATION: Unable to follow directions PSYCHIATRIC EXAMINATION: Does not have capacity Patient is a 78-year-old male with past medical history dementia, my elodysplastic disorder, CKD stage III, chronic macrocytic anemia, hyperlipidemia, hypertension, atherosclerotic heart disease, peripheral vascular disease, CAD, BPH, GERD, dysphagia, setting with hematuria. NPO, plan for cystoscopy on 08/18/2019. # Hematuria: Secondary to new bladder mass versus clots from underlying myelodysplastic disorder, reviewed drug interactions, can consider sertraline w ith aspirin interaction, however, patient likely to get GI bleeding versus hematuria. Stop aspirin, urology consulted, continue pharmacological DVT prophylaxis. Nothing by mouth at midnight, cystoscopy in the a.m. Leukocytosis secondary to dyscrasia versus UTI, continue empiric treatment of Zosyn, follow- up with urine culture. #. Anemia: Hemoglobin decreased from 11 to 9, vital signs stable, patient is not tachycardic, map greater than 65, will reevaluate CBC tomorrow, if hemoglobin 7 or less, will transfuse with 2 units of RBCs. #CAD: Hold aspirin due to Hematuria #Dysplastic disorder: Continue home meds. #LAUREN on CK D: Consider gentle hydration, has underlying CHF with history of CAD, unable to find previous echo records #Dementia: Patient is DNR/DNI, continue home meds, 1 on 1, fall precautions. DVT prophylaxis: Heparin. DNR/DNI Dispo: Issac Stanton 08/19/19 VS, I&O, 24H, [place] Vital Signs/I&O Vital Signs Date Time Temp Pulse Resp B/P (MAP) Pulse Ox O2 Delivery O2 Flow Rate FiO2 08/18/19 06:00 97.4 80 18 96/59 (71) 93 Room Air I&O- Last 24 Hours up to 6 AM 08/18/19 05:59 Intake Total 430 ml Balance 430 ml Laboratory Data 24H LABS Laboratory Tests 2 08/17/19 10:25: Immature Granulocyte % (Auto) 0.7, Neutrophils (%) (Auto) 55.3, Lymphocytes (%) (Auto) 14.3L, Monocytes (%) (Auto) 28.4H, Eosinophils (%) (Auto) 0.8, Basophils (%) (Auto) 0.5, Neutrophils # (Auto) 11.9H, Lymphocytes # (Auto) 3.1, Monocytes # (Auto) 6.1H, Eosinophils # (Auto) 0.2, Basophils # (Auto) 0.1, Nucleated Red Blood Cells % (auto) 0.0, Prothrombin Time 15.2H, Prothromb Time International Ratio 1.23, Activated Partial Thromboplast Time 31.2, Anion Gap 7L, Glomerular Filtration Rate 23.2L, Calcium Level 9.9, Total Bilirubin 0.4, Direct Bilirubin < 0.1, Aspartate Amino Transf (AST/SGOT) 27, Alanine Aminotransferase (ALT/SGPT) 20, Alkaline Phosphatase 126H, Total Protein 8.3H, Albumin 3.7, Albumin/Globulin Ratio 0.80L, Lipase 104 08/17/19 10:36: Urine Color (AGAPITO) REDH, Urine Appearance (AGAPITO) TURBIDH, Urine pH (AGAPITO) 7.5, Urine Specific [place] (AGAPITO) 1.010, Urine Protein 3+H, Bedside Urine Glucose (UA) NEGATIVE, Bedside Urine Ketones (LAB) NEGATIVE, Bedside Urine Blood POSITIVEH, Bedside Urine Nitrite (LAB) NEGATIVE, Bedside Urine Bilirubin (LAB) NEGATIVE, Bedside Urine Urobilinogen (LAB) NORMAL, Bedside Urine Leukocyte Esterase (L POSITIVEH, Urine Sediment Examination UNSPUN, Urine RBC TNTCH, Urine WBC TNTCH, Urine Squamous Epithelial Cells SMALL AMOUNT, Urine Amorphous Sediment SMALL AMOUNTH, Urine Bacteria NONE SEEN, Urine Hyaline Casts NONE SEEN 08/17/19 11:33: Lactic Acid Level 1.3 CBC/BMP Laboratory Tests 08/17/19 10:25 Microbiology Microbiology 08/17/19 Blood Culture, Received Pending 08/17/19 Urine Culture, Received Pending 08/17/19 Blood Culture, Received Pending NEENA ARMENTA MD Aug 18, 2019 07:10
[2019-08-18 08:07] LABS: CALCIUM LEVEL 8.5 MG/DL (8.8-10.2); CREATININE FOR GFR 2.57 MG/DL (0.70-1.30); GLOMERULAR FILTRATION RATE 25.8 (>42); POTASSIUM SERUM 3.6 MEQ/L (3.5-5.1)
[2019-08-18] MEDS: DOCUSATE SODIUM 100 MG CAP PO SCH ×2 (08:40→21:00)
[2019-08-18] MEDS: FERROUS SULFATE 325MG TAB PO SCH ×2 (08:40→22:58)
[2019-08-18] MEDS: HYDROXYUREA 500 MG CAP PO SCH (08:40)
[2019-08-18] MEDS: SENOKOT S TAB PO SCH ×2 (08:40→21:00)
[2019-08-18] MEDS: SERTRALINE HCL 25 MG TABLET PO SCH (08:40)
[2019-08-18 08:46] LABS: HEMOGLOBIN 9.4 g/dl (13.5-17.5); MEAN CORPUSCULAR HEMOGLOBIN 31.5 pg (27.0-33.0); MEAN CORPUSCULAR HGB CONC 30.3 g/dl (32.0-36.5); PLATELET COUNT, AUTOMATED 554 10^3/uL (150-450); RED BLOOD COUNT 2.98 10^6/uL (4.30-6.10); WHITE BLOOD COUNT 17.8 10^3/uL (4.0-10.0)
[2019-08-18 14:09] VITALS: BP 112/66
[2019-08-18] MEDS ORDERED: dexameTHASONE 4 MG/ML 1ML VIAL (J1100) As Ordered ONE (19:20)
[2019-08-18] MEDS ORDERED: ROCURONIUM BROMIDE 50 MG/5 ML VIAL As Ordered ONE (19:20)
[2019-08-18] MEDS ORDERED: ONDANSETRON 4MG/2ML VIAL (J2405) As Ordered ONE (19:20)
[2019-08-18] MEDS ORDERED: LIDOCAINE 2% INJ 100 MG/5 ML SDV (FOR ANES.) As Ordered ONE (19:20)
[2019-08-18] MEDS ORDERED: PROPOFOL 200 MG/20 ML VIAL As Ordered ONE ×2 (19:20→19:33)
[2019-08-18] MEDS ORDERED: METOCLOPRAMIDE INJ 10MG/2ML VIAL (J2765) As Ordered ONE (19:20)
[2019-08-18] MEDS ORDERED: fentaNYL 100 MCG/2 ML INJECTION (J3010) As Ordered ONE ×2 (19:20→19:33)
[2019-08-18] MEDS ORDERED: ePHEDrine SULFATE 25 MG/5 ML(5MG/ML) SYRINGE As Ordered ONE (19:21)
[2019-08-18] MEDS ORDERED: PHENYLephrine HCL 500 MCG/5 ML (100MCG/ML) SYRINGE (J2370) As Ordered ONE (19:21)
[2019-08-18] MEDS ORDERED: ESMOLOL INJ 100MG/10ML VIAL As Ordered ONE (19:36)
[2019-08-18] MEDS ORDERED: SUGAMMADEX SODIUM 500 MG/5 ML VIAL (BRIDION) As Ordered ONE (19:49)
[2019-08-18] MEDS ORDERED: fentaNYL 100 MCG/2 ML INJECTION (J3010) IV PRN (20:30)
[2019-08-18] MEDS ORDERED: oxyCODONE 5MG TAB PO PRN (20:30)
[2019-08-18] MEDS ORDERED: LR 1,000 ML IV SCH (20:30)
[2019-08-18] MEDS ORDERED: ONDANSETRON 4MG/2ML VIAL (J2405) IV PRN (20:30)
[2019-08-18] MEDS ORDERED: LABETALOL HCL 100 MG/20 ML VIAL As Ordered ONE (20:36)
[2019-08-18] MEDS ORDERED: LABETALOL HCL 100 MG/20 ML VIAL IV PRN (21:00)
[2019-08-18] MEDS: LR 1,000 ML IV SCH (21:30)
[2019-08-18 21:45] VITALS: BP 156/91
--- NOTE | 2019-08-18 22:02 | ROOPDOC ---
[facility] Report Of Operation Report of Operation DATE OF PROCEDURE: 08/18/19 PREPROCEDURE DIAGNOSES: Hematuria and CT scan demonstrating mass in the bladder. POSTPROCEDURE DIAGNOSES: Same. PROCEDURE: Cystoscopy with clot evacuation. SURGEON: MD Brandi SALES COMPENSATION ANALYST: Zahida, ANESTHESIA: Gen. with LMA. ESTIMATED BLOOD LOSS: Approximately minimal mL. COMPLICATIONS: None. REMARKS: . PROCEDURE NOTE: Patient 78-year-old gentleman with dementia living in a prison. He was evaluated emergency room noted to have hematuria. CT scan demonstrating a mass in the bladder could not be determined if this was his prostate, clot or bladder tumor. DESCRIPTION OF PROCEDURE: Procedure was explained to the patient's daughter, she signed the consent form. All questions were answered to her satisfaction. Patient is brought to procedure room. All timeouts were performed. Patient was given general anesthesia with LMA, prepped and draped in a standard fashion place in lithotomy position. A 21 Greek cystoscope was placed through the urethra. A large prostate was noted. Due to prior hip surgery we were unable to spread patient's leg. This made it difficult to cannulate the urethra and place the scope into the bladder. Upon placing the scope in the bladder. A clot was immediately seen. It was evacuated using the Lovelogica evacuator. The bladder was noted to be quite friable. No obvious place of bleeding was noted. However, it appeared to be continually oozing from somewhere that could not be identified. Bladder was irrigated until nearly clear and all clots were removed. Cystoscope was then removed while the with the bladder empty. Abdomen was palpated several times throughout the procedure and was soft. Patient was properly washed off, taken out of lithotomy position, awakened from anesthesia and taken to recovery room. I met with the patient's daughter and explained intraoperative findings. MARY ARIAS MD Aug 18, 2019 22:02
[2019-08-18] MEDS: ACETAMINOPHEN TAB 650MG DOSE (2X325MG) PO PRN (22:58)
[2019-08-18 23:15] VITALS: BP 149/92
[2019-08-19 00:15] VITALS: BP 139/74
[2019-08-19 01:14] VITALS: BP 128/90
[2019-08-19] MEDS ORDERED: OLANZapine 2.5MG TABLET PO ONE (01:30)
[2019-08-19 02:30] VITALS: BP 127/81
[2019-08-19 02:48] LABS: CALCIUM LEVEL 8.1 MG/DL (8.8-10.2); CK-MB VALUE MASS 3.7 NG/ML (<3.6); CREATININE FOR GFR 2.85 MG/DL (0.70-1.30); GLOMERULAR FILTRATION RATE 22.9 (>42); MB/CK RELATIVE INDEX 4.35 (< OR =4); POTASSIUM SERUM 4.4 MEQ/L (3.5-5.1); TROPONIN I 0.02 NG/ML (< 0.10)
[2019-08-19] MEDS: PIPERACILLIN/TAZOBACTAM SOD 2.25 GM in D5W MINI-BAG PLUS 50 ML IV SCH (05:04)
[2019-08-19] MEDS: HEPARIN SOD (PORCINE) 5000 UNITS/ML VIAL SC SCH ×3 (05:04→21:15)
[2019-08-19 06:35] LABS: RED BLOOD COUNT 2.55 10^6/uL (4.30-6.10); WHITE BLOOD COUNT 35.1 10^3/uL (4.0-10.0)
[2019-08-19 06:36] LABS: HEMATOCRIT 26.3 % (42.0-52.0); MEAN CORPUSCULAR HEMOGLOBIN 31.4 pg (27.0-33.0); MEAN CORPUSCULAR HGB CONC 30.4 g/dl (32.0-36.5); MEAN CORPUSCULAR VOLUME 103.1 fl (80.0-96.0); PLATELET COUNT, AUTOMATED 629 10^3/uL (150-450)
[2019-08-19 06:43] LABS: CALCIUM LEVEL 8.2 MG/DL (8.8-10.2); CREATININE FOR GFR 2.98 MG/DL (0.70-1.30); GLOMERULAR FILTRATION RATE 21.8 (>42)
[2019-08-19] MEDS: LR 1,000 ML IV SCH ×2 (07:30→17:30)
[2019-08-19 08:12] LABS: HEMATOCRIT 26.2 % (42.0-52.0); MEAN CORPUSCULAR HEMOGLOBIN 32.1 pg (27.0-33.0); MEAN CORPUSCULAR HGB CONC 30.5 g/dl (32.0-36.5); MEAN CORPUSCULAR VOLUME 105.2 fl (80.0-96.0); PLATELET COUNT, AUTOMATED 655 10^3/uL (150-450); RED BLOOD COUNT 2.49 10^6/uL (4.30-6.10)
[2019-08-19 08:14] LABS: WHITE BLOOD COUNT 36.3 10^3/uL (4.0-10.0)
[2019-08-19 08:32] LABS: ANISOCYTOSIS 2+; BASOPHILS 1 % (0-1); MONOCYTES 9 % (0-5); NEUTROPHILS 89 % (28-66); PLATELET ESTIMATE INCREASED (NORMAL)
[2019-08-19 08:33] LABS: ERYTHROCYTE SEDIMENTATION RATE 72 mm/hr (0-20)
[2019-08-19] MEDS: SERTRALINE HCL 25 MG TABLET PO SCH (09:38)
[2019-08-19] MEDS: FERROUS SULFATE 325MG TAB PO SCH ×2 (09:38→21:14)
[2019-08-19 10:00] VITALS: BP 140/74
--- NOTE | 2019-08-19 10:32 | REP ---
Clinical: Leukocytosis . Comparison: 08/14/2018 . Findings: The mediastinum and cardiac silhouette are stable and within normal limits for portable technique. The lung tirado demonstrate chronic interstitial changes without acute consolidation, effusion, or pneumothorax. Skeletal structures are intact. Impression: No acute cardiopulmonary process appreciated. Electronically Signed by Dale Rendon MD 08/19/2019 10:24 A
[2019-08-19 14:00] VITALS: BP 128/80
[2019-08-19] MEDS: LACTOBACILLUS ACIDOPHILUS CAP (BACID) PO SCH (17:49)
--- NOTE | 2019-08-19 20:22 | CR ---
DATE OF CONSULTATION: 08/19/2019 REQUESTING PHYSICIAN: Maye Maldonado MD CONSULTING PHYSICIAN: Prabha Ronquillo MD REASON FOR CONSULTATION: Management of acute kidney injury superimposed on chronic kidney disease. CHIEF COMPLAINT: The patient was admitted on 08/17/2019 with hematuria. NOTE: History was obtained from the patient's chart and from the medical team. The patient is unable to provide any reliable history. HISTORY OF PRESENT ILLNESS: Juan Alcala is a 78-year-old male with past medical history of chronic kidney disease stage III with a baseline creatinine of around 1.9, history of dementia, myelodysplastic disorders, multiple other comorbidities as mentioned below. Home health aide found that the patient was passing blood in the urine so patient was brought to the emergency room for further evaluation. He got a CT scan done which showed a clot versus a mass in the bladder. He was admitted under the hospitalist service for hematuria and acute kidney injury superimposed on chronic kidney disease. His creatinine on admission was 2.8. He had a cystoscopy with clot evacuation on 08/18/2019. Patient's renal function has not improved despite cystoscopy, clot evacuation, and IV fluid hydration. Creatinine is up to 2.9 today. Nephrology service was called for further help in the management of this patient. I saw and evaluated this patient today morning at the bedside. He was laying in the bed, eyes closed, does not follow commands. Does not want to communicate or cooperate for the exam. There was one-to-one observation person in the room. I could not get much history out of the patient. PAST MEDICAL HISTORY: Past medical history of chronic kidney disease stage III, best baseline creatinine of 1.7, history of dementia, myelodysplastic disorder, hyperlipidemia, hypertension, atherosclerotic heart disease, peripheral vascular disease, BPH, gastroesophageal reflux disease. PAST SURGICAL HISTORY: Status post open reduction internal fixation of the right and left hip, cardiac stents in the past, right shoulder surgery and status post cystoscopy and clot evacuation that was done yesterday. ALLERGIES: No known drug allergies. FAMILY HISTORY: No significant family history of end-stage renal disease requiring hemodialysis. SOCIAL HISTORY: The patient is a resident of [facility]. There is no history of smoking, illicit drug abuse or alcohol abuse. REVIEW OF SYSTEMS: I was unable to take any reliable review of systems from the patient. he is uncooperative. PHYSICAL EXAMINATION: General: The patient is laying in the bed, eyes are closed, otherwise he is awake, does not want to follow commands. Vital signs: Temperature is 98.9 degrees Fahrenheit, blood pressure 140/74, pulse is 101, respiratory rate of 18, saturating 96% on room air. Head and neck exam: Pupils are equally round and reactive to light. Mucous membranes are moist. Neck is supple. There is no JVD. Cardiovascular: S1, S2, regular rate. No edema of the bilateral lower extremities. Respiratory: Chest is clear to auscultation bilaterally. No active rales or rhonchi were noted. Abdomen: Soft, positive bowel sounds. Bladder is not palpable. No Molina catheter was noted. Musculoskeletal: No clubbing or cyanosis. Pulses are 2+. DIE PRESSER: The patient does not follow commands and he is laying in the bed on right side. Neurologic exam was limited because of the patient's non-cooperation. LABORATORY REVIEW: CBC showed WBC 36.3, hemoglobin is 8, platelets are 655, INR 1.23. Urinalysis done on admission was turbid with 3+ protein and blood. BMP done on arrival showed a creatinine of 2.8. BMP done today morning showed sodium 142, potassium is 4, chloride 112, bicarbonate 22, BUN 36, creatinine is 2.9, calcium 8.2, C-reactive protein 1.5. Microbiology: Urine culture done on 08/17/2019 is positive for Escherichia (E) coli which showed 30,000 colonies and it is pansensitive. Blood culture is negative. IMAGING STUDIES: Chest x-ray done today showed no acute cardiopulmonary process. CURRENT INPATIENT MEDICATIONS: The patient's medications were all reviewed by me. He was on Ringer's lactate at 100 mL an hour. Zosyn has been stopped. He is on Tylenol as needed for fever, Mylanta as needed. He is on Augmentin 500 mg by mouth twice a day, iron tablet 324 mg by mouth twice a day, heparin subcutaneous every 8 hours, hydroxyurea 500 mg every other day, milk of magnesium, olanzapine 2.5 mg by mouth, one dose, Zoloft 25 mg by mouth daily. He was also on Fleet enema which I have stopped. ASSESSMENT: 78-year-old male with a past medical history of chronic kidney disease stage III, admitted at this time with clot in the bladder status post clot evacuation yesterday. Nephrology service following the patient for acute kidney injury superimposed on chronic kidney disease. PLAN: 1. Acute kidney injury superimposed on chronic kidney disease stage III. Most likely secondary to dehydration volume depletion. Clot has been already evacuated. I got the bedside bladder scan done which showed less than 40 mL of urine. The patient is voiding large amounts of urine. No need of Molina catheter placement at this time. Okay to continue IV hydration with the Ringer's lactate at this time. 2. Hematuria and blood clots. The patient is status post clot evacuation. Anticoagulation and antiplatelets are on hold. Rest of the management is as per urology. 3. Non-anion gap metabolic acidosis. It is secondary to acute renal failure. Patient is already getting Ringer's lactate which helps with acidosis as well. Bicarbonate level is improving. No need of oral or IV bicarbonate administration. 4. Myelodysplastic syndrome. The patient is currently on hydroxyurea. Management is as per hematology/oncology. 5. Escherichia (E) coli urinary tract infection. The patient was already getting antibiotics as outpatient. He is getting Augmentin at this time which should adequately cover the E. coli as well. Thank you for involving me in the care of this patient. I shall be happy to follow the patient along with you tomorrow morning.
--- NOTE | 2019-08-19 20:32 | ECGEPIP ---
[facility] Test Date: 2019-08-19 Pat Name: PASQUALE AGUSTIN Department: Room: [place] [address] Gender: Male Process Automation Engineer: : [id number] Requested By: CRISTIANO GUIDO Order Number: [id number] Reading MD: Jai Henry Measurements Intervals [place] Rate: 121 P: 110 DC: 234 QRS: 93 QRSD: 146 T: -6 QT: 352 QTc: 501 Interpretive Statements SUPRAVENTRICULAR TACHYCARDIA RIGHT BUNDLE BRANCH BLOCK MODERATE T-WAVE ABNORMALITY, CONSIDER ISCHEMIA SINCE 08/16/2019 HR IS FASTER AND RHYTHM MAY NOT BE SINUS Electronically Signed on 08-19-2019 20:32:09 EST by Jai Henry
[2019-08-19 21:10] VITALS: BP 111/67
[2019-08-19] MEDS: ACETAMINOPHEN TAB 650MG DOSE (2X325MG) PO PRN (21:15)
[2019-08-19] MEDS: AUGMENTIN 500 MG TAB PO SCH (21:15)
--- NOTE | 2019-08-19 23:28 | IPN ---
DATE: 08/19/2019 The patient remains tachycardiac, had no complaints of palpitations, lightheadedness or dizziness. The patient denies any recurrent hematuria. Denies any fever or chills overnight. Denies any abdominal pain. The patient is status post cystoscopy with evacuation of clots yesterday. Renal function has not returned to normal. White count is elevated at 36.3. The patient had been on bowel regimen and had three bowel movements yesterday. Temperature 98.1, pulse 119, sinus respiratory rate 19, blood pressure 127/81, 97% on room air. Generally, awake, alert, oriented to himself only. No jugular venous distension (JVD), no thyromegaly. Edentulous, but with dry mucous membranes. Lungs: Diminished, but clear to auscultation. No wheezing, rales or rhonchi. Heart: S1, S2. Sinus tachycardia. Abdomen is soft, nontender, nondistended. Extremities: No cyanosis, clubbing or any pitting edema. LABORATORY DATA: White count 36.3, hemoglobin 8, hematocrit 26, platelet count 655. Sodium 142, potassium 4, chloride 112, bicarbonate 22, BUN 36, creatinine 2.98, glucose of 186. C-reactive protein (CRP) 1.5, troponin 0.02. Procalcitonin is pending. Urine culture: E. Coli that is pansensitive. ASSESSMENT AND PLAN: This is a 78-year-old male with history of dementia, myelodysplastic disorder on chronic Hydrea, sees Dr. Katie Price. Never smoked cigarettes or family history of bladder cancer, has chronic kidney stage III, baseline creatinine 1.71 to 1.9, microcytic anemia, hyperlipidemia, hypertension, peripheral vascular disease, benign prostatic hypertrophy (BPH) and dysphagia, presents to the emergency room with hematuria, found by an aide to have blood tinged urine with clots. In the emergency room (ER), he was found to have worsening creatinine of 2.6 with baseline of 1.7 to1.9. Usually chronic kidney stage III, now at stage IV. The patient was treated with IV Zosyn, renal dosing IV fluids, underwent cystoscopy with evacuation of clots. Hydrea is changed to 50% of usual doses, 500 mg every second day. No other nephrotoxins have been noted. ACTIVE ISSUES ARE FOLLOWS: 1. Acute on chronic renal failure, currently at stage IV with baseline stage III renal failure, most likely postobstructive secondary to clots. Status post cystoscopy and clot evacuation 08/[address] Paz, urologist. The patient is maintained on IV fluids 100 mL per hour. Career Services Representative has been consulted, Dr. Ronquillo, for assistance in his worsening renal failure. He currently denies any shortness of breath. No metabolic acidosis and no hyperkalemia. 2. Escherichia coli urinary tract infection. The patient is currently on IV Zosyn. Sensitivity result is pansensitive with no resistance. Will discontinue and deescalate the patient's antibiotics. 3. Leukocytosis. The patient did have three loose bowel movements, but was on bowel regimen. Unable to check a Clostridium difficile due to possible colonization and false/positive result. Will continue to monitor for now, Bacid as needed. Urine was positive for urinary tract infection (UTI). De-escalating antibiotics from Zosyn to Augmentin. 4. Dementia. At baseline mentation, only awake, alert and oriented to himself. 5. Chronic anemia on ferrous sulfate supplementation. 6. History of myelodysplastic disorder with thrombocytosis on renally dosed Hydrea. 7. Hyperlipidemia is stable. Hypertension is stable. 8. History of peripheral vascular disease. No acute issues. 9. Deep vein thrombosis (DVT) prophylaxis with heparin subcutaneous. MTDD
[2019-08-20] VITALS (15 sets, daily range): BP systolic 112–133; BP diastolic 59–77
[2019-08-20] MEDS: HEPARIN SOD (PORCINE) 5000 UNITS/ML VIAL SC SCH (05:19)
[2019-08-20] MEDS: LR 1,000 ML IV SCH ×2 (05:19→14:12)
[2019-08-20 06:03] LABS: HEMATOCRIT 21.4 % (42.0-52.0); MEAN CORPUSCULAR HEMOGLOBIN 31.9 pg (27.0-33.0); MEAN CORPUSCULAR HGB CONC 30.8 g/dl (32.0-36.5); MEAN CORPUSCULAR VOLUME 103.4 fl (80.0-96.0); PLATELET COUNT, AUTOMATED 575 10^3/uL (150-450); RED BLOOD COUNT 2.07 10^6/uL (4.30-6.10); WHITE BLOOD COUNT 29.3 10^3/uL (4.0-10.0)
[2019-08-20 06:10] LABS: HEMOGLOBIN 6.6 g/dl (13.5-17.5)
[2019-08-20 06:26] LABS: CALCIUM LEVEL 7.7 MG/DL (8.8-10.2); CREATININE FOR GFR 3.27 MG/DL (0.70-1.30); GLOMERULAR FILTRATION RATE 19.6 (>42); POTASSIUM SERUM 3.7 MEQ/L (3.5-5.1)
--- NOTE | 2019-08-20 08:02 | RO ---
DATE OF PROCEDURE: 08/17/2019 PREOPERATIVE DIAGNOSES: Bladder mass, suspicious of being a clot, enlarged prostate. POSTOPERATIVE DIAGNOSES: Bladder mass, suspicious of being a clot, enlarged prostate. PROCEDURE: Cystoscopy with clot evacuation. SURGEON: Lev Paz MD EPIC SPECIALIST: None. ANESTHESIA: General with laryngeal mask airway (LMA). COMPLICATIONS: None. ESTIMATED BLOOD LOSS: Minimal. INDICATION FOR PROCEDURE: Patient is a 78-year-old gentleman who was admitted to the hospital on 08/17/2019 with a high grade temperature and gross hematuria, low urine output and dementia. The patient had a CT scan in the operating room which showed a bladder mass with thickened wall bladder. To assist the patient with voiding and ensure that this patient did not have a significant bladder mass and significant bleeding in his bladder, the patient was brought to the operating room for cystoscopy with clot evacuation. The patient identified himself. His daughter signed the consent form. He met with anesthesia. The risks, benefits and complications were discussed with the patient's daughter. The patient was brought into the procedure room/operating room, first timeout was performed. Patient was given anesthesia, placed in lithotomy position, properly washed off. Due to a hip injury of his right leg, we were unable to extend his legs out wide. Second timeout was performed. A 21 Romanian cystoscope was placed through the patient's bladder and urethra with difficult to pass through the prostate. Upon inspection of the bladder, there was noted to be bleeding and friable areas, and probably about maybe 75 mL of clot was evacuated using an Ellik evacuator and once the clots were removed, the bladder was inspected, and no true obvious source of bleeding was identified. No bladder tumors were noted. The bladder appeared to be friable, everyplace you touched it just oozed. We continued to irrigate the bladder, put fluid under pressure to see if we could get a better inspection of the bladder and see if there was a place where it was bleeding that could be fulgurated and none was identified. We then drained the bladder and removed the cystoscope. The patient was then awakened from anesthesia, taken out of lithotomy position. Prior to that he was properly washed off. He was taken to the recovery room and recovered fine. HENRI
[2019-08-20 08:08] LABS: HEMOGLOBIN 6.6 g/dl (13.5-17.5)
[2019-08-20] MEDS: FERROUS SULFATE 325MG TAB PO SCH ×3 (08:53→21:29)
[2019-08-20] MEDS: HYDROXYUREA 500 MG CAP PO SCH (08:53)
[2019-08-20] MEDS: LACTOBACILLUS ACIDOPHILUS CAP (BACID) PO SCH ×2 (08:53→18:46)
[2019-08-20] MEDS: AUGMENTIN 500 MG TAB PO SCH ×2 (08:53→21:29)
[2019-08-20] MEDS: SERTRALINE HCL 25 MG TABLET PO SCH (08:53)
[2019-08-20 16:12] LABS: HEMOGLOBIN 8.4 g/dl (13.5-17.5)
[2019-08-20 16:24] LABS: INR 1.38; PROTHROMBIN TIME 16.7 SECONDS (11.8-14.0)
[2019-08-20 16:25] LABS: PARTIAL THROMBOPLASTIN TIME 30.3 SECONDS (25.0-38.4)
--- NOTE | 2019-08-20 16:36 | IPNPDOC ---
Subjective Review oF Systems Chief Complaint The patient is seen at the request of the hospitalist because of persistent hematuria and worsening renal function. He is unable to communicate Events since Last Encounter The patient was seen in consultation by Dr. Paz for evaluation of gross hematuria and CT imaging demonstrating a mass in the bladder. The patient underwent cystoscopy two days ago and was found to have blood clots in the bladder but no obvious source of bleeding. Due to the patients mental status it was recommended not to place a pittman catheter. He has continued to have urethral bleeding and hematuria. He has apparently chronic renal insufficiency with recent worsening on labs. He is anemic. Ct imaging demonstrated no hydronephrosis not renal mass lesion. Objective Physical Examination General Exam: Other (elderly pale male in bed with hand glove restraints bilaterally, unable to communicate) Vital Signs/I&O Vital Signs Date Time Temp Pulse Resp B/P (MAP) Pulse Ox O2 Delivery O2 Flow Rate FiO2 08/20/19 15:17 98.6 81 18 120/77 Nasal Cannula 2.0 08/20/19 12:42 97 I&O- Last 24 Hours up to 6 AM 08/20/19 06:00 Intake Total 1470 ml Balance 1470 ml Laboratory Data Labs 24H Laboratory Tests 2 08/20/19 05:51: Nucleated Red Blood Cells % (auto) 0.0, Anion Gap 5L, Glomerular Filtration Rate 19.6L, Calcium Level 7.7L 08/20/19 15:53: Prothrombin Time 16.7H, Prothromb Time International Ratio 1.38, Activated Partial Thromboplast Time 30.3 CBC/BMP Laboratory Tests 08/20/19 05:51 08/20/19 07:56 08/20/19 15:53 Microbiology Microbiology 08/19/19 Blood Culture - Preliminary, Resulted No growth after 24 hours . All specim... 08/19/19 Blood Culture - Preliminary, Resulted No growth after 24 hours . All specim... 08/17/19 Blood Culture - Preliminary, Resulted No Growth after 72 hours. All specime... 08/17/19 Urine Culture - Final, Complete Escherichia Coli 08/17/19 Blood Culture - Preliminary, Resulted No Growth after 72 hours. All specime... Assessment/Plan Date Seen The patient was seen on 08/20/19. Patient Summary ASSESMENT: 1. persistent gross hematuria, post cystoscopy and clot evacuation from bladder, likely combination of factors including E coli UTI, prostatic hypertrophy. No bladder nor renal lesions identified 2. Anemia, may require transfusion 3. Chronic renal insufficiency with recent exacerbation but no hydronephrosis on recent CT imaging, renal ultrasound today pending' 4. Altered mental status PLAN: 1. I discussed the situation with family member at the bedside. 2. Would recommend close observation. 3. Dr. Paz who performed cystoscopy recommended against pittman catheter placement 4. If hematuria does not improve may need to consider repeat cystoscopy. Plan/VTE VTE Prophylaxis Ordered?: No PASTOR MOYA MD Aug 20, 2019 16:36
--- NOTE | 2019-08-20 18:36 | REPVR ---
PROCEDURE INFORMATION: Exam: US Retroperitoneal Limited, Kidneys Exam date and time: 08/20/2019 6:15 PM Age: 78 years old Clinical history: Other: Hematuria; Additional info: Acute renal failure, h/x of hematuria, patient had cysto 2 days ago TECHNIQUE: Imaging protocol: Real-time ultrasound of the retroperitoneum with image documentation. Examination was focused on the kidneys. COMPARISON: CT ABD PELVIS W/O CONTRAST 08/17/2019 10:07 AM FINDINGS: Right kidney: Right kidney measures 10 x 5.1 x 4.8 cm. Mild hydronephrosis right kidney. Small simple cyst in the upper pole the right kidney measures 7 mm. Left kidney: Left kidney measures 12 x 5.3 5.4 cm. Mild hydronephrosis left kidney. Bladder: There is diffuse thickening of the bladder wall with an ill-defined septated mass in the posterior aspect of the bladder measuring approximately 2.8 x 5.6 cm consistent with a bladder neoplasm. IMPRESSION: 1. There is diffuse thickening of the bladder wall with an ill-defined septated mass in the posterior aspect of the bladder measuring approximately 2.8 x 5.6 cm consistent with a bladder neoplasm. 2. Mild bilateral hydronephrosis likely related to obstruction secondary to the presence of a bladder mass. 3. Small cyst right kidney. COMMENT: Consistent with the [employer]'s Incidental Findings Committee Report (J Am Pradeep Radiol 2010): Unless the patient's specific circumstances suggest otherwise, any liver lesion 0.5 cm or less, any cystic kidney lesion less than 1.0 cm, and/or any adrenal lesion 1.0 cm or less not otherwise characterized in this report as possessing suspicious or indeterminate imaging features is/are highly likely to be benign and do not require follow-up imaging or biopsy. Electronically signed by: Otoniel Vargas On 08/20/2019 18:36:18 PM
--- NOTE | 2019-08-20 20:02 | IPN ---
DATE: 08/20/2019 SUBJECTIVE The patient was seen and examined at the bedside today morning. He a little bit more awake today as compared with yesterday. He still has one-to-one observer in the room. Renal function continues to get worse. Creatinine has bumped up to 3.2. I was told by the nursing staff that the patient is having afshan hematuria again. His hemoglobin has dropped again to 6.6 and the patient complains of lower abdominal pain. Primary team has already ordered a packed red blood cells (PRBC) transfusion and urology service has been called back. OBJECTIVE Vital signs: Temperature is 98.3 degrees Fahrenheit, T max is 100 degrees Fahrenheit early in the morning today. Blood pressure 113/66, pulse is 92, respiratory rate of 18, saturating 92% on nasal cannula at 2 liters. Intake and output: There is no urine output recorded. He has had two incontinent voids, which had afshan blood in them and incontinent bowel movements, two overnight. There is no bed scale weight available. PHYSICAL EXAMINATION General: The patient is awake, oriented times one, laying in bed, in no apparent distress. Head and neck examination: Pupils are equally round and reactive to light. Mucous membranes are moist. Neck is supple. There is no jugular venous distention (JVD). Cardiovascular: S1, S2, regular rate. No edema of the bilateral lower extremities. Respiratory: Chest is clear to auscultation bilaterally. Bilateral equal air entry. No rales or rhonchi. Abdomen: Soft, moderately tender to deep palpation in suprapubic region. No organomegaly was noted. Musculoskeletal: No clubbing or cyanosis. Pulses are 2+. INLAYER SILVER: The patient is oriented times one. He is not very cooperative with the physical exam. Otherwise he moves all extremities. LAB REVIEW: CBC showed a WBC 29.3, hemoglobin is 6.6, platelets are 575. BMP today showed sodium 143, potassium 3.7, chloride 114, bicarb is 24, BUN 33, creatinine is 3.2, it was 2.9 yesterday. Calcium 7.7. Microbiology: Repeat blood cultures from yesterday are negative so far. IMAGING: Renal ultrasound and bladder ultrasound has been ordered, but it has not been done so far. CURRENT INPATIENT MEDICATIONS: The patient continues to be on Ringer's lactate at 100 mL an hour. He continues to be on oral Augmentin. Hydroxyurea dose is currently at 500 mg every other day. No other change in the medications today as compared with yesterday. ASSESSMENT/PLAN 1. Acute kidney injury superimposed on chronic kidney disease. Patient's renal function continues to deteriorate. He recently had clot evacuation from the bladder, but he still has afshan hematuria. Repeat ultrasound results are pending. Most likely etiology is hematuria and probably obstruction. The patient is pending re-evaluation by urology. He is not a candidate for renal replacement therapy given his advanced dementia. Continue the medical management only. Continue IV fluid hydration. 2. Afshan hematuria. Urology is already on board and they will see the patient again. They also recommended doing an ultrasound and decision to do cystoscopy or continuous bladder irrigation is as per urology service. 3. Acute blood loss anemia. Primary team has already ordered the PRBC transfusion. 4. Myelodysplastic syndrome. Continue hydroxyurea 500 mg every other day. 5. Leukocytosis and recent E-coli urinary tract infection. E-coli was pansensitive. The patient is currently getting Augmentin. White cell count is slightly better today as compared with yesterday. Blood cultures are negative so far. [facility]
[2019-08-20 21:16] LABS: HEMATOCRIT 30.8 % (42.0-52.0); HEMOGLOBIN 9.7 g/dl (13.5-17.5)
[2019-08-21] MEDS: LR 1,000 ML IV SCH (04:42)
[2019-08-21 05:57] LABS: HEMATOCRIT 29.1 % (42.0-52.0); HEMOGLOBIN 9.4 g/dl (13.5-17.5); MEAN CORPUSCULAR HEMOGLOBIN 31.3 pg (27.0-33.0); MEAN CORPUSCULAR HGB CONC 32.3 g/dl (32.0-36.5); PLATELET COUNT, AUTOMATED 521 10^3/uL (150-450); WHITE BLOOD COUNT 25.9 10^3/uL (4.0-10.0)
[2019-08-21 06:16] LABS: CREATININE FOR GFR 2.77 MG/DL (0.70-1.30); GLOMERULAR FILTRATION RATE 23.7 (>42); POTASSIUM SERUM 3.8 MEQ/L (3.5-5.1)
[2019-08-21 06:39] VITALS: BP 135/61
[2019-08-21] MEDS: LACTOBACILLUS ACIDOPHILUS CAP (BACID) PO SCH ×2 (08:00→16:16)
[2019-08-21] MEDS: SERTRALINE HCL 25 MG TABLET PO SCH (08:46)
[2019-08-21] MEDS: AUGMENTIN 500 MG TAB PO SCH ×2 (08:46→22:02)
[2019-08-21] MEDS: FERROUS SULFATE 325MG TAB PO SCH ×2 (08:48→22:02)
[2019-08-21 10:06] LABS: HEMATOCRIT 31.6 % (42.0-52.0)
[2019-08-21] MEDS ORDERED: KCL 20MEQ IN D5W 1000ML 1,000 ML IV SCH (11:00)
--- NOTE | 2019-08-21 13:32 | IPNPDOC ---
Subjective Review oF Systems Chief Complaint The patient is a 78-year-old male admitted with a reason for visit of Compression Fracture Of C7 Vertebra. Events since Last Encounter Overnight the degree of hematuria is reported to be less. The patient is afebrile AM labs: hgb/hct is 10.0/ creatinine is 2.77 and BUN is 24 which has diminished since yesterdays labs Renal ultrasound reveled moderate bilateral hydronephrosis and " mass in bladder" representing either blood clot or prostatic hypertrophy with intravesical protrusion Recommendation: I would favor to continue close observation for now. If deemed necessary then return to the OR for cystoscopy and clot evacuation and repeat attempt to identify source of hematuria could be carried out. This is likely not to be successful since he has already undergone this procedure. In addition his anatomy may make it extremely difficult to identify the ureteral orifices in the bladder to perform retrograde pyelography to define hydronephrosis and extremely difficult to place bilateral internal ureteral catheters. Objective Physical Examination General Exam: Other (elderly pale male in bed with hand glove restraints cyn aterally, unable to communicate) Vital Signs/I&O Vital Signs Date Time Temp Pulse Resp B/P (MAP) Pulse Ox O2 Delivery O2 Flow Rate FiO2 08/21/19 06:39 97.8 78 17 135/61 (85) 96 Room Air 08/21/19 03:38 2.0 I&O- Last 24 Hours up to 6 AM 08/21/19 06:00 Intake Total 3080 ml Balance 3080 ml Laboratory Data Labs 24H Laboratory Tests 2 08/20/19 15:53: Prothrombin Time 16.7H, Prothromb Time International Ratio 1.38, Activated Partial Thromboplast Time 30.3 08/21/19 05:31: Nucleated Red Blood Cells % (auto) 0.0, Anion Gap 7L, Glomerular Filtration Rate 23.7L, Calcium Level 8.0L CBC/BMP Laboratory Tests 08/20/19 15:53 08/20/19 20:57 08/21/19 05:31 08/21/19 09:55 Microbiology Microbiology 08/20/19 Stool Occult Blood (KERI) - Final, Complete 08/19/19 Blood Culture - Preliminary, Resulted No Growth after 48 hours. All Specime... 08/19/19 Blood Culture - Preliminary, Resulted No Growth after 48 hours. All Specime... 08/17/19 Blood Culture - Preliminary, Resulted No Growth after 72 hours. All specime... 08/17/19 Urine Culture - Final, Complete Escherichia Coli 08/17/19 Blood Culture - Preliminary, Resulted No Growth after 72 hours. All specime... Assessment/Plan Date Seen The patient was seen on 08/21/19. Plan/VTE VTE Prophylaxis Ordered?: No PASTOR MOYA MD Aug 21, 2019 13:32
[2019-08-21] MEDS: KCL 20MEQ IN D5W 1000ML 1,000 ML IV SCH (14:00)
[2019-08-21 15:30] VITALS: BP 121/61
[2019-08-21] MEDS: ACETAMINOPHEN TAB 650MG DOSE (2X325MG) PO PRN (16:16)
[2019-08-21 17:58] LABS: HEMATOCRIT 31.4 % (42.0-52.0); HEMOGLOBIN 9.8 g/dl (13.5-17.5)
[2019-08-21 18:30] VITALS: BP 120/61
--- NOTE | 2019-08-21 19:26 | REPVR ---
PROCEDURE INFORMATION: Exam: CT Head Without Contrast Exam date and time: 08/21/2019 6:52 PM Age: 78 years old Clinical history: Numbness / parasthesia; Right; Additional info: Right sided paresthesias R/O CVA TECHNIQUE: Imaging protocol: Computed tomography of the head without contrast. Radiation optimization: All CT scans at this facility use at least one of these dose optimization techniques: automated exposure control; mA and/or kV adjustment per patient size (includes targeted exams where dose is matched to clinical indication); or iterative reconstruction. COMPARISON: CT Head without contrast 08/11/2019 2:28 AM FINDINGS: Brain: Nonspecific hypodensities of the periventricular and deep subcortical white matter, most likely secondary to chronic small vessel ischemic change. No intracranial hemorrhage or extra-axial fluid collection. No evidence of mass effect or midline shift. Sotelo-white matter differentiation is normal. Ventricles: Prominence of the ventricles and sulci, most likely attributed to parenchymal volume loss. Bones/joints: No acute osseus lesion or fracture. Sinuses: Unremarkable as visualized. Mastoid air cells: Unremarkable. Soft tissues: Unremarkable. IMPRESSION: 1. No acute intracranial pathology. 2. Other chronic findings, as above. Electronically signed by: Barrett Stephen On 08/21/2019 19:26:10 PM
[2019-08-22] MEDS ORDERED: QUEtiapine FUMARATE 12.5 MG HALF-TAB PO ONE (01:45)
[2019-08-22] MEDS: KCL 20MEQ IN D5W 1000ML 1,000 ML IV SCH ×2 (03:46→17:24)
[2019-08-22 06:00] VITALS: BP 124/63
[2019-08-22 06:02] LABS: HEMATOCRIT 33.3 % (42.0-52.0); HEMOGLOBIN 10.3 g/dl (13.5-17.5); MEAN CORPUSCULAR HEMOGLOBIN 30.6 pg (27.0-33.0); MEAN CORPUSCULAR HGB CONC 30.9 g/dl (32.0-36.5); MEAN CORPUSCULAR VOLUME 98.8 fl (80.0-96.0); PLATELET COUNT, AUTOMATED 494 10^3/uL (150-450); RED BLOOD COUNT 3.37 10^6/uL (4.30-6.10)
[2019-08-22 06:19] LABS: CALCIUM LEVEL 8.1 MG/DL (8.8-10.2); CREATININE FOR GFR 2.4 MG/DL (0.70-1.30); GLOMERULAR FILTRATION RATE 27.9 (>42)
--- NOTE | 2019-08-22 08:29 | IPN ---
DATE: 08/21/2019 Patient continues to have gross hematuria, soaking his diapers at the bedside, status post 3 units red blood cell (RBC) transfusion. He did have a repeat ultrasound showing bilateral hydronephrosis, as well as a bladder mass that is measuring 2.8 x 5.6 cm consistent with a bladder neoplasm. Dr. Segovia has evaluated the patient yesterday and await further recommendations today. The patient is extremely demented .Hgb improved after 3 units of RBCs to 9.7 from 6.6 hemoglobin but currently decreasing again to 9.4. He has a known history of chronic myelodysplastic syndrome with an elevated platelet count and white count. Currently on antibiotics, Augmentin, for a urinary tract infection (UTI) showing Escherichia (E) coli sensitive to ampicillin, ampicillin sulbactam. Patient remains afebrile. Vital Signs: Temperature 97.8, maximum temperature (T max) of 100.0, pulse 78, respiratory rate 17, blood pressure 135/61, 96% on room air. Generally, awake, alert, oriented to person only, extremely confused, disoriented, has mitts on and a sitter at the bedside. Patient has dry mucous membranes. Lungs are clear to auscultation. Heart: S1, S2, sinus rhythm. Abdomen: Soft, nontender, nondistended. Patient's diaper is soaked with blood. Extremities: No cyanosis or clubbing. White count 25.9, hemoglobin 9.4, hematocrit 29, platelet count 521. Sodium 146, potassium 3.8, chloride 116, bicarbonate 23, BUN 24, creatinine 2.77, glucose of 73. ASSESSMENT AND PLAN: This is a 78-year-old male with recurrent gross hematuria with bladder mass noted on repeat ultrasound of the kidneys and bilateral hydronephrosis, underwent cystoscopy on 08/17/2019 with no obvious signs of source of bleeding. There was evacuation of clots by urology. He does have a known history of severe dementia and only oriented to himself, requiring a sitter and mitts at the bedside. He does have myelodysplastic disorder, which he sees our medical oncologist, Dr. Katie Price, on chronic renally dosed Hydrea. Patient has never smoked cigarettes or had a family history of bladder cancer. He has chronic kidney disease, stage III, baseline creatinine of 1.7 to 1.9, currently with a creatinine of 2.7. Patient has received 3 units of RBC transfusion due to gross hematuria and continues to have bleeding at the bedside. ACTIVE ISSUES: 1. Gross hematuria secondary to bladder mass, status post 3 units RBC transfusion with obstructive uropathy. Per Dr. Segovia, may need repeat cystoscopy. Currently with no metabolic acidosis or hyperkalemia. 2. Acute on chronic renal failure stage IV, with baseline of stage III. Slightly improved but still far from his baseline despite IV fluids. Patient has an obstructive cause, potential bladder mass from a neoplasm. Defer to urology. 3. Escherichia (E) coli UTI. On Augmentin. Sensitivity result shows pansensitive with no resistance. Currently on Augmentin. 4. Chronic myelodysplastic syndrome with leukocytosis and thrombocytosis. Patient follows with Dr. Katie Price. Currently on Hydrea, renally dosed. 5. Chronic severe dementia baseline, only oriented to himself. Patient's healthcare proxy is the daughter. 6. Anemia secondary to acute blood loss from gross hematuria. Status post 3 units of RBC transfusion, ferrous sulfate. 7. Dyslipidemia, stable. 8. Hypertension, stable. 9. History of peripheral vascular disease, actively no issues. 10. Acute delirium on top of chronic dementia due to UTI and acute blood loss with gross hematuria, requiring a sitter and mitts at the bedside due to interruption of medical therapy. MTDD
[2019-08-22] MEDS: HYDROXYUREA 500 MG CAP PO SCH ×2 (09:00→09:09)
[2019-08-22] MEDS: SERTRALINE HCL 25 MG TABLET PO SCH (09:09)
[2019-08-22] MEDS: AUGMENTIN 500 MG TAB PO SCH ×2 (09:09→21:33)
[2019-08-22] MEDS: LACTOBACILLUS ACIDOPHILUS CAP (BACID) PO SCH ×2 (09:09→17:23)
[2019-08-22] MEDS: FERROUS SULFATE 325MG TAB PO SCH ×2 (09:09→21:33)
--- NOTE | 2019-08-22 09:29 | IPN ---
DATE OF SERVICE: 08/21/2019 SUBJECTIVE: The patient was seen and examined the bedside today morning. He is sleeping today. He continues to be on intravenous (IV) fluid hydration. There is slight improvement in the renal function. Creatinine dropped from 3.2 to 2.7. However, the renal and bladder ultrasound done yesterday showed moderate amount of bilateral hydronephrosis and a mass in the bladder which is possibly causing obstruction. The patient is hypernatremic today. He continues to be under one-to-one observation, and I was told that patient ate some of his breakfast today morning. OBJECTIVE: Vital signs: Temperature is 97.8 degrees Fahrenheit, blood pressure 135/61, pulse is 78, respiratory rate of 17, saturating 96% on room air. Intake and output: There is no urine output recorded. He had 13 incontinent voids yesterday, three voids so far today since overnight. Weight in the bed scale is not available. PHYSICAL EXAM: General: The patient is laying in the bed sleeping at this time. Head and neck exam: Head is normocephalic, atraumatic. Neck is supple. There is no jugular venous distention (JVD). Cardiovascular: S1, S2, regular rate. No edema of the bilateral lower extremities. Respiratory: Chest is clear to auscultation bilaterally. Bilateral equal air entry. No rales or rhonchi. Abdomen: Soft, positive bowel sounds. He does have moderate amount of tenderness to deep palpation in the suprapubic region. Musculoskeletal: No clubbing or cyanosis. Pulses are 2+. TURKISH LINE ATTENDANT: The patient is sleeping at this time. He has a baseline dementia, and he is usually cooperative with the physical exam. LAB REVIEW: CBC showed a WBC of 25.9, hemoglobin is 10, platelets are 521. BMP showed sodium 146, potassium 3.8, chloride 116, bicarbonate 23, BUN 24, creatinine is 2.7, calcium is 8. IMAGING: A renal ultrasound was done yesterday which showed diffuse thickening of the bladder wall with ill-defined septated mass in the posterior aspect of the bladder measuring 2.8 x 5.6 cm, consistent with a bladder neoplasm. There was mild bilateral hydronephrosis likely related to obstruction. There was a small cyst in the right kidney. CURRENT INPATIENT MEDICATIONS: The patient's medications were all reviewed by me. I have changed the IV fluids to KCl 20 mEq in D5W at 75 mL an hour. He continues to be on Augmentin. Heparin subcu has been stopped because of persistent hematuria. No other change in the medications today as compared with yesterday. ASSESSMENT AND PLAN: 1. Acute kidney injury superimposed on chronic kidney disease. Patient's renal function is slightly better today as compared with yesterday, creatinine is down to 2.7. However, ultrasound is showing bilateral hydronephrosis, most likely is all secondary to mechanical obstruction. 2. Persistent hematuria. The patient is still having hematuria at this time. He has received 3 units of packed red blood cell (PRBC) transfusion so far. Bladder ultrasound is showing possible bladder mass. Decision for repeat cystoscopy is as per urology. 3. Acute blood loss anemia. The patient's hemoglobin is stable. Transfuse as needed for hemoglobin less than 8. 4. Myelodysplastic syndrome. Continue hydroxyurea 500 mg every other day. 5. Persistent leukocytosis. The patient is currently on Augmentin. Blood cultures are all negative. Urine culture initially was positive for Escherichia (E) coli, which is pansensitive. 6. Hypernatremia. Sodium level has bumped up to 146. IV fluids have been changed to potassium containing D5W.
--- NOTE | 2019-08-22 10:49 | IPNPDOC ---
Subjective Review oF Systems Chief Complaint The patient is a 78-year-old male admitted with a reason for visit of Compression Fracture Of C7 Vertebra. Events since Last Encounter The patient's nurse reports that the degree of hematuria is less. Voiding into a diaper. He has been afebrile the last 24 hours. AM labs today show Hgb/Hct to be 10.3/33.3. Creatinine is 2.4, BUN is 22. I spoke over the phone last night with the patient's daughter about the situation. I reassured her that there is no evidence of malignancy causing the hematuria, the 'bladder mass" noted on imaging is either blood clot in the bladder or an enlarged median lobe of the prostate protruding into the bladder. She does not wish to proceed with any aggr essive measures. Objective Physical Examination General Exam: Other (elderly pale male in bed with hand glove restraints bilaterally, unable to communicate) Vital Signs/I&O Vital Signs Date Time Temp Pulse Resp B/P (MAP) Pulse Ox O2 Delivery O2 Flow Rate FiO2 08/22/19 06:00 97.6 77 20 124/63 (83) 97 Room Air 08/21/19 03:38 2.0 I&O- Last 24 Hours up to 6 AM 08/22/19 06:00 Intake Total 2461 ml Balance 2461 ml Laboratory Data Labs 24H Laboratory Tests 2 08/22/19 05:40: Nucleated Red Blood Cells % (auto) 0.0, Anion Gap 6L, Glomerular Filtration Rate 27.9L, Calcium Level 8.1L CBC/BMP Laboratory Tests 08/21/19 17:51 08/22/19 05:40 Microbiology Microbiology 08/20/19 Stool Occult Blood (KERI) - Final, Complete 08/19/19 Blood Culture - Preliminary, Resulted No Growth after 72 hours. All specime... 08/19/19 Blood Culture - Preliminary, Resulted No Growth after 72 hours. All specime... 08/17/19 Blood Culture - Preliminary, Resulted No Growth after 72 hours. All specime... 08/17/19 Urine Culture - Final, Complete Escherichia Coli 08/17/19 Blood Culture - Preliminary, Resulted No Growth after 72 hours. All specime... Assessment/Plan Date Seen The patient was seen on 08/22/19. Plan/VTE VTE Prophylaxis Ordered?: No PASTOR MOYA MD Aug 22, 2019 10:48
--- NOTE | 2019-08-22 12:44 | IPN ---
DATE: 08/22/2019 According to nursing, patient continues to have gross hematuria. Changed his diapers four times yesterday and once this morning. Patient is confused but denies any shortness of breath, chest pain, pressure, tightness, lightheadedness. Afebrile overnight. According to nursing, he was increasingly confused yesterday despite having a sitter. Refused to take his Augmentin last evening. According to sitter at the bedside, patient does much better when he is awake in the morning as opposed to waking him to take his medications. Per the patient's daughter yesterday while she was visiting, patient's eye was twitching, and he was staring into space. CT of the head was negative at that time. Temperature 97.6, pulse 77, respiratory rate 20, blood pressure 124/63, 97% on room air. GENERAL: Patient is awake, alert, oriented to person only. He is cooperative this morning. Has mittens on. Gross hematuria noted on his diaper. LUNGS: Diminished but clear to auscultation. No wheezing or rales. HEART: S1, S2, sinus rhythm. ABDOMEN: Soft, slight tender in the suprapubic area. Bloody diapers. EXTREMITIES: No cyanosis or clubbing. LABORATORY DATA: White count 27, hemoglobin 10, hematocrit 33, platelet count 494. Sodium 139, potassium 4, chloride 110, bicarbonate 6, BUN 22, creatinine 2.4, glucose of 89. Microbiology: Escherichia (E) coli in urine culture August 17, which is pansensitive. ASSESSMENT: A 78-year-old male with severe dementia with recurrent gross hematuria and bladder thickening noted on repeat ultrasound of the kidneys with mild bilateral hydronephrosis. Underwent cystoscopy August 17 with no obvious signs or sources of bleeding. Patient had evacuation of clots at that time, currently being followed by Dr. Segovia, who is not recommending any Molina catheter. Continue with continuous bladder irrigation (CBI). Patient does have a history of myelodysplastic disorder, for which he sees Dr. Katie Price, medical oncologist, chronically renally dosed Hydrea. Patient has never smoked cigarettes or had a family history of bladder cancer. He has chronic kidney disease, stage III, baseline creatinine 1.71-1.9, currently with acute on chronic renal failure and severe blood loss anemia secondary to gross hematuria that required 3 units of red blood cell (RBC) transfusion. 1. Acute blood loss anemia secondary to gross hematuria, status post 3 units RBC transfusion. Hemoglobin and hematocrit remain stable, hemoglobin of 9-10. Defer to urology for any cystoscopy or further evacuation of clots. 2. Gross hematuria with bladder wall thickening and mild hydronephrosis on repeat ultrasound. Defer to urology for any invasive testing. Currently improving creatinine with intravenous (IV) fluid hydration despite ongoing blood loss. 3. Acute on chronic renal failure secondary to obstructive causes with evacuation of clots. Prior cystoscopy August 17. No Molina catheter. CBI per urology. Currently managed by nephrology for IV fluid hydration. No complaint of shortness of breath or fluid overload at this time. 4. Acute on chronic dementia with severe acute delirium secondary to urinary tract infection (UTI), gross hematuria, and currently with a sitter. The patient had refused Augmentin yesterday but appears to be more cooperative this morning. 5. Escherichia (E) coli urinary tract infection, currently on Augmentin renally dosed, managed by pharmacy. 6. Dyslipidemia, stable. 7. Hypertension, stable. 8. Peripheral vascular disease. No issues. MTDD
--- NOTE | 2019-08-22 12:59 | IPN ---
DATE: 08/22/2019 SUBJECTIVE: The patient was seen and examined at the bedside today morning. The patient's mood is slightly better today as compared with yesterday. He is awake. He is playing with a stuffed toy. Renal function continues to improve. Creatinine is down to 2.7 today. As per nursing staff, he continues to have of mild persistent hematuria. The patient continues to be on intravenous (IV) fluid, and sodium level is better today. OBJECTIVE: Vital signs: Temperature is 97.6 degrees Fahrenheit, blood pressure 124/63, pulse is 77, respiratory of 20, saturating 97% on room air. Intake and output: Urine output is not recorded. He had 10 incontinent voids yesterday, one incontinent void so far today since overnight. PHYSICAL EXAMINATION: GENERAL: The patient is awake, alert, oriented times one, sitting up in the bed in no apparent distress. HEAD AND NECK: Extraocular muscles intact. Pupils equally round and reactive to light. Mucous membranes are moist. Neck is supple. There is no jugular venous distention (JVD). CARDIOVASCULAR: S1, S2, regular rate. No edema of the bilateral lower extremities. RESPIRATORY: Chest is clear to auscultation bilaterally. Bilateral equal air entry. No rales or rhonchi. ABDOMEN: Soft, positive bowel sounds. Nontender. No organomegaly. MUSCULOSKELETAL: No clubbing or cyanosis. Pulses are 2+. CENTRAL NERVOUS SYSTEM: No focal deficit apart from baseline dementia. He moves all extremities. LABORATORY REVIEW: CBC showed WBC of 27, hemoglobin is 10.3, platelets of 494. BMP showed sodium 139, potassium 4, chloride 110, bicarbonate 23, BUN 22, creatinine is 2.4; it was 2.7 yesterday. Calcium is 8.1. CURRENT INPATIENT MEDICATIONS: The patient's medications were all reviewed by myself. He is currently on potassium chloride 20 mEq in D5W at 75 mL an hour. He continues to be on oral Augmentin. No other change in the medications today as compared with yesterday. ASSESSMENT AND PLAN: 1. Acute kidney injury superimposed on chronic kidney disease. Patient's renal function is improving. Continue the IV fluid until tonight. Creatinine is down to 2.4. Continue to encourage oral hydration as well. 2. Recurrent persistent hematuria. The patient is being seen by urology as well. He is status post cystoscopy and clot evacuation, and as per their recommendation no further intervention is recommended. Continue close monitoring. 3. Acute blood loss anemia. Hemoglobin level is stable at 10.3. No further need of blood transfusion at this time. 4. Hypernatremia. The patient was given D5W overnight, and sodium level has improved. 5. Myelodysplastic syndrome. Continue hydroxyurea 500 mg every other day. DISPOSITION: Patient's renal function is improving. Electrolytes are within the acceptable range. Nephrology service is going to sign off at this moment. Please call nephrology service for any help in the management of this patient during this hospitalization.
[2019-08-22 14:00] VITALS: BP 143/65
[2019-08-22 22:00] VITALS: BP 120/84
--- NOTE | 2019-08-22 22:22 | IPN ---
DATE: 08/20/2019 The patient is demented and difficult to ask for review of systems this morning, date of service 08/20/2019. According to nursing, the patient continues to have trickle of blood with gross hematuria. His creatinine has not improved and has worsened this morning to creatinine of 3.27 from 2.82. The patient did undergo cystoscopy on 08/17 and had been on antibiotics for Escherichia coli urinary tract infection. This morning his hemoglobin appeared to be much lower at 6.6 with admission hemoglobin of 11. The patient has been transfused 1 out of 3 units of blood this morning and blood consent for a transfusion obtained from the patient's daughter. Urologist, Dr. Segovia, had been reconsulted as Dr. Paz is currently unavailable, who recommended repeating the ultrasound of the kidneys, as Dr. Paz did not find any source of bleeding on 08/17/2019 with recommendations of refraining from putting a Molina catheter in. No continued bladder irrigation. Temperature is 100, T-max current temperature is 98.3, pulse 92, respiratory rate 18, blood pressure 113/66, 92% 2 liters nasal canula. The patient is confused and disoriented. Does not appear to understand questions this morning. He is edentulous with dry mucous membranes. No jugular venous distension (JVD) or thyromegaly. He is cooperative. Lungs are diminished, but clear to auscultation. No wheezes, rales or rhonchi noted. Heart: S1, S2, sinus rhythm, but one episode of sinus tachycardia. Abdomen was soft, tender in the suprapubic area. Extremities: No cyanosis or clubbing. White count 29.3, hemoglobin 6.6, hematocrit 21.4, platelet count of 575. Sodium 143, potassium 3.7, chloride 114, bicarbonate 24, BUN 33, creatinine 3.37, glucose of 92. Previous creatinine was 2.98. ASSESSMENT AND PLAN: This is a 78-year-old demented male with history of myelodysplastic disorder on chronic Hydrea. Sees Dr. Katie Price. Never smoked cigarettes or had a family history of bladder cancer with chronic kidney disease, stage III with baseline creatinine of 1.7 and 1.9, anemia, hyperlipidemia, peripheral vascular disease, benign prostatic hypertrophy (BPH), dysphagia and hypertension, presented with gross hematuria. The patient was found to have blood tinged urine with clots in the emergency room (ER). He was starting to have worsening creatinine of 2.6 with baseline of 1.7 to 1.9, now at stage IV, chronic kidney disease. Initially given intravenous Zosyn for urinary tract infection (UTI), underwent cystoscopy with evacuation of clots with no clear source of bleeding per Dr. Paz, urologist. Nephrology has been consulted for help in management of acute on chronic renal failure and management of fluid balance. IMPRESSION: 1. Acute on chronic renal failure with gross hematuria, most likely post obstructive, status post cystoscopy and clot evacuation by Dr. Paz 08/18/2019, urologist. The patient had been on intravenous fluids, but despite this, creatinine remains elevated and is currently worsening. Per Dr. Segovia, urologist phototypesetting equipment monitor today, he is not recommending any continuous bladder irrigation (CBI) or Molina catheter placement. There was no source of infection. There was no source of active bleeding from previous cystoscopy. He did recommended for us to repeat the renal ultrasound and will evaluate the patient later today and further decide what to do. 2. Escherichia coli urinary tract infection (UTI). The patient was on intravenous Zosyn. Urine culture was sensitive to amoxicillin and currently on Augmentin, renally dosed at 500 mg twice a day with Bacid one tab with meals to decrease risk of Clostridium difficile. The patient is continued on IV fluid for hydration at 100 mL per hour. 3. History of myelodysplastic disorder with thrombocytosis, currently on Hydrea 500 every 2 days, that is renally dosed. 4. Depression on chronic Zoloft. 5. Due to gross hematuria, heparin subcutaneous has been discontinued. He is currently placed on compression stockings. 6. The patient is DO NOT RESUSCITATE/DO NOT INTUBATE. The patient's healthcare proxy is his daughter. The phone number for the healthcare proxy is [phone], Paige Odonnell. [facility] CENTERLesa
[2019-08-23 05:30] LABS: HEMATOCRIT 34.1 % (42.0-52.0); HEMOGLOBIN 10.6 g/dl (13.5-17.5); MEAN CORPUSCULAR HEMOGLOBIN 30.5 pg (27.0-33.0); MEAN CORPUSCULAR HGB CONC 31.1 g/dl (32.0-36.5); PLATELET COUNT, AUTOMATED 526 10^3/uL (150-450); RED BLOOD COUNT 3.48 10^6/uL (4.30-6.10); WHITE BLOOD COUNT 25.5 10^3/uL (4.0-10.0)
[2019-08-23 05:52] LABS: CALCIUM LEVEL 8.5 MG/DL (8.8-10.2); CREATININE FOR GFR 2.02 MG/DL (0.70-1.30); GLOMERULAR FILTRATION RATE 34.1 (>42); POTASSIUM SERUM 4.1 MEQ/L (3.5-5.1)
[2019-08-23 06:00] VITALS: BP 123/80
[2019-08-23] MEDS: LACTOBACILLUS ACIDOPHILUS CAP (BACID) PO SCH ×2 (08:00→18:15)
[2019-08-23] MEDS: SERTRALINE HCL 25 MG TABLET PO SCH (08:00)
[2019-08-23] MEDS: AUGMENTIN 500 MG TAB PO SCH ×2 (08:00→21:11)
[2019-08-23] MEDS: FERROUS SULFATE 325MG TAB PO SCH ×2 (08:00→21:11)
--- NOTE | 2019-08-23 10:07 | IPN ---
DATE: 08/23/2019 SUBJECTIVE: Patient is seen and examined at the bedside. Patient is being fed by an aide. He continues to be very disoriented, only knows his name. He continues to have gross hematuria but hemoglobin and hematocrit appear stable with no requirement for red blood cell transfusion. Currently he denies any shortness of breath, chest pain, pressure, tightness, palpitations, lightheadedness or dizziness. Patient has not been ambulating well and is a [facility] resident. He is afebrile overnight. He is currently agreeable to taking his medications on Augmentin 500 mg twice a day until 08/26/2009. Patient has not had any diarrhea, no complaints of abdominal pain. Still with a little bit of suprapubic tenderness, otherwise creatinine is almost back to his baseline of 1.7 to 1.9, currently at 2.02. No episodes of hyperkalemia, metabolic acidosis or electrolyte abnormalities. Output overnight was not documented as the patient is incontinent. PHYSICAL EXAMINATION: Temperature 98.1, pulse 75, respiratory rate 18, blood pressure 123/80, 97% on room air. Generally awake, alert and oriented to person only, very disoriented. Anicteric sclera. No jaundice. Patient has no icterus, no pallor, no use of respiratory accessory muscles. He is edentulous. No JVD or thyromegaly. Dry mucous membranes. Lungs are clear to auscultation. No wheezing rales, or rhonchi. Heart S1, S2, sinus rhythm. Abdomen is soft, slightly tender, suprapubic tenderness. No CVA tenderness. Extremities, no cyanosis, clubbing, or pitting edema. Wearing a diaper that is slightly blood soaked from gross hematuria. LABS: Hemoglobin 10.6, hematocrit 34, platelet count 526, white count 25.5. Sodium 135, potassium 4, chloride 105, bicarbonate 24, BUN 16, creatinine 2.2, glucose 94. CURRENT MEDICATIONS: Augmentin 500 mg twice a day, Bacid 1 tab by mouth with meals, Hydrea 500 every 2 days, Zoloft 25 daily, ferrous sulfate 325 twice a day, nasal spray 1 spray every 4 hours as needed for nasal dryness, Tylenol 650 by mouth every 4 hours as needed for pain or fever, milk of mag 30 mL daily as needed for constipation, Mylanta 30 mL daily for dyspepsia. The patient had been on D5W with potassium 20 mEq at 75 an hour. ASSESSMENT AND PLAN: This is a 78-year-old male with a history of myelodysplastic disorder and sees Dr. Price. Never smoked cigarettes or a history of bladder cancer with chronic kidney disease stage 3. Baseline creatinine 1.7 to 1.9. Anemia of chronic renal failure, dyslipidemia, peripheral vascular disease, BPH, dysphagia and hypertension, who presented with gross hematuria was found to have a hemoglobin of 6.6 and patient had worsening creatinine of 2.6 with baseline of 1.7 given IV Zosyn for UTI and underwent cystoscopy with evacuation of clots with no clear source of bleeding. Nephrology was consulted and help with management of acute on chronic renal failure and fluid balance. 1. Acute on chronic renal failure, resolved, now back to baseline stage 3 renal failure. Status-post clot evacuation on 08/18/2019. Repeat ultrasound has bilateral hydronephrosis but appears to be stable. Per urologist no repeat cystoscopy is required. No Molina catheter placement. 2. Blood loss anemia secondary to gross hematuria stable, status post three units of red blood cell transfusion, currently IV venofer for iron deficiency anemia secondary to renal failure, 3. Ecoli- urinary tract infection, status-post IV Zosyn, currently on Augmentin until 08/25, to decrease the risk of C-dif. 4. History of myelodysplastic disorder. 5. Chronic thrombocytosis on Hydrea, renally dosed every 48 hours. 6. Depression, chronic Zoloft. 7. Mild bilateral hydronephrosis secondary to clot formation status-post evacuation improved on renal ultrasound. Creatinine is improving. 8. CODE STATUS: DO NOT RESUSCITATE DO NOT INTUBATE. May be discharged to [facility] in the morning if he is stable overnight. MTDD
[2019-08-23 14:00] VITALS: BP 122/80
[2019-08-23 20:46] VITALS: BP 116/80
[2019-08-24] MEDS ORDERED: ONDANSETRON 4MG/2ML VIAL (J2405) IV PRN (01:00)
[2019-08-24 05:53] VITALS: BP 119/79
[2019-08-24 06:14] LABS: HEMATOCRIT 35.7 % (42.0-52.0); HEMOGLOBIN 11.4 g/dl (13.5-17.5); MEAN CORPUSCULAR HEMOGLOBIN 30.2 pg (27.0-33.0); MEAN CORPUSCULAR HGB CONC 31.9 g/dl (32.0-36.5); MEAN CORPUSCULAR VOLUME 94.7 fl (80.0-96.0); PLATELET COUNT, AUTOMATED 535 10^3/uL (150-450); RED BLOOD COUNT 3.77 10^6/uL (4.30-6.10); WHITE BLOOD COUNT 28.8 10^3/uL (4.0-10.0)
[2019-08-24 06:37] LABS: CALCIUM LEVEL 8.2 MG/DL (8.8-10.2); CREATININE FOR GFR 2.05 MG/DL (0.70-1.30); GLOMERULAR FILTRATION RATE 33.5 (>42)
[2019-08-24] MEDS: AUGMENTIN 500 MG TAB PO SCH ×2 (09:15→20:45)
[2019-08-24] MEDS: LACTOBACILLUS ACIDOPHILUS CAP (BACID) PO SCH ×2 (09:15→18:19)
[2019-08-24] MEDS: FERROUS SULFATE 325MG TAB PO SCH ×2 (09:16→20:45)
[2019-08-24] MEDS: HYDROXYUREA 500 MG CAP PO SCH (09:16)
[2019-08-24] MEDS: SERTRALINE HCL 25 MG TABLET PO SCH (09:16)
[2019-08-24 14:00] VITALS: BP 120/88
--- NOTE | 2019-08-24 14:14 | IPN ---
DATE OF SERVICE: 08/24/2019 The patient is arousable, only oriented to himself. Still with blood-tinged urine, but hemoglobin and hematocrit remain stable. Creatinine is back to baseline. Eating well with assistance. Temperature 97.9, pulse 98, respiratory rate 16, blood pressure 119/79, 99% on 3 liters nasal cannula. Lungs are clear to auscultation. No wheezing, rales, or rhonchi. Heart: S1, S2, sinus. Abdomen: Is soft, nontender. Extremities: No clubbing, cyanosis, or pitting edema. LABORATORY DATA: White count 28.8, hemoglobin 11, hematocrit 35, platelet count 535. Sodium 136, potassium 4, chloride 106, bicarbonate 22, BUN 17, creatinine 2.05, glucose of 97. ASSESSMENT AND PLAN: This is a 78-year-old [facility] resident with severe chronic dementia. Follows with Dr. Price for myelodysplastic disorder and chronic thrombocytosis on Hydrea renally dose, chronic kidney disease stage 3, benign prostatic hypertrophy (BPH), dyslipidemia, peripheral vascular disease, hypertension, dysphagia who presented with gross hematuria, hemoglobin of 6.6 and creatinine of 2.6 from baseline of 1.7. IMPRESSION: 1. Acute on chronic renal failure, resolved, now back to baseline stage III creatinine, status post clot evacuation on 08/18/2019. Repeat ultrasound showed mild bilateral hydronephrosis, appears to be stable. No repeat cystoscopy or Molina catheter per urologist. 2. Acute blood loss anemia secondary to gross hematuria, resolved, status post 3 units red blood cell (RBC) transfusion. 3. Chronic renal failure stage III with anemia secondary to renal failure. at baseline creatinine. 4. Escherichia (E.) coli urinary tract infection (UTI), status post intravenous (IV) Zosyn. To finish Augmentin, last dose 08/25/2019. Bacid to decrease risk of Clostridium (C) difficile. 5. History of myelodysplastic disorder and chronic thrombocytosis. On Hydrea, renally dosed. 6. Depression. On Zoloft. CODE STATUS: DO NOT RESUSCITATE (DNR), DO NOT INTUBATE (DNI). May be discharged to [facility] on Sunday. [facility]
[2019-08-24] MEDS: ACETAMINOPHEN TAB 650MG DOSE (2X325MG) PO PRN (20:46)
[2019-08-24 22:00] VITALS: BP 102/68
[2019-08-25 06:00] VITALS: BP 112/62
[2019-08-25 08:19] LABS: HEMATOCRIT 36.3 % (42.0-52.0); HEMOGLOBIN 11.7 g/dl (13.5-17.5); MEAN CORPUSCULAR HEMOGLOBIN 30.9 pg (27.0-33.0); MEAN CORPUSCULAR HGB CONC 32.2 g/dl (32.0-36.5); MEAN CORPUSCULAR VOLUME 95.8 fl (80.0-96.0); PLATELET COUNT, AUTOMATED 512 10^3/uL (150-450); RED BLOOD COUNT 3.79 10^6/uL (4.30-6.10); WHITE BLOOD COUNT 29.5 10^3/uL (4.0-10.0)
[2019-08-25] MEDS: AUGMENTIN 500 MG TAB PO SCH (08:25)
[2019-08-25] MEDS: LACTOBACILLUS ACIDOPHILUS CAP (BACID) PO SCH (08:25)
[2019-08-25] MEDS: SERTRALINE HCL 25 MG TABLET PO SCH (08:25)
[2019-08-25] MEDS: FERROUS SULFATE 325MG TAB PO SCH (08:25)
[2019-08-25 08:40] LABS: CALCIUM LEVEL 8.7 MG/DL (8.8-10.2); CREATININE FOR GFR 2.76 MG/DL (0.70-1.30); GLOMERULAR FILTRATION RATE 23.8 (>42); POTASSIUM SERUM 4.7 MEQ/L (3.5-5.1)
--- NOTE | 2019-08-25 12:32 | DSES ---
DATE OF ADMISSION: 08/17/2019 DATE OF DISCHARGE: 08/25/2019 CONSULTANTS DURING ADMISSION: Dr. Paz, urologist. Dr. Segovia, urologist. Dr. Ronquillo, book jacket cover machine operator. PRIMARY DISCHARGE DIAGNOSES: 1. Gross hematuria, acute blood loss anemia, bladder mass secondary to clot and enlarged prostate. 2. Acute kidney injury superimposed on chronic kidney disease stage III. 3. Chronic dementia. 4. Escherichia (E) coli urinary tract infection (UTI). 5. Myelodysplastic disorder. 6. Chronic thrombocytosis on Hydrea. 7. Depression. 8. Hypertension. 9. Dyslipidemia. 10. History of peripheral vascular disease. 11. Acute delirium on chronic dementia secondary to urinary tract infection (UTI), blood loss anemia and gross hematuria. DISCHARGE MEDICATIONS: - acetaminophen 650 mg twice a day, 650 as needed - Dulcolax 10 mg daily as needed - calcium and vitamin D one capsule twice a day - vitamin D3 2000 units daily - ferrous sulfate 325 mg twice a day - Hydrea 500 every second day - milk of magnesia 30 daily as needed - Senokot two tablets twice a day - sertraline 25 mg daily - saline nasal spray every 4 hours as needed - Fleet enema as needed daily PROCEDURES DURING ADMISSION: 1. Cystoscopy with evacuation of clots on 08/18/2019. HOSPITAL COURSE: This is a 78-year-old demented male from [facility], baseline creatinine of 1.9 with chronic kidney disease stage III, myelodysplastic disorder, chronic thrombocytosis on Hydrea renally dosed, who presented to the emergency room with acute blood loss anemia and gross hematuria with blood loss. The patient had a CT that showed a bladder mass versus clot, admitted under hospitalist, started on IV Zosyn due to Escherichia (E) coli urinary tract infection (UTI), had clot evacuation by Dr. Paz, urologist, on 08/18/2019. The patient's renal function peaked at a creatinine of 3.37 on 08/20/2019 with no improvement. Nephrology was consulted for help in management. The patient received intravenous fluids, a total of 3.2 liters on 08/20/2019 and 1.8 on 08/21/2019 with no significant improvement. The patient continued to have gross hematuria and required 3 units of red blood cell transfusion with hemoglobin improving from 6.6 to 11.7. The patient's urine culture grew out E coli, Zosyn was discontinued and the patient completed a total of 7 days of amoxicillin that was renally dosed. Blood cultures remained negative. 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 Dr. Segovia, urologist, saw the patient, did not recommend any Molina catheter or repeat cystoscopy. The patient's mass in the bladder, "most probably represented a blood clot or prostatic hypertrophy with intravesical protrusion." Dr. Segovia recommended continued close observation, possible return to the operating room for cystoscopy and clot evacuation if persistent hematuria. After 3 unit red blood cell transfusion, hematuria resolved. The patient is off the heparin subcutaneously and kept on compression stockings. He had persistent elevated white count due to known history of myelodysplastic disorder with a peak of 36.3 and current white count of 29.5. Platelet count remains elevated with a peak of 655 and current 512 on chronic Hydrea. He is medically stable for hospital discharge. PHYSICAL EXAMINATION: VITAL SIGNS: Temperature 97.4, pulse 85, respiratory rate 16, blood pressure 112/62, 99% on 1 liter nasal cannula. GENERAL: The patient is awake, alert, oriented to himself only. He is disoriented to place and time. Very hard of hearing. Edentulous. No jugular venous distention (JVD). No thyromegaly. Anicteric sclerae. No pallor. LUNGS: Clear. No wheezing or rales. HEART: S1, S2. Sinus. ABDOMEN: Soft, nontender, nondistended. Wearing diaper. EXTREMITIES: No cyanosis, clubbing or any pitting edema. LABORATORY DATA: On discharge: White count 29.5, hemoglobin 11, hematocrit 36, platelet count 512, sodium 138, potassium 4.7, chloride 107, bicarbonate 22, BUN 23, creatinine 2.76, glucose of 91. Microbiology: Urine culture on 08/17/2019 E coli, which is pansensitive. CT of the abdomen on 08/17/2019 shows right lung base nodule, contrast CT recommended, filling defect, either a mass, blood or a combination of both. Cholelithiasis with chronic changes and other findings. Chest x-ray on 08/19/2019 showed no acute cardiopulmonary process. Renal ultrasound on 08/20/2019 showed diffuse thickening of the bladder wall, ill defined septated mass in posterior bladder measuring 2.8 x 5.6, consistent with bladder neoplasm. Bilateral hydronephrosis related to obstructions that can be present due to bladder mass. Small cyst in the right kidney. CT of the head on 08/21/2019 showed chronic findings, no acute intracranial pathology. Time spent on discharge 30 minutes.
== END 2019-08-25 10:45 | DRG 683 ==
LOC: EDBD 09:41 → M ED 09:41 → M ED INP 11:42 → M MS5PR 13:10
PROVIDERS: ADMIT Family Medicine; ATTEND General Practice
PROC: 0TCB8ZZ Extirpation of Matter from Bladder, Via Natural or Artificial Opening Endoscopic (ICD-10-PCS; 2019-08-17)
PROC: 0TCB8ZZ Extirpation of Matter from Bladder, Via Natural or Artificial Opening Endoscopic (ICD-10-PCS; principal; 2019-08-18 16:00)
PROC: 30233N1 Transfusion of Nonautologous Red Blood Cells into Peripheral Vein, Percutaneous Approach (ICD-10-PCS; 2019-08-20)
DX: N17.9 Acute kidney failure, unspecified (principal); D47.1 Chronic myeloproliferative disease; I13.0 Hypertensive heart and chronic kidney disease with heart failure and stage 1 through stage 4 chronic kidney disease, or unspecified chronic kidney disease; E87.0 Hyperosmolality and hypernatremia; D62 Acute posthemorrhagic anemia; N39.0 Urinary tract infection, site not specified; F03.91 Unspecified dementia, unspecified severity, with behavioral disturbance; E87.2 Acidosis; R31.0 Gross hematuria; N40.1 Benign prostatic hyperplasia with lower urinary tract symptoms; N13.30 Unspecified hydronephrosis; N18.4 Chronic kidney disease, stage 4 (severe); I50.9 Heart failure, unspecified; E78.5 Hyperlipidemia, unspecified; F32.9 Major depressive disorder, single episode, unspecified; B96.29 Other Escherichia coli [E. coli] as the cause of diseases classified elsewhere; N18.3 Chronic kidney disease, stage 3 (moderate); I70.209 Unspecified atherosclerosis of native arteries of extremities, unspecified extremity; Z79.899 Other long term (current) drug therapy; D46.9 Myelodysplastic syndrome, unspecified; I25.10 Atherosclerotic heart disease of native coronary artery without angina pectoris; K21.9 Gastro-esophageal reflux disease without esophagitis; Z66 Do not resuscitate

== ENCOUNTER → 2019-12-23 | Outpatient (REF) | payer MEDICARE, MEDICAID ==
[~2019-12-23] MED LIST changes: +CALCCAP4 PO; +D 202000 PO; +MACR100C43 PO
[2019-12-23 13:02] LABS: APPEARANCE, URINE CLOUDY (CLEAR); BACTERIA, URINE AUTO 2+ (NEGATIVE); BILIRUBIN, URINE AUTO NEGATIVE (NEGATIVE); BLOOD, URINE BLOOD 1+ (NEGATIVE); COLOR, URINE YELLOW (YELLOW); GLUCOSE, URINE (UA) AUTO NEGATIVE (NEGATIVE); KETONE, URINE AUTO NEGATIVE (NEGATIVE); LEUKOCYTE ESTERASE, URINE AUTO 3+ (NEGATIVE); MUCUS, URINE SMALL (NEGATIVE); NITRITE, URINE AUTO POSITIVE (NEGATIVE); PROTEIN, URINE AUTO 2+ mg/dL (NEGATIVE); RBC, URINE AUTO 30 /HPF (0-3); SPECIFIC GRAVITY URINE AUTO 1.015 (1.002-1.035); SQUAMOUS EPITHELIAL CELL UR AU 0 /HPF (0-6); TRANSITIONAL EPITHELIAL AUTO 11 /HPF; UROBILINOGEN, URINE AUTO 0.2 mg/dL (0.0-2.0); WBC, URINE AUTO TNTC /HPF (0-3)
== END ==
LOC: SKLAB8 11:00
PROVIDERS: ATTEND Internal Medicine
DX: N50.89 Other specified disorders of the male genital organs (principal); Z87.440 Personal history of urinary (tract) infections